=== PATIENT | female | born 1955 | race Caucasian/White ===

== ENCOUNTER 2017-06-11 19:57 | Inpatient (IN) | payer MEDICARE, MEDICAID ==
[2017-06-11 20:32] LABS: % BASOPHILS 1.5 % (0.0-2.0); % EOSINOPHILS 1.5 % (0.0-5.0); % LYMPHOCYTES 35.4 % (20.0-50.0); % NEUTROPHILS 55.6 % (40.0-80.0); BASOPHILE ABSOLUTE 0.1 Th/cumm (0-0.2); EOSINOPHILE ABSOLUTE 0.1 Th/cmm (0.1-0.4); HEMATOCRIT 41.5 % (41.0-60); HEMOGLOBIN 14.1 gm/dL (12-16); LYMPHOCYTE ABSOLUTE 2.9 Th/cmm (1.5-3.0); MEAN CELL VOLUME 93.2 fl (81-100); MEAN CORPUSCULAR HEMOGLOBIN 31.6 pg (27.0-31.0); MEAN CORPUSCULAR HGB CONC 33.9 pg (28.0-36.0); MEAN PLATELET VOLUME 7.6 fl; MONOCYTE ABSOLUTE 0.5 Th/cmm (0.3-1.0); NEUTROPHILE ABSOLUTE 4.5 Th/cmm (1.8-8.0); PLATELET COUNT 264 Th/cmm (150-400); RED BLOOD COUNT 4.46 Mil/cmm (3.80-5.10); RED CELL DISTRIBUTION WIDTH 13.4 % (11.5-20.0); WHITE BLOOD COUNT 8.1 Th/cmm (4.8-10.8)
--- NOTE | 2017-06-11 20:34 | ED Physician Chart ---
ED Chief Complaint/HPI - Patient Information Date Seen:: 06/11/17 Time Seen:: 20:00 Chief Complaint:: hallucinations and uncooperative History of Present Illness:: THIS IS A 61 YO PSYCH PATIENT SENT FROM A [facility] FOR AN EVALUATION AND TREATMENT BECAUSE SHE HAS BEEN EXTREMELY UNCOOPERATIVE. SHE IS HALLUCINATING AND UNCOOPERATIVE. Allergies:: Allergies Allergy/AdvReac Type Severity Reaction Status Date / Time aspirin Allergy Verified 06/11/17 20:18 codeine Allergy Verified 06/11/17 20:18 Vitals:: Vital Signs - 8 hr 06/11/17 20:00 Temp 97.9 F HR 90 RR 18 BP 145/77 O2 Sat % 98 Historian:: EMS, Medical Records Review:: Nurse's Note Reviewed ED Review of Systems - Review of Systems General/Constitutional: No fever, No chills, No weight loss, No weakness, No diaphoresis, No edema, No loss of appetite, Other (THE PATIENT REFUSED TO GIVE A REVIEW OF SYSTEMS.) Skin: No skin lesions, No rash, No bruising Head: No headache, No light-headedness Eyes: No loss of vision, No pain, No diplopia ENT: No earache, No nasal drainage, No sore throat, No tinnitus Neck: No neck pain, No swelling, No thyromegaly, No stiffness, No mass noted Cardio Vascular: No chest pain, No palpitations, No PND, No orthopnea, No edema Pulmonary: No SOB, No cough, No sputum, No wheezing GI: No nausea, No vomiting, No diarrhea, No pain, No melena, No hematochezia, No constipation, No hematemesis G/U: No dysuria, No frequency, No hematuria Musculoskeletal: No bone or joint pain, No back pain, No muscle pain Endocrine: No polyuria, No polydipsia Psychiatric: No prior psych history, No depression, No anxiety, No suicidal ideation Hematopoietic: No bruising, No lymphadenopathy Allergic/Immuno: No urticaria, No angioedema Neurological: No syncope, No focal symptoms, No weakness, No paresthesia, No headache, No seizure, No dizziness, No confusion, No vertigo ED Past Medical History - Past Medical History Obtainable: Yes Past Medical History: Other (ANEMIA) Family History: None Social History: Smoker, No Alcohol, No Drug Use, Care Facility Surgical History: None Psychiatricy History: Schizophrenia Medication: Reviewed Family Medical History - Family Member Mother History Unknown: Yes ED Physical Exam - Physical Examination General/Constitutional: Awake, Well-developed, well-nourished, Alert, No distress, GCS 15, Non-toxic appearing, Ambulatory Other Gen/Cons comments:: UNCOOPERATIVE AND HALLUCINATING Head: Atraumatic Eyes: Lids, conjuctiva normal, PERRL, EOMI Skin: Nl inspection, No rash, No skin lesions, No ecchymosis, Well hydrated, No lymphadenopathy ENMT: External ears, nose nl, Nasal exam nl, Lips, teeth, gums nl Neck: Nontender, Full ROM w/o pain, No JVD, No nuchal rigidity, No bruit, No mass, No stridor Respiratory: Nl effort/Exclusion, Clear to Auscultation, No Wheeze/Rhonchi/Rales Cardio Vascular: RRR, No murmur, gallop, rubs, NL S1 S2 GI: No tenderness/rebounding/guarding, No organomegaly, No hernia, Normal BS's, Nondistended, No mass/bruits, No McBurney tenderness : No CVA tenderness Extremities: No tenderness or effusion, Full ROM, normal strength in all extremities, No edema, Normal digits & nails Neuro/Psych: Alert/oriented, DTR's symmetric, Normal sensory exam, Normal motor strength, Judgement/insight normal, Mood normal, Normal gait, No focal deficits Misc: Normal back, No paraspinal tenderness ED Assessment - Assessment General Assessment: PSYCHOSIS ED Septic Shock - . Is Septic Shock (SBP<90, OR Lactate>4 mmol\L) present?: No - <6hrs of presentation: Vital Signs: Vital Signs - 8 hr 06/11/17 20:00 Temp 97.9 F HR 90 RR 18 BP 145/77 O2 Sat % 98 ED Reassessment (Disposition) - Reassessment Reassessment:: PSYCHOSIS Reassessment Condition:: Unchanged - Diagnosis Diagnosis:: PSYCHOSIS - Patient Disposition Condition at Disposition:: Unchanged ED Discharge Plan - Patient Disposition Admit/Discharge/Transfer: Acute Care w/in this hosp Additional Instructions: THIS PATIENT WILL CARED FOR BY DR. GARCÍA STARTING AT 0700.
[2017-06-11 20:51] LABS: INR 1.11 (0.5-1.4); PROTHROMBIN TIME (TEST) 11.6 SECONDS (9.5-11.5)
[2017-06-11 20:55] LABS: ALB/GLOB RATIO 1.2 (1.0-1.8); ALBUMIN 4.2 gm/dL (3.7-5.3); ALKALINE PHOSPHATASE 86 U/L (34-104); ANION GAP 16.9 (7.0-16.0); BILIRUBIN,TOTAL 0.5 mg/dL (0.3-1.0); BUN - UREA NITROGEN 17 mg/dL (7-25); CALCIUM SERUM 9.9 mg/dL (8.6-10.3); CARBON DIOXIDE 21.9 mEq/L (21.0-31.0); CHLORIDE 98 mEq/L (98-107); CREATININE - SERUM 0.7 mg/dL (0.6-1.2); GFR AFRICAN-AMERICAN > 60.0 ml/min (>90); GFR NON AFRICAN-AMERICAN > 60.0 ml/min; GLUCOSE 69 mg/dL (70-105); POTASSIUM SERUM 3.8 mEq/L (3.5-5.1); SGOT 16 U/L (13-39); SGPT/ALT 11 U/L (7-52); SODIUM SERUM 133 mEq/L (136-145); TOTAL PROTEIN,SERUM 7.8 gm/dL (6.0-8.3)
[2017-06-12 08:08] LABS: IRON LC 84 ug/dL (27-159); TIBC (LC) 276 ug/dL (250-450); UIBC 192 ug/dL (131-425)
--- NOTE | 2017-06-12 09:07 | Diagnostic Imaging Report ---
CHEST X-RAY: AP view INDICATION: pain COMPARISON: None FINDINGS: Mild chronic lung changes are noted. There is no focal consolidation or pleural effusions The heart is normal in size. Degenerative changes of the spine are noted. IMPRESSION: Mild chronic lung changes. No focal consolidation identified.
[2017-06-12 11:10] VITALS: BP 140/79
[2017-06-12] MEDS ORDERED: Maalox 30 mL Cup PO PRN ×2 (11:11→11:26)
[2017-06-12] MEDS ORDERED: Magnesium Hydroxide (MOM) 30 mL UDC PO PRN (11:11)
--- NOTE | 2017-06-12 13:23 | History & Physical ---
ADMIT DATE: 06/12/2017 CHIEF COMPLAINT: Agitated behavior. This is a limited consultation. HISTORY OF PRESENT ILLNESS: This is a 61-year-old female with history of psych disorder, was admitted from nursing facility secondary to above complaints. The patient is a best historian. Denies chest pain, shortness of breath. PAST MEDICAL HISTORY: As mentioned in history of present illness. PAST SURGICAL HISTORY: No previous surgeries in the past. ALLERGIES: ASPIRIN, CODEINE. MEDICATIONS: Cogentin, Ativan, multivitamin, Zyprexa. FAMILY HISTORY: Noncontributory. SOCIAL HISTORY: Smokes and drinks on occasion. No intravenous drug use. 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 REVIEW OF SYSTEMS: GENERAL: Complains of not feeling well. HEENT: No blurred vision or pain. LUNGS: No history of COPD or asthma. The patient is a chronic smoker. HEART: ____. ABDOMEN: No nausea, vomiting or pain. GENITOURINARY: The patient denies increased frequency or dysuria. NEUROLOGIC: No headaches, seizure or syncope. PSYCHIATRIC: Stable. PHYSICAL EXAMINATION: VITAL SIGNS: Blood pressure 140/79, respiration rate 16, pulse 84, temperature is ____. GENERAL: Elderly female, appears stated age. NECK: Supple. No mass. LUNGS: Equal breath sounds, few rhonchi. HEART: Regular rate and rhythm without appreciable murmur. ABDOMEN: Soft, globular. EXTREMITIES: No clubbing, cyanosis or edema. LABORATORY DATA: Sodium 132, potassium 2.8, BUN ____, creatinine 0.7. WBC 8.0, hemoglobin 14. ASSESSMENT AND PLAN: Hyponatremia. ALLERGIC TO ASPIRIN AND CODEINE, schizoaffective disorder, agitation. We will provide the patient with nonsteroidal anti-inflammatories. We will correct electrolyte abnormalities. We will continue to monitor the patient closely. Case was discussed with nursing staff as well as the patient. JOB# [id number]
--- NOTE | 2017-06-12 16:33 | Psychosocial Evaluation ---
DATE OF SERVICE: 06/12/2017 IDENTIFYING DATA: The patient is a 61-year-old woman, resident of a [facility]. Information obtained by directly interviewing the patient as well as reviewing the admission papers. JUSTIFICATION FOR HOSPITALIZATION: The patient is admitted here on a 5150 as being gravely disabled. CHIEF COMPLAINT: "You tell me why I am here. I should not tell anyone." HISTORY OF PRESENT ILLNESS: This is the first psychiatric hospitalization to [facility] for this patient who is reported to have been agitated and has not been following through. The patient has been mentioning that there is no reason for her here and stating that I should tell her why she has been in here. Review of the chart indicated that the patient has been brought from the intermediate for her extremely uncooperative behavior and is hallucinating and is reported to be noncompliant with the medication. The patient has been cleared medically from the Emergency Room and has been transferred over here for stabilization. I tried to get some information from the patient, but patient is not cooperative. PAST PSYCHIATRIC HISTORY: Details are not known. MEDICAL HISTORY: The patient is reported to have been on Zyprexa and Haldol Decanoate, but the patient is reported to be noncompliant with the medications. MEDICAL HISTORY: Physical examination is requested and done by Dr. Clayton. SUBSTANCE ABUSE HISTORY: None. PHYSICAL OR SEXUAL ABUSE HISTORY: None. LEGAL PROBLEMS: None at this time. STRENGTH AND ASSETS: The patient is superficially cooperative and poorly motivated. MENTAL STATUS EXAMINATION: The patient is alert and oriented x 3. Short and long-term memory are noted to be intact, but the patient is noted to be very paranoid. Personal hygiene continues to be poor. DIAGNOSTIC IMPRESSION: AXIS I: Schizophrenia, chronic paranoid type. AXIS II: None. AXIS III: As per Dr. Clayton. IMMEDIATE TREATMENT PLAN: The patient is going to be observed on inpatient unit, provided with supportive psychotherapy. The patient is going to be encouraged to participate in the groups and verbalize the concerns. Once stabilized, the patient is going to be discharged to [facility] to be followed up on an outpatient basis. JOB# [id number]
[2017-06-12] MEDS ORDERED: Benztropine 1 MG TAB PO SCH (17:00)
[2017-06-13] MEDS: Multivitamin Tab PO SCH (09:33)
--- NOTE | 2017-06-13 11:39 | Internal Medicine Prog Note ---
Internal Medicine Subjective - Subjective Patient seen and examined:: with staff, chart reviewed Patient is:: awake, verbal, interactive Patient Complaints of:: congestion Per staff patient has:: no adverse event, no episodes of fall, eating well, agitated, tolerating meds Internal Medicine Objective - Results Result Diagrams: 06/11/17 20:25 06/11/17 20:25 Recent Labs: Laboratory Last Values WBC 8.1 Th/cmm (4.8-10.8) 06/11/17 20: RBC 4.46 Mil/cmm (3.80-5.10) 06/11/17 20: Hgb 14.1 gm/dL (12-16) 06/11/17 20: Hct 41.5 % (41.0-60) 06/11/17: MCV 93.2 fl (81-100) 06/11/17 20: MCH 31.6 pg (27.0-31.0) H 06/11/17 20: MCHC Differential 33.9 pg (28.0-36.0) 06/11/17: RDW 13.4 % (11.5-20.0) 06/11/17 20: Plt Count 264 Th/cmm (150-400) 06/11/17 20: MPV 7.6 fl 06/11/17 20: Neutrophils % 55.6 % (40.0-80.0) 06/11/17 20: Lymphocytes % 35.4 % (20.0-50.0) 06/11/17: Monocytes % 6.0 % (2.0-10.0) 06/11/17: Eosinophils % 1.5 % (0.0-5.0) 06/11/17 20: Basophils % 1.5 % (0.0-2.0) 06/11/17 20: PT 11.6 SECONDS (9.5-11.5) H 06/11/17 20: INR 1.11 (0.5-1.4) 06/11/17 20:25 Sodium 133 mEq/L (136-145) L 06/11/17 20:25 Potassium 3.8 mEq/L (3.5-5.1) 06/11/17 20:25 Chloride 98 mEq/L (98-107) 06/11/17 20:25 Carbon Dioxide 21.9 mEq/L (21.0-31.0) 06/11/17 20:25 Anion Gap 16.9 (7.0-16.0) H 06/11/17 20:25 BUN 17 mg/dL (7-25) 06/11/17 20:25 Creatinine 0.7 mg/dL (0.6-1.2) 06/11/17 20:25 Est GFR ( Amer) > 60.0 ml/min (>90) 06/11/17 20:25 Est GFR (Non-Af Amer) > 60.0 ml/min 06/11/17 20:25 BUN/Creatinine Ratio 24.3 06/11/17 20:25 Glucose 69 mg/dL (70-105) L 06/11/17 20:25 Calcium 9.9 mg/dL (8.6-10.3) 06/11/17 20:25 Iron 84 ug/dL (27-159) 06/11/17 20:25 TIBC 276 ug/dL (250-450) 06/11/17 20:25 Iron Saturation 30 % (15-55) 06/11/17 20:25 Unsaturated IBC 192 ug/dL (131-425) 06/11/17 20:25 Total Bilirubin 0.5 mg/dL (0.3-1.0) 06/11/17 20:25 AST 16 U/L (13-39) 06/11/17 20:25 ALT 11 U/L (7-52) 06/11/17 20:25 Alkaline Phosphatase 86 U/L (34-104) 06/11/17 20:25 Troponin I < 0.01 ng/mL (0.01-0.05) L 06/11/17 20:25 Total Protein 7.8 gm/dL (6.0-8.3) 06/11/17 20:25 Albumin 4.2 gm/dL (3.7-5.3) 06/11/17 20:25 Globulin 3.6 gm/dL 06/11/17 20:25 Albumin/Globulin Ratio 1.2 (1.0-1.8) 06/11/17 20:25 TSH 1.45 uIU/ml (0.34-5.60) 06/11/17 20:25 - Physical Exam Vitals and I&O: Vital Signs Temp 97.6 F 06/13/17 06:46 Pulse 95 06/13/17 06:46 Resp 20 06/13/17 06:46 BP 125/77 06/13/17 06:46 Pulse Ox 98 06/13/17 06:46 Intake & Output 06/12/17 06/13/17 06/13/17 18:59 06:59 18:59 Other: # Voids 1 Active Medications: Current Medications Acetaminophen (Tylenol) 650 mg PO Q4H PRN PRN Reason: Pain Or Fever above 101 Stop: 08/11/17 11:25 Al Hydrox/Mg Hydrox/Simethicone (Maalox) 30 ml PO Q4HR PRN PRN Reason: GI DISTRESS Stop: 08/11/17 11:10 Benztropine Mesylate (Cogentin) 1 mg PO HS CESIA Stop: 08/11/17 20:59 Last Admin: 06/12/17 21:02 Dose: Not Given Lorazepam (Ativan) 0.5 mg PO Q4HR PRN; Protocol PRN Reason: Agitation Stop: 07/12/17 11:10 Magnesium Hydroxide (Milk Of Magnesia) 30 ml PO HS PRN PRN Reason: Constipation Multivitamins/Vitamin C (Theragran) 1 tab PO DAILY CESIA Stop: 08/12/17 08:59 Last Admin: 06/13/17 09:33 Dose: Not Given Olanzapine (Zyprexa) 10 mg PO HS CESIA PRN Reason: Protocol Stop: 08/11/17 20:59 Last Admin: 06/12/17 21:03 Dose: Not Given Zolpidem Tartrate (Ambien) 5 mg PO HSMR1 PRN PRN Reason: Insomnia Stop: 08/11/17 11:10 General: demented HEENT: NC/AT, PERRLA Neck: Supple, No JVD, No LAD, deformity Lungs: CTAB Cardiovascular: RRR, Normal S1, Normal S2, without murmur Abdomen: soft, non-tender, non-distended, positive bowel sound Extremities: excoriation Internal Medicine Assmt/Plan - Assessment Assessment: ASSESSMENT AND PLAN: Hyponatremia. ALLERGIC TO ASPIRIN AND CODEINE, schizoaffective disorder, agitation. - Plan Plan: We will provide the patient with nonsteroidal anti-inflammatories. We will correct electrolyte abnormalities. We will continue to monitor the patient closely. Case was discussed with nursing staff as well as the patient.
--- NOTE | 2017-06-14 01:02 | Progress Notes ---
DATE: 06/13/2017 SUBJECTIVE: Staff was spoken to. The patient is interviewed. Mood is noted to be depressed. Affect is constricted. Insight and judgment at this time are noted to be still impaired. Impulse control seems to be poor. Coping skills are noted to very poor. The patient is refusing to eat. The patient continues to be very paranoid, very irritable and angry. The patient is currently on 10 mg of Zyprexa at bedtime. The patient has been refusing to comply with the treatment plans. No side effects to the medications are noted. ASSESSMENT: The patient is still paranoid. PLAN: To continue the patient with the supportive therapy, encouraged the patient to verbalize the concerns rather than to act out. [facility]# [id number]
[2017-06-14] MEDS: Multivitamin Tab PO SCH (09:15)
--- NOTE | 2017-06-14 12:43 | Internal Medicine Prog Note ---
Internal Medicine Subjective - Subjective Patient seen and examined:: with staff, chart reviewed Patient is:: awake, verbal, interactive Patient Complaints of:: congestion Per staff patient has:: no adverse event, no episodes of fall, eating well, agitated, tolerating meds Internal Medicine Objective - Results Result Diagrams: 06/11/17 20:25 06/11/17 20:25 Recent Labs: Laboratory Last Values WBC 8.1 Th/cmm (4.8-10.8) 06/11/17 20: RBC 4.46 Mil/cmm (3.80-5.10) 06/11/17 20: Hgb 14.1 gm/dL (12-16) 06/11/17 20: Hct 41.5 % (41.0-60) 06/11/17: MCV 93.2 fl (81-100) 06/11/17 20: MCH 31.6 pg (27.0-31.0) H 06/11/17 20: MCHC Differential 33.9 pg (28.0-36.0) 06/11/17: RDW 13.4 % (11.5-20.0) 06/11/17 20: Plt Count 264 Th/cmm (150-400) 06/11/17 20: MPV 7.6 fl 06/11/17 20: Neutrophils % 55.6 % (40.0-80.0) 06/11/17 20: Lymphocytes % 35.4 % (20.0-50.0) 06/11/17: Monocytes % 6.0 % (2.0-10.0) 06/11/17: Eosinophils % 1.5 % (0.0-5.0) 06/11/17 20: Basophils % 1.5 % (0.0-2.0) 06/11/17 20: PT 11.6 SECONDS (9.5-11.5) H 06/11/17 20: INR 1.11 (0.5-1.4) 06/11/17 20:25 Sodium 133 mEq/L (136-145) L 06/11/17 20:25 Potassium 3.8 mEq/L (3.5-5.1) 06/11/17 20:25 Chloride 98 mEq/L (98-107) 06/11/17 20:25 Carbon Dioxide 21.9 mEq/L (21.0-31.0) 06/11/17 20:25 Anion Gap 16.9 (7.0-16.0) H 06/11/17 20:25 BUN 17 mg/dL (7-25) 06/11/17 20:25 Creatinine 0.7 mg/dL (0.6-1.2) 06/11/17 20:25 Est GFR ( Amer) > 60.0 ml/min (>90) 06/11/17 20:25 Est GFR (Non-Af Amer) > 60.0 ml/min 06/11/17 20:25 BUN/Creatinine Ratio 24.3 06/11/17 20:25 Glucose 69 mg/dL (70-105) L 06/11/17 20:25 Calcium 9.9 mg/dL (8.6-10.3) 06/11/17 20:25 Iron 84 ug/dL (27-159) 06/11/17 20:25 TIBC 276 ug/dL (250-450) 06/11/17 20:25 Iron Saturation 30 % (15-55) 06/11/17 20:25 Unsaturated IBC 192 ug/dL (131-425) 06/11/17 20:25 Total Bilirubin 0.5 mg/dL (0.3-1.0) 06/11/17 20:25 AST 16 U/L (13-39) 06/11/17 20:25 ALT 11 U/L (7-52) 06/11/17 20:25 Alkaline Phosphatase 86 U/L (34-104) 06/11/17 20:25 Troponin I < 0.01 ng/mL (0.01-0.05) L 06/11/17 20:25 Total Protein 7.8 gm/dL (6.0-8.3) 06/11/17 20:25 Albumin 4.2 gm/dL (3.7-5.3) 06/11/17 20:25 Globulin 3.6 gm/dL 06/11/17 20:25 Albumin/Globulin Ratio 1.2 (1.0-1.8) 06/11/17 20:25 TSH 1.45 uIU/ml (0.34-5.60) 06/11/17 20:25 - Physical Exam Vitals and I&O: Vital Signs Temp 97.7 F 06/14/17 06:04 Pulse 82 06/14/17 06:04 Resp 20 06/14/17 06:04 BP 105/53 06/14/17 06:04 Pulse Ox 99 06/14/17 06:04 Intake & Output 06/13/17 06/14/17 06/14/17 18:59 06:59 18:59 Intake Total 1200 240 Output Total 3 Balance 1197 240 Intake: Oral 1200 240 Output: Stool 3 Other: # Voids 1 # Bowel Movements 0 Active Medications: Current Medications Acetaminophen (Tylenol) 650 mg PO Q4H PRN PRN Reason: Pain Or Fever above 101 Stop: 08/11/17 11:25 Al Hydrox/Mg Hydrox/Simethicone (Maalox) 30 ml PO Q4HR PRN PRN Reason: GI DISTRESS Stop: 08/11/17 11:10 Benztropine Mesylate (Cogentin) 1 mg PO HS CESIA Stop: 08/11/17 20:59 Last Admin: 06/13/17 21:00 Dose: Not Given Lorazepam (Ativan) 0.5 mg PO Q4HR PRN; Protocol PRN Reason: Agitation Stop: 07/12/17 11:10 Magnesium Hydroxide (Milk Of Magnesia) 30 ml PO HS PRN PRN Reason: Constipation Multivitamins/Vitamin C (Theragran) 1 tab PO DAILY CESIA Stop: 08/12/17 08:59 Last Admin: 06/14/17 09:15 Dose: Not Given Olanzapine (Zyprexa) 10 mg PO HS CESIA PRN Reason: Protocol Stop: 08/11/17 20:59 Last Admin: 06/13/17 21:00 Dose: Not Given Zolpidem Tartrate (Ambien) 5 mg PO HSMR1 PRN PRN Reason: Insomnia Stop: 08/11/17 11:10 General: demented HEENT: NC/AT, PERRLA Neck: Supple, No JVD, No LAD, deformity Lungs: CTAB Cardiovascular: RRR, Normal S1, Normal S2, without murmur Abdomen: soft, non-tender, non-distended, positive bowel sound Extremities: excoriation Internal Medicine Assmt/Plan - Assessment Assessment: ASSESSMENT AND PLAN: Hyponatremia. ALLERGIC TO ASPIRIN AND CODEINE, schizoaffective disorder, agitation. - Plan Plan: We will provide the patient with nonsteroidal anti-inflammatories. We will correct electrolyte abnormalities. We will continue to monitor the patient closely. Case was discussed with nursing staff as well as the patient.
--- NOTE | 2017-06-14 19:45 | Consultation ---
DATE OF CONSULTATION: 06/14/2017 REFERRING PHYSICIAN: Marisa Garza M.D. TYPE OF CONSULTATION: Psychology. HISTORY OF PRESENT ILLNESS: The patient is a 61-year-old female. The patient is a resident of [facility]. The following is by review of the medical record and by patient's self report. The patient is admitted on a 5150 hold as being gravely disabled. The patient is stating that she does not understand why she is in the hospital and that we should not be talking to anybody about her hospitalization. According to record review, the staff at the patient's facility report that she has been agitated lately and behaviorally unredirectable. The patient is noncompliant with medication and has been resisting care. The patient is mostly uncooperative and not providing much information. The patient did not answer the question about suicidal ideation, plan or intention. PAST MEDICAL HISTORY: Please see history and physical by Dr. Clayton. PAST PSYCHIATRIC HISTORY: Details are unavailable at the time of this interview. SUBSTANCE ABUSE HISTORY: None. PSYCHOSOCIAL HISTORY: The patient is a resident of [facility]. The patient did not answer questions about family history or relationships. She did not answer questions about educational history, occupational history or lutheran affiliation. She did not answer questions about physical or sexual abuse or any legal questions or issues she is having at the time of this clinical interview. MENTAL STATUS EXAMINATION: The patient appears to be her stated age. The patient's attitude is guarded and suspicious. Eye contact is poor. Speech is delayed with verbal outbursts at times. Mood is irritable. Affect is constricted. The patient did not answer questions about suicidal or homicidal ideation, plan or intention. The patient is exhibiting paranoid ideation. The patient's behavior has been difficult to redirect. The patient is noncompliant with medication. Personal hygiene is poor. Impulse control is inadequate. Concentration is poor. Sensorium is alert and oriented to place and self only. The patient's memory seems to be impaired for short term dimension, long-term dimension needs further evaluation, but appears to be impaired. The patient did not participate in the interpretation of proverbs or respond to any further clinical interview questions. Insight is impaired. Judgment is impaired. DIAGNOSTIC IMPRESSION: AXIS I: History of schizophrenia, chronic paranoid type. AXIS II: Deferred. AXIS III: Refer to Dr. Clayton. TREATMENT PLAN: The patient has been seen by Dr. Garza for psychiatric evaluation and for the management of the patient's psychotropic medications. We will provide supportive psychotherapy to include de-escalation as well as motivational enhancement for the patient to become compliant with all aspects of her care and treatment plan specifically her medication regimen. We will provide coping strategies for phase of life issues. We will provide reality orientation and differentiation and integration to assist the patient to focus on reality based thought versus paranoid delusional thought. We will provide continued opportunities for the patient to contract for safety and no self harm prior to discharge. Thank you, Dr. Garza for this consult and the opportunity to participate with you in this patient's care. JOB# [id number] MTDD
[2017-06-15] MEDS: Multivitamin Tab PO SCH (08:00)
--- NOTE | 2017-06-15 11:42 | Internal Medicine Prog Note ---
Internal Medicine Subjective - Subjective Service Date: 06/15/17 Patient is:: awake, verbal, interactive Patient Complaints of:: congestion Per staff patient has:: no adverse event, no episodes of fall, eating well, agitated, tolerating meds Internal Medicine Objective - Results Result Diagrams: 06/11/17 20:25 06/11/17 20: Recent Labs: Laboratory Last Values WBC 8.1 Th/cmm (4.8-10.8) 06/11/17 20: RBC 4.46 Mil/cmm (3.80-5.10) 06/11/17 20: Hgb 14.1 gm/dL (12-16) 06/11/17: Hct 41.5 % (41.0-60) 06/11/17: MCV 93.2 fl (81-100) 06/11/17 20: MCH 31.6 pg (27.0-31.0) H 06/11/17: MCHC Differential 33.9 pg (28.0-36.0) 06/11/17: RDW 13.4 % (11.5-20.0) 06/11/17: Plt Count 264 Th/cmm (150-400) 06/11/17: MPV 7.6 fl 06/11/17: Neutrophils % 55.6 % (40.0-80.0) 06/11/17: Lymphocytes % 35.4 % (20.0-50.0) 06/11/17: Monocytes % 6.0 % (2.0-10.0) 06/11/17: Eosinophils % 1.5 % (0.0-5.0) 06/11/17: Basophils % 1.5 % (0.0-2.0) 06/11/17: PT 11.6 SECONDS (9.5-11.5) H 06/11/17 20: INR 1.11 (0.5-1.4) 06/11/17 20:25 Sodium 133 mEq/L (136-145) L 06/11/17 20: Potassium 3.8 mEq/L (3.5-5.1) 06/11/17 20: Chloride 98 mEq/L (98-107) 06/11/17 20:25 Carbon Dioxide 21.9 mEq/L (21.0-31.0) 06/11/17 20:25 Anion Gap 16.9 (7.0-16.0) H 06/11/17 20:25 BUN 17 mg/dL (7-25) 06/11/17 20:25 Creatinine 0.7 mg/dL (0.6-1.2) 06/11/17 20:25 Est GFR ( Amer) > 60.0 ml/min (>90) 06/11/17 20:25 Est GFR (Non-Af Amer) > 60.0 ml/min 06/11/17 20:25 BUN/Creatinine Ratio 24.3 06/11/17 20:25 Glucose 69 mg/dL (70-105) L 06/11/17 20:25 Calcium 9.9 mg/dL (8.6-10.3) 06/11/17 20:25 Iron 84 ug/dL (27-159) 06/11/17 20:25 TIBC 276 ug/dL (250-450) 06/11/17 20:25 Iron Saturation 30 % (15-55) 06/11/17 20:25 Unsaturated IBC 192 ug/dL (131-425) 06/11/17 20:25 Total Bilirubin 0.5 mg/dL (0.3-1.0) 06/11/17 20:25 AST 16 U/L (13-39) 06/11/17 20:25 ALT 11 U/L (7-52) 06/11/17 20:25 Alkaline Phosphatase 86 U/L (34-104) 06/11/17 20:25 Troponin I < 0.01 ng/mL (0.01-0.05) L 06/11/17 20:25 Total Protein 7.8 gm/dL (6.0-8.3) 06/11/17 20:25 Albumin 4.2 gm/dL (3.7-5.3) 06/11/17 20:25 Globulin 3.6 gm/dL 06/11/17 20:25 Albumin/Globulin Ratio 1.2 (1.0-1.8) 06/11/17 20:25 TSH 1.45 uIU/ml (0.34-5.60) 06/11/17 20:25 - Physical Exam Vitals and I&O: Vital Signs Temp 97.1 F 06/15/17 06:24 Pulse 93 06/15/17 06:24 Resp 19 06/15/17 06:24 BP 119/71 06/15/17 06:24 Pulse Ox 98 06/15/17 06:24 Intake & Output 06/14/17 06/15/17 06/15/17 18:59 06:59 18:59 Intake Total 300 Balance 300 Intake: Oral 300 Other: # Voids 2 # Bowel Movements 0 Active Medications: Current Medications Acetaminophen (Tylenol) 650 mg PO Q4H PRN PRN Reason: Pain Or Fever above 101 Stop: 08/11/17 11:25 Al Hydrox/Mg Hydrox/Simethicone (Maalox) 30 ml PO Q4HR PRN PRN Reason: GI DISTRESS Stop: 08/11/17 11:10 Benztropine Mesylate (Cogentin) 1 mg PO HS CESIA Stop: 08/11/17 20:59 Last Admin: 06/14/17 20:59 Dose: Not Given Lorazepam (Ativan) 0.5 mg PO Q4HR PRN; Protocol PRN Reason: Agitation Stop: 07/12/17 11:10 Magnesium Hydroxide (Milk Of Magnesia) 30 ml PO HS PRN PRN Reason: Constipation Multivitamins/Vitamin C (Theragran) 1 tab PO DAILY CESIA Stop: 08/12/17 08:59 Last Admin: 06/15/17 08:00 Dose: Not Given Olanzapine (Zyprexa) 10 mg PO HS CESIA PRN Reason: Protocol Stop: 08/11/17 20:59 Last Admin: 06/14/17 20:58 Dose: Not Given Zolpidem Tartrate (Ambien) 5 mg PO HSMR1 PRN PRN Reason: Insomnia Stop: 08/11/17 11:10 General: demented HEENT: NC/AT, PERRLA Neck: Supple, No JVD, No LAD, deformity Lungs: CTAB Cardiovascular: RRR, Normal S1, Normal S2, without murmur Abdomen: soft, non-tender, non-distended, positive bowel sound Extremities: excoriation Internal Medicine Assmt/Plan - Assessment Assessment: Hyponatremia. schizoaffective disorder agitation. . - Plan Plan: We will correct electrolyte abnormalities. We will continue to monitor the patient closely. continue current plan of care Nutritional Asmnt/Malnutr-PDOC - Dietary Evaluation Malnutrition Findings (Please click <Entered> for more info): Nutritional Asmnt/Malnutrition Start: 06/14/17 17: 15 Text: Status: Complete Freq: Document 06/14/17 17:16 LCHENG (Rec: 06/14/17 17:18 [email or web address] [email or web address]) Nutritional Asmnt/Malnutrition Patient General Information Nutritional Screening Moderate Risk Diagnosis schizophrenia Pertinent Medical Hx/Surgical Hx psycho disorder Subjective Information Consult received on 06/12 3: 08pm for refusal of meal/fluid . Per nurse note, pt c/p of refusal to eat x 3 days and refusing to take medications. Pt seen lying in bed at time of visit, very confused, not able to answer questions. Per EMR, PO intake 100% x 3 meals on 06/13. Current Diet Order/ Nutrition Support regular Pertinent Medications theragran Pertinent Labs 06/11 Na 133, glucose 69 Nutritional Hx/Data Height 5 ft 7 in Height (Calculated Centimeters) 170.2 Current Weight (lbs) 150 lb Weight (Calculated Kilograms) 68.0 Weight (Calculated Grams) 25257.9 Body Mass Index (BMI) 23.5 Weight Status Approriate GI Symptoms GI Symptoms None Last BM 0 Difficult in: None Skin Integrity/Comment: intact Current %PO Good (75-100%) Estimated Nutritional Goals BEE in Kcals: Using Current wt Calories/Kcals/Kg 25-30 Kcals Calculated 8878-6383 Protein: Using Current wt Protein g/k Protein Calculated 69 Fluid: ml 1700-2040ml (1ml/kcal) Nutritional Problem No current Nutrition Prob Problem N/A Malnutrition Alert Protein-Calorie Malnutrition N/A Is there a minimum of two criteria No selected? Query Text:Check all the applicable criteria. A minimum of two criteria are recommended for diagnosis of either severe or non-severe malnutrition. Intervention/Recommendation Comments 1. Continue with regular diet as ordered. 2. Monitor PO intake, wt, labs and skin integrity 3. F/U as low risk in 7 days, 06/21, PO check 06/17 Expected Outcomes/Goals Expected Outcomes/Goals 1. PO intake to meet at least 75% of nutritional needs. 2. Wt stability, skin to remain intact, labs to approach WNL.
--- NOTE | 2017-06-15 18:04 | Progress Notes ---
DATE: 06/14/2017 SUBJECTIVE: Staff was spoken to. The patient is interviewed. Mood is noted to be irritable. Affect is constricted. The patient is refusing to eat and refusing to follow in any of the groups. Insight and judgment at this is noted to be still impaired. Impulse control seems to be limited. The patient continues to be very paranoid. No side effects to the medications are noted. The patient is not answering the questions. She will ask a question to give an answer to whatever am asking. The patient has no insight into her illness. ASSESSMENT: The patient is still psychotic. PLAN: To continue the patient with the supportive therapy, encouraged the patient to comply with the treatment. JOB# [id number]
--- NOTE | 2017-06-16 04:58 | Progress Notes ---
DATE: 06/15/2017 SUBJECTIVE: Staff was spoken to. The patient is interviewed. Mood is noted to be irritable. Affect is constricted. Continues to be very paranoid and is stating that she does not want to be bothered and she is a Dr. Dubois. The patient has paranoid delusions. The patient is refusing to eat and the staff reported to me that the patient is reported to have been drinking from the toilet. The patient's coping skills at this time are noted to be extremely poor. ASSESSMENT: The patient is psychotic and impulsive. PLAN: To continue the patient with the supportive therapy and follow. JOB# [id number]
[2017-06-16] MEDS: Multivitamin Tab PO SCH (09:31)
--- NOTE | 2017-06-16 14:18 | Internal Medicine Prog Note ---
Internal Medicine Subjective - Subjective Service Date: 06/16/17 Patient is:: awake, verbal, interactive Patient Complaints of:: congestion Per staff patient has:: no adverse event, no episodes of fall, eating well, agitated, tolerating meds Internal Medicine Objective - Results Result Diagrams: 06/11/17 20:25 06/11/17 20: Recent Labs: Laboratory Last Values WBC 8.1 Th/cmm (4.8-10.8) 06/11/17: RBC 4.46 Mil/cmm (3.80-5.10) 06/11/17 20: Hgb 14.1 gm/dL (12-16) 06/11/17: Hct 41.5 % (41.0-60) 06/11/17: MCV 93.2 fl (81-100) 06/11/17 20: MCH 31.6 pg (27.0-31.0) H 06/11/17: MCHC Differential 33.9 pg (28.0-36.0) 06/11/17: RDW 13.4 % (11.5-20.0) 06/11/17: Plt Count 264 Th/cmm (150-400) 06/11/17: MPV 7.6 fl 06/11/17: Neutrophils % 55.6 % (40.0-80.0) 06/11/17: Lymphocytes % 35.4 % (20.0-50.0) 06/11/17: Monocytes % 6.0 % (2.0-10.0) 06/11/17: Eosinophils % 1.5 % (0.0-5.0) 06/11/17: Basophils % 1.5 % (0.0-2.0) 06/11/17: PT 11.6 SECONDS (9.5-11.5) H 06/11/17: INR 1.11 (0.5-1.4) 06/11/17 20: Sodium 133 mEq/L (136-145) L 06/11/17 20: Potassium 3.8 mEq/L (3.5-5.1) 06/11/17: Chloride 98 mEq/L (98-107) 06/11/17 20:25 Carbon Dioxide 21.9 mEq/L (21.0-31.0) 06/11/17 20:25 Anion Gap 16.9 (7.0-16.0) H 06/11/17 20:25 BUN 17 mg/dL (7-25) 06/11/17 20:25 Creatinine 0.7 mg/dL (0.6-1.2) 06/11/17 20:25 Est GFR ( Amer) > 60.0 ml/min (>90) 06/11/17 20:25 Est GFR (Non-Af Amer) > 60.0 ml/min 06/11/17 20:25 BUN/Creatinine Ratio 24.3 06/11/17 20:25 Glucose 69 mg/dL (70-105) L 06/11/17 20:25 Calcium 9.9 mg/dL (8.6-10.3) 06/11/17 20:25 Iron 84 ug/dL (27-159) 06/11/17 20:25 TIBC 276 ug/dL (250-450) 06/11/17 20:25 Iron Saturation 30 % (15-55) 06/11/17 20:25 Unsaturated IBC 192 ug/dL (131-425) 06/11/17 20:25 Total Bilirubin 0.5 mg/dL (0.3-1.0) 06/11/17 20:25 AST 16 U/L (13-39) 06/11/17 20:25 ALT 11 U/L (7-52) 06/11/17 20:25 Alkaline Phosphatase 86 U/L (34-104) 06/11/17 20:25 Troponin I < 0.01 ng/mL (0.01-0.05) L 06/11/17 20:25 Total Protein 7.8 gm/dL (6.0-8.3) 06/11/17 20:25 Albumin 4.2 gm/dL (3.7-5.3) 06/11/17 20:25 Globulin 3.6 gm/dL 06/11/17 20:25 Albumin/Globulin Ratio 1.2 (1.0-1.8) 06/11/17 20:25 TSH 1.45 uIU/ml (0.34-5.60) 06/11/17 20:25 - Physical Exam Vitals and I&O: Vital Signs Temp 97.2 F 06/16/17 07:17 Pulse 75 06/16/17 08:00 Resp 18 06/16/17 08:00 BP 121/62 06/16/17 07:17 Pulse Ox 98 06/16/17 07:17 Intake & Output 06/15/17 06/16/17 06/16/17 18:59 06:59 18:59 Intake Total 600 120 Balance 600 120 Intake: Oral 600 120 Other: # Voids 3 1 # Bowel Movements 0 Active Medications: Current Medications Acetaminophen (Tylenol) 650 mg PO Q4H PRN PRN Reason: Pain Or Fever above 101 Stop: 08/11/17 11:25 Al Hydrox/Mg Hydrox/Simethicone (Maalox) 30 ml PO Q4HR PRN PRN Reason: GI DISTRESS Stop: 08/11/17 11:10 Benztropine Mesylate (Cogentin) 1 mg PO HS CESIA Stop: 08/11/17 20:59 Last Admin: 06/15/17 20:51 Dose: Not Given Lorazepam (Ativan) 0.5 mg PO Q4HR PRN; Protocol PRN Reason: Agitation Stop: 07/12/17 11:10 Magnesium Hydroxide (Milk Of Magnesia) 30 ml PO HS PRN PRN Reason: Constipation Multivitamins/Vitamin C (Theragran) 1 tab PO DAILY CESIA Stop: 08/12/17 08:59 Last Admin: 06/16/17 09:31 Dose: 1 tab Olanzapine (Zyprexa) 10 mg PO HS CESIA PRN Reason: Protocol Stop: 08/11/17 20:59 Last Admin: 06/15/17 20:51 Dose: Not Given Zolpidem Tartrate (Ambien) 5 mg PO HSMR1 PRN PRN Reason: Insomnia Stop: 08/11/17 11:10 General: demented HEENT: NC/AT, PERRLA Neck: Supple, No JVD, No LAD, deformity Lungs: CTAB Cardiovascular: RRR, Normal S1, Normal S2, without murmur Abdomen: soft, non-tender, non-distended, positive bowel sound Extremities: excoriation Internal Medicine Assmt/Plan - Assessment Assessment: Hyponatremia. schizoaffective disorder agitation. . - Plan Plan: We will correct electrolyte abnormalities. We will continue to monitor the patient closely. continue current plan of care Nutritional Asmnt/Malnutr-PDOC - Dietary Evaluation Malnutrition Findings (Please click <Entered> for more info): Nutritional Asmnt/Malnutrition Start: 06/14/17 17: 15 Text: Status: Complete Freq: Document 06/14/17 17:16 LCHENG (Rec: 06/14/17 17:18 [email or web address] [email or web address]) Nutritional Asmnt/Malnutrition Patient General Information Nutritional Screening Moderate Risk Diagnosis schizophrenia Pertinent Medical Hx/Surgical Hx psycho disorder Subjective Information Consult received on 06/12 3: 08pm for refusal of meal/fluid . Per nurse note, pt c/p of refusal to eat x 3 days and refusing to take medications. Pt seen lying in bed at time of visit, very confused, not able to answer questions. Per EMR, PO intake 100% x 3 meals on 06/13. Current Diet Order/ Nutrition Support regular Pertinent Medications theragran Pertinent Labs 06/11 Na 133, glucose 69 Nutritional Hx/Data Height 5 ft 7 in Height (Calculated Centimeters) 170.2 Current Weight (lbs) 150 lb Weight (Calculated Kilograms) 68.0 Weight (Calculated Grams) 12455.9 Body Mass Index (BMI) 23.5 Weight Status Approriate GI Symptoms GI Symptoms None Last BM 0 Difficult in: None Skin Integrity/Comment: intact Current %PO Good (75-100%) Estimated Nutritional Goals BEE in Kcals: Using Current wt Calories/Kcals/Kg 25-30 Kcals Calculated 2747-6820 Protein: Using Current wt Protein g/k Protein Calculated 69 Fluid: ml 1700-2040ml (1ml/kcal) Nutritional Problem No current Nutrition Prob Problem N/A Malnutrition Alert Protein-Calorie Malnutrition N/A Is there a minimum of two criteria No selected? Query Text:Check all the applicable criteria. A minimum of two criteria are recommended for diagnosis of either severe or non-severe malnutrition. Intervention/Recommendation Comments 1. Continue with regular diet as ordered. 2. Monitor PO intake, wt, labs and skin integrity 3. F/U as low risk in 7 days, 06/21, PO check 06/17 Expected Outcomes/Goals Expected Outcomes/Goals 1. PO intake to meet at least 75% of nutritional needs. 2. Wt stability, skin to remain intact, labs to approach WNL.
--- NOTE | 2017-06-17 04:38 | Progress Notes ---
DATE: 06/16/2017 SUBJECTIVE: Staff was spoken to. The patient is interviewed. Mood is noted to be irritable. Affect is constricted. The patient is stating that had ____ and patient is stating that her name is Dr. Dubois and coping are noted to be very poor. The patient has been very irritable and angry and is not compliant with the medications. The patient needs to be redirected constantly. ASSESSMENT: The patient is grossly psychotic. PLAN: To continue the patient with supportive therapy, encouraged the patient to verbalize the concerns rather than to act out. The patient is not ready to be discharged to a lower level of care in view of her acute psychosis. JOB# [id number]
[2017-06-17] MEDS: Multivitamin Tab PO SCH (09:30)
--- NOTE | 2017-06-17 11:39 | Internal Medicine Prog Note ---
Internal Medicine Subjective - Subjective Service Date: 06/17/17 Patient is:: awake, verbal, interactive Patient Complaints of:: congestion Per staff patient has:: no adverse event, no episodes of fall, eating well, agitated, tolerating meds Internal Medicine Objective - Results Result Diagrams: 06/11/17 20:25 06/11/17 20: Recent Labs: Laboratory Last Values WBC 8.1 Th/cmm (4.8-10.8) 06/11/17: RBC 4.46 Mil/cmm (3.80-5.10) 06/11/17 20: Hgb 14.1 gm/dL (12-16) 06/11/17: Hct 41.5 % (41.0-60) 06/11/17: MCV 93.2 fl (81-100) 06/11/17 20: MCH 31.6 pg (27.0-31.0) H 06/11/17: MCHC Differential 33.9 pg (28.0-36.0) 06/11/17: RDW 13.4 % (11.5-20.0) 06/11/17: Plt Count 264 Th/cmm (150-400) 06/11/17: MPV 7.6 fl 06/11/17: Neutrophils % 55.6 % (40.0-80.0) 06/11/17: Lymphocytes % 35.4 % (20.0-50.0) 06/11/17: Monocytes % 6.0 % (2.0-10.0) 06/11/17: Eosinophils % 1.5 % (0.0-5.0) 06/11/17: Basophils % 1.5 % (0.0-2.0) 06/11/17: PT 11.6 SECONDS (9.5-11.5) H 06/11/17 20: INR 1.11 (0.5-1.4) 06/11/17 20:25 Sodium 133 mEq/L (136-145) L 06/11/17 20: Potassium 3.8 mEq/L (3.5-5.1) 06/11/17 20: Chloride 98 mEq/L (98-107) 06/11/17 20:25 Carbon Dioxide 21.9 mEq/L (21.0-31.0) 06/11/17 20:25 Anion Gap 16.9 (7.0-16.0) H 06/11/17 20:25 BUN 17 mg/dL (7-25) 06/11/17 20:25 Creatinine 0.7 mg/dL (0.6-1.2) 06/11/17 20:25 Est GFR ( Amer) > 60.0 ml/min (>90) 06/11/17 20:25 Est GFR (Non-Af Amer) > 60.0 ml/min 06/11/17 20:25 BUN/Creatinine Ratio 24.3 06/11/17 20:25 Glucose 69 mg/dL (70-105) L 06/11/17 20:25 Calcium 9.9 mg/dL (8.6-10.3) 06/11/17 20:25 Iron 84 ug/dL (27-159) 06/11/17 20:25 TIBC 276 ug/dL (250-450) 06/11/17 20:25 Iron Saturation 30 % (15-55) 06/11/17 20:25 Unsaturated IBC 192 ug/dL (131-425) 06/11/17 20:25 Total Bilirubin 0.5 mg/dL (0.3-1.0) 06/11/17 20:25 AST 16 U/L (13-39) 06/11/17 20:25 ALT 11 U/L (7-52) 06/11/17 20:25 Alkaline Phosphatase 86 U/L (34-104) 06/11/17 20:25 Troponin I < 0.01 ng/mL (0.01-0.05) L 06/11/17 20:25 Total Protein 7.8 gm/dL (6.0-8.3) 06/11/17 20:25 Albumin 4.2 gm/dL (3.7-5.3) 06/11/17 20:25 Globulin 3.6 gm/dL 06/11/17 20:25 Albumin/Globulin Ratio 1.2 (1.0-1.8) 06/11/17 20:25 TSH 1.45 uIU/ml (0.34-5.60) 06/11/17 20:25 - Physical Exam Vitals and I&O: Vital Signs Temp 96.9 F 06/17/17 06:27 Pulse 62 06/17/17 06:27 Resp 19 06/17/17 06:27 BP 107/57 06/17/17 06:27 Pulse Ox 96 06/17/17 06:27 Intake & Output 06/16/17 06/17/17 06/17/17 18:59 06:59 18:59 Intake Total 1200 120 Balance 1200 120 Intake: Oral 1200 120 Other: # Voids 3 3 Active Medications: Current Medications Acetaminophen (Tylenol) 650 mg PO Q4H PRN PRN Reason: Pain Or Fever above 101 Stop: 08/11/17 11:25 Al Hydrox/Mg Hydrox/Simethicone (Maalox) 30 ml PO Q4HR PRN PRN Reason: GI DISTRESS Stop: 08/11/17 11:10 Benztropine Mesylate (Cogentin) 1 mg PO HS CESIA Stop: 08/11/17 20:59 Last Admin: 06/16/17 20:42 Dose: Not Given Lorazepam (Ativan) 0.5 mg PO Q4HR PRN; Protocol PRN Reason: Agitation Stop: 07/12/17 11:10 Magnesium Hydroxide (Milk Of Magnesia) 30 ml PO HS PRN PRN Reason: Constipation Multivitamins/Vitamin C (Theragran) 1 tab PO DAILY CESIA Stop: 08/12/17 08:59 Last Admin: 06/16/17 09:31 Dose: 1 tab Olanzapine (Zyprexa) 10 mg PO HS CESIA PRN Reason: Protocol Stop: 08/11/17 20:59 Last Admin: 06/16/17 20:42 Dose: Not Given Zolpidem Tartrate (Ambien) 5 mg PO HSMR1 PRN PRN Reason: Insomnia Stop: 08/11/17 11:10 General: demented HEENT: NC/AT, PERRLA Neck: Supple, No JVD, No LAD, deformity Lungs: CTAB Cardiovascular: RRR, Normal S1, Normal S2, without murmur Abdomen: soft, non-tender, non-distended, positive bowel sound Extremities: excoriation Internal Medicine Assmt/Plan - Assessment Assessment: Hyponatremia. schizoaffective disorder agitation. . - Plan Plan: We will correct electrolyte abnormalities. We will continue to monitor the patient closely. continue current plan of care Nutritional Asmnt/Malnutr-PDOC - Dietary Evaluation Malnutrition Findings (Please click <Entered> for more info): Nutritional Asmnt/Malnutrition Start: 06/14/17 17: 15 Text: Status: Complete Freq: Document 06/14/17 17:16 LCHENG (Rec: 06/14/17 17:18 [email or web address] [email or web address]) Nutritional Asmnt/Malnutrition Patient General Information Nutritional Screening Moderate Risk Diagnosis schizophrenia Pertinent Medical Hx/Surgical Hx psycho disorder Subjective Information Consult received on 06/12 3: 08pm for refusal of meal/fluid . Per nurse note, pt c/p of refusal to eat x 3 days and refusing to take medications. Pt seen lying in bed at time of visit, very confused, not able to answer questions. Per EMR, PO intake 100% x 3 meals on 06/13. Current Diet Order/ Nutrition Support regular Pertinent Medications theragran Pertinent Labs 06/11 Na 133, glucose 69 Nutritional Hx/Data Height 5 ft 7 in Height (Calculated Centimeters) 170.2 Current Weight (lbs) 150 lb Weight (Calculated Kilograms) 68.0 Weight (Calculated Grams) 76696.9 Body Mass Index (BMI) 23.5 Weight Status Approriate GI Symptoms GI Symptoms None Last BM 0 Difficult in: None Skin Integrity/Comment: intact Current %PO Good (75-100%) Estimated Nutritional Goals BEE in Kcals: Using Current wt Calories/Kcals/Kg 25-30 Kcals Calculated 7534-4434 Protein: Using Current wt Protein g/k Protein Calculated 69 Fluid: ml 1700-2040ml (1ml/kcal) Nutritional Problem No current Nutrition Prob Problem N/A Malnutrition Alert Protein-Calorie Malnutrition N/A Is there a minimum of two criteria No selected? Query Text:Check all the applicable criteria. A minimum of two criteria are recommended for diagnosis of either severe or non-severe malnutrition. Intervention/Recommendation Comments 1. Continue with regular diet as ordered. 2. Monitor PO intake, wt, labs and skin integrity 3. F/U as low risk in 7 days, 06/21, PO check 06/17 Expected Outcomes/Goals Expected Outcomes/Goals 1. PO intake to meet at least 75% of nutritional needs. 2. Wt stability, skin to remain intact, labs to approach WNL.
--- NOTE | 2017-06-18 02:47 | Progress Notes ---
DATE: 06/17/2017 SUBJECTIVE: Staff was spoken to. The patient is interviewed. Mood is noted to be irritable. Affect is constricted. The patient's coping skills are noted to be very poor. The patient is stating her name is Silvino and the patient is stating that she should not be in here, she should not be on any medications. Insight and judgment at this time are noted to be still impaired. Impulse control is noted to be poor. The patient is reluctant to comply with the treatment. The patient has been on Zyprexa and benztropine and no side effects to the medications are noted. The patient's compliance is noted to be sketchy and erratic. PLAN: To continue the patient with supportive therapy and follow up. The patient is not ready to be discharged to a lower level of care yet. JOB# [id number]
[2017-06-18] MEDS: Multivitamin Tab PO SCH (08:54)
--- NOTE | 2017-06-18 12:40 | Internal Medicine Prog Note ---
Internal Medicine Subjective - Subjective Patient seen and examined:: with staff, chart reviewed Patient is:: awake, verbal, interactive Patient Complaints of:: congestion Per staff patient has:: no adverse event, no episodes of fall, eating well, agitated, tolerating meds Internal Medicine Objective - Results Result Diagrams: 06/11/17 20:25 06/11/17 20:25 Recent Labs: Laboratory Last Values WBC 8.1 Th/cmm (4.8-10.8) 06/11/17 20: RBC 4.46 Mil/cmm (3.80-5.10) 06/11/17 20: Hgb 14.1 gm/dL (12-16) 06/11/17 20: Hct 41.5 % (41.0-60) 06/11/17: MCV 93.2 fl (81-100) 06/11/17 20: MCH 31.6 pg (27.0-31.0) H 06/11/17 20: MCHC Differential 33.9 pg (28.0-36.0) 06/11/17: RDW 13.4 % (11.5-20.0) 06/11/17 20: Plt Count 264 Th/cmm (150-400) 06/11/17 20: MPV 7.6 fl 06/11/17 20: Neutrophils % 55.6 % (40.0-80.0) 06/11/17 20: Lymphocytes % 35.4 % (20.0-50.0) 06/11/17: Monocytes % 6.0 % (2.0-10.0) 06/11/17: Eosinophils % 1.5 % (0.0-5.0) 06/11/17 20: Basophils % 1.5 % (0.0-2.0) 06/11/17 20: PT 11.6 SECONDS (9.5-11.5) H 06/11/17 20: INR 1.11 (0.5-1.4) 06/11/17 20:25 Sodium 133 mEq/L (136-145) L 06/11/17 20:25 Potassium 3.8 mEq/L (3.5-5.1) 06/11/17 20:25 Chloride 98 mEq/L (98-107) 06/11/17 20:25 Carbon Dioxide 21.9 mEq/L (21.0-31.0) 06/11/17 20:25 Anion Gap 16.9 (7.0-16.0) H 06/11/17 20:25 BUN 17 mg/dL (7-25) 06/11/17 20:25 Creatinine 0.7 mg/dL (0.6-1.2) 06/11/17 20:25 Est GFR ( Amer) > 60.0 ml/min (>90) 06/11/17 20:25 Est GFR (Non-Af Amer) > 60.0 ml/min 06/11/17 20:25 BUN/Creatinine Ratio 24.3 06/11/17 20:25 Glucose 69 mg/dL (70-105) L 06/11/17 20:25 Calcium 9.9 mg/dL (8.6-10.3) 06/11/17 20:25 Iron 84 ug/dL (27-159) 06/11/17 20:25 TIBC 276 ug/dL (250-450) 06/11/17 20:25 Iron Saturation 30 % (15-55) 06/11/17 20:25 Unsaturated IBC 192 ug/dL (131-425) 06/11/17 20:25 Total Bilirubin 0.5 mg/dL (0.3-1.0) 06/11/17 20:25 AST 16 U/L (13-39) 06/11/17 20:25 ALT 11 U/L (7-52) 06/11/17 20:25 Alkaline Phosphatase 86 U/L (34-104) 06/11/17 20:25 Troponin I < 0.01 ng/mL (0.01-0.05) L 06/11/17 20:25 Total Protein 7.8 gm/dL (6.0-8.3) 06/11/17 20:25 Albumin 4.2 gm/dL (3.7-5.3) 06/11/17 20:25 Globulin 3.6 gm/dL 06/11/17 20:25 Albumin/Globulin Ratio 1.2 (1.0-1.8) 06/11/17 20:25 TSH 1.45 uIU/ml (0.34-5.60) 06/11/17 20:25 - Physical Exam Vitals and I&O: Vital Signs Temp 96.9 F 06/18/17 06:24 Pulse 69 06/18/17 06:24 Resp 16 06/18/17 08:00 BP 110/60 06/18/17 06:24 Pulse Ox 97 06/18/17 06:24 Intake & Output 06/17/17 06/18/17 06/18/17 18:59 06:59 18:59 Intake Total 1200 920 Balance 1200 920 Intake: Oral 1200 920 Other: # Voids 4 2 # Bowel Movements 1 Active Medications: Current Medications Acetaminophen (Tylenol) 650 mg PO Q4H PRN PRN Reason: Pain Or Fever above 101 Stop: 08/11/17 11:25 Al Hydrox/Mg Hydrox/Simethicone (Maalox) 30 ml PO Q4HR PRN PRN Reason: GI DISTRESS Stop: 08/11/17 11:10 Benztropine Mesylate (Cogentin) 1 mg PO HS CESIA Stop: 08/17/17 20:59 Lorazepam (Ativan) 0.5 mg PO Q4HR PRN; Protocol PRN Reason: Agitation Stop: 07/12/17 11:10 Magnesium Hydroxide (Milk Of Magnesia) 30 ml PO HS PRN PRN Reason: Constipation Multivitamins/Vitamin C (Theragran) 1 tab PO DAILY CESIA Stop: 08/12/17 08:59 Last Admin: 06/18/17 08:54 Dose: Not Given Olanzapine (Zyprexa) 10 mg PO HS CESIA PRN Reason: Protocol Stop: 08/11/17 20:59 Last Admin: 06/17/17 22:08 Dose: 10 mg Zolpidem Tartrate (Ambien) 5 mg PO HSMR1 PRN PRN Reason: Insomnia Stop: 08/11/17 11:10 General: demented HEENT: NC/AT, PERRLA Neck: Supple, No JVD, No LAD, deformity Lungs: CTAB Cardiovascular: RRR, Normal S1, Normal S2, without murmur Abdomen: soft, non-tender, non-distended, positive bowel sound Extremities: excoriation Internal Medicine Assmt/Plan - Assessment Assessment: ASSESSMENT AND PLAN: Hyponatremia. ALLERGIC TO ASPIRIN AND CODEINE, schizoaffective disorder, agitation. - Plan Plan: We will provide the patient with nonsteroidal anti-inflammatories. We will correct electrolyte abnormalities. We will continue to monitor the patient closely. Case was discussed with nursing staff as well as the patient. Nutritional Asmnt/Malnutr-PDOC - Dietary Evaluation Malnutrition Findings (Please click <Entered> for more info): Nutritional Asmnt/Malnutrition Start: 06/14/17 17: 15 Text: Status: Complete Freq: Document 06/14/17 17:16 LCHENG (Rec: 06/14/17 17:18 LCHEN [email or web address]) Nutritional Asmnt/Malnutrition Patient General Information Nutritional Screening Moderate Risk Diagnosis schizophrenia Pertinent Medical Hx/Surgical Hx psycho disorder Subjective Information Consult received on 06/12 3: 08pm for refusal of meal/fluid . Per nurse note, pt c/p of refusal to eat x 3 days and refusing to take medications. Pt seen lying in bed at time of visit, very confused, not able to answer questions. Per EMR, PO intake 100% x 3 meals on 06/13. Current Diet Order/ Nutrition Support regular Pertinent Medications theragran Pertinent Labs 06/11 Na 133, glucose 69 Nutritional Hx/Data Height 1.7 m Height (Calculated Centimeters) 170.2 Current Weight (lbs) 68.039 kg Weight (Calculated Kilograms) 68.0 Weight (Calculated Grams) 12181.9 Body Mass Index (BMI) 23.5 Weight Status Approriate GI Symptoms GI Symptoms None Last BM 0 Difficult in: None Skin Integrity/Comment: intact Current %PO Good (75-100%) Estimated Nutritional Goals BEE in Kcals: Using Current wt Calories/Kcals/Kg 25-30 Kcals Calculated 2020-3689 Protein: Using Current wt Protein g/k Protein Calculated 69 Fluid: ml 1700-2040ml (1ml/kcal) Nutritional Problem No current Nutrition Prob Problem N/A Malnutrition Alert Protein-Calorie Malnutrition N/A Is there a minimum of two criteria No selected? Query Text:Check all the applicable criteria. A minimum of two criteria are recommended for diagnosis of either severe or non-severe malnutrition. Intervention/Recommendation Comments 1. Continue with regular diet as ordered. 2. Monitor PO intake, wt, labs and skin integrity 3. F/U as low risk in 7 days, 06/21, PO check 06/17 Expected Outcomes/Goals Expected Outcomes/Goals 1. PO intake to meet at least 75% of nutritional needs. 2. Wt stability, skin to remain intact, labs to approach WNL.
[2017-06-18] MEDS: Benztropine 1 MG TAB PO SCH ×2 (21:02→23:22)
--- NOTE | 2017-06-19 00:50 | Progress Notes ---
DATE: 06/18/2017 SUBJECTIVE: Staff was spoken to. The patient is interviewed. Mood is noted to be irritable. Affect is constricted. Insight and judgment are noted to be impaired. Impulse control noted to be irritable. Continues to be very paranoid and dizziness, insisting that she is Dr. Dubois and does not need to be on any medications. Coping skills are noted to be very poor. ASSESSMENT: The patient is still grossly psychotic. PLAN: To continue the patient with the current medications. I encouraged the patient to verbalize the concerns rather than to act out. JOB# [id number]
[2017-06-19] MEDS: Multivitamin Tab PO SCH (08:01)
--- NOTE | 2017-06-19 13:59 | Internal Medicine Prog Note ---
Internal Medicine Subjective - Subjective Service Date: 06/19/17 Patient is:: awake, verbal, interactive Patient Complaints of:: congestion Per staff patient has:: no adverse event, no episodes of fall, eating well, agitated, tolerating meds Internal Medicine Objective - Results Result Diagrams: 06/11/17 20:25 06/11/17 20: Recent Labs: Laboratory Last Values WBC 8.1 Th/cmm (4.8-10.8) 06/11/17: RBC 4.46 Mil/cmm (3.80-5.10) 06/11/17 20: Hgb 14.1 gm/dL (12-16) 06/11/17: Hct 41.5 % (41.0-60) 06/11/17: MCV 93.2 fl (81-100) 06/11/17 20: MCH 31.6 pg (27.0-31.0) H 06/11/17: MCHC Differential 33.9 pg (28.0-36.0) 06/11/17: RDW 13.4 % (11.5-20.0) 06/11/17: Plt Count 264 Th/cmm (150-400) 06/11/17: MPV 7.6 fl 06/11/17: Neutrophils % 55.6 % (40.0-80.0) 06/11/17: Lymphocytes % 35.4 % (20.0-50.0) 06/11/17: Monocytes % 6.0 % (2.0-10.0) 06/11/17: Eosinophils % 1.5 % (0.0-5.0) 06/11/17: Basophils % 1.5 % (0.0-2.0) 06/11/17: PT 11.6 SECONDS (9.5-11.5) H 06/11/17 20: INR 1.11 (0.5-1.4) 06/11/17 20:25 Sodium 133 mEq/L (136-145) L 06/11/17 20: Potassium 3.8 mEq/L (3.5-5.1) 06/11/17 20: Chloride 98 mEq/L (98-107) 06/11/17 20:25 Carbon Dioxide 21.9 mEq/L (21.0-31.0) 06/11/17 20:25 Anion Gap 16.9 (7.0-16.0) H 06/11/17 20:25 BUN 17 mg/dL (7-25) 06/11/17 20:25 Creatinine 0.7 mg/dL (0.6-1.2) 06/11/17 20:25 Est GFR ( Amer) > 60.0 ml/min (>90) 06/11/17 20:25 Est GFR (Non-Af Amer) > 60.0 ml/min 06/11/17 20:25 BUN/Creatinine Ratio 24.3 06/11/17 20:25 Glucose 69 mg/dL (70-105) L 06/11/17 20:25 Calcium 9.9 mg/dL (8.6-10.3) 06/11/17 20:25 Iron 84 ug/dL (27-159) 06/11/17 20:25 TIBC 276 ug/dL (250-450) 06/11/17 20:25 Iron Saturation 30 % (15-55) 06/11/17 20:25 Unsaturated IBC 192 ug/dL (131-425) 06/11/17 20:25 Total Bilirubin 0.5 mg/dL (0.3-1.0) 06/11/17 20:25 AST 16 U/L (13-39) 06/11/17 20:25 ALT 11 U/L (7-52) 06/11/17 20:25 Alkaline Phosphatase 86 U/L (34-104) 06/11/17 20:25 Troponin I < 0.01 ng/mL (0.01-0.05) L 06/11/17 20:25 Total Protein 7.8 gm/dL (6.0-8.3) 06/11/17 20:25 Albumin 4.2 gm/dL (3.7-5.3) 06/11/17 20:25 Globulin 3.6 gm/dL 06/11/17 20:25 Albumin/Globulin Ratio 1.2 (1.0-1.8) 06/11/17 20:25 TSH 1.45 uIU/ml (0.34-5.60) 06/11/17 20:25 - Physical Exam Vitals and I&O: Vital Signs Temp 97.9 F 06/19/17 06:34 Pulse 75 06/19/17 06:34 Resp 20 06/19/17 06:34 BP 109/69 06/19/17 06:34 Pulse Ox 98 06/19/17 06:34 Intake & Output 06/18/17 06/19/17 06/19/17 18:59 06:59 18:59 Intake Total 1500 660 Balance 1500 660 Intake: Oral 1500 660 Other: # Voids 3 1 # Bowel Movements 1 Active Medications: Current Medications Acetaminophen (Tylenol) 650 mg PO Q4H PRN PRN Reason: Pain Or Fever above 101 Stop: 08/11/17 11:25 Al Hydrox/Mg Hydrox/Simethicone (Maalox) 30 ml PO Q4HR PRN PRN Reason: GI DISTRESS Stop: 08/11/17 11:10 Benztropine Mesylate (Cogentin) 1 mg PO HS CESIA Stop: 08/17/17 20:59 Last Admin: 06/18/17 23:22 Dose: Not Given Haloperidol (Haldol) 5 mg PO BID CESIA PRN Reason: Protocol Stop: 08/18/17 16:59 Lorazepam (Ativan) 0.5 mg PO Q4HR PRN; Protocol PRN Reason: Agitation Stop: 07/12/17 11:10 Magnesium Hydroxide (Milk Of Magnesia) 30 ml PO HS PRN PRN Reason: Constipation Multivitamins/Vitamin C (Theragran) 1 tab PO DAILY CESIA Stop: 08/12/17 08:59 Last Admin: 06/19/17 08:01 Dose: Not Given Olanzapine (Zyprexa) 10 mg PO HS CESIA PRN Reason: Protocol Stop: 08/11/17 20:59 Last Admin: 06/18/17 23:24 Dose: Not Given Zolpidem Tartrate (Ambien) 5 mg PO HSMR1 PRN PRN Reason: Insomnia Stop: 08/11/17 11:10 General: demented HEENT: NC/AT, PERRLA Neck: Supple, No JVD, No LAD, deformity Lungs: CTAB Cardiovascular: RRR, Normal S1, Normal S2, without murmur Abdomen: soft, non-tender, non-distended, positive bowel sound Extremities: excoriation Internal Medicine Assmt/Plan - Assessment Assessment: Hyponatremia. schizoaffective disorder agitation. . - Plan Plan: We will correct electrolyte abnormalities. We will continue to monitor the patient closely. continue current plan of care Nutritional Asmnt/Malnutr-PDOC - Dietary Evaluation Malnutrition Findings (Please click <Entered> for more info): Nutritional Asmnt/Malnutrition Start: 06/14/17 17: 15 Text: Status: Complete Freq: Document 06/14/17 17:16 LCTIFFANIE (Rec: 06/14/17 17:18 LCHEN [email or web address]) Nutritional Asmnt/Malnutrition Patient General Information Nutritional Screening Moderate Risk Diagnosis schizophrenia Pertinent Medical Hx/Surgical Hx psycho disorder Subjective Information Consult received on 06/12 3: 08pm for refusal of meal/fluid . Per nurse note, pt c/p of refusal to eat x 3 days and refusing to take medications. Pt seen lying in bed at time of visit, very confused, not able to answer questions. Per EMR, PO intake 100% x 3 meals on 06/13. Current Diet Order/ Nutrition Support regular Pertinent Medications theragran Pertinent Labs 06/11 Na 133, glucose 69 Nutritional Hx/Data Height 5 ft 7 in Height (Calculated Centimeters) 170.2 Current Weight (lbs) 150 lb Weight (Calculated Kilograms) 68.0 Weight (Calculated Grams) 25707.9 Body Mass Index (BMI) 23.5 Weight Status Approriate GI Symptoms GI Symptoms None Last BM 0 Difficult in: None Skin Integrity/Comment: intact Current %PO Good (75-100%) Estimated Nutritional Goals BEE in Kcals: Using Current wt Calories/Kcals/Kg 25-30 Kcals Calculated 8229-0392 Protein: Using Current wt Protein g/k Protein Calculated 69 Fluid: ml 1700-2040ml (1ml/kcal) Nutritional Problem No current Nutrition Prob Problem N/A Malnutrition Alert Protein-Calorie Malnutrition N/A Is there a minimum of two criteria No selected? Query Text:Check all the applicable criteria. A minimum of two criteria are recommended for diagnosis of either severe or non-severe malnutrition. Intervention/Recommendation Comments 1. Continue with regular diet as ordered. 2. Monitor PO intake, wt, labs and skin integrity 3. F/U as low risk in 7 days, 06/21, PO check 06/17 Expected Outcomes/Goals Expected Outcomes/Goals 1. PO intake to meet at least 75% of nutritional needs. 2. Wt stability, skin to remain intact, labs to approach WNL.
[2017-06-19] MEDS: Benztropine 1 MG TAB PO SCH (20:47)
--- NOTE | 2017-06-20 00:10 | Progress Notes ---
DATE: 06/19/2017 SUBJECTIVE: Staff was spoken to. The patient is interviewed. Mood is noted to be irritable. Affect is constricted. Coping skills are noted to be still poor. Insight and judgment are poor. The patient continues to be paranoid. The patient is stating that she is Dr. Dubois and she should not be ____ her name. The patient's insight and judgment at this time are noted to be still impaired. Impulse control seems to be poor. Coping skills are noted to be very poor. The patient is grossly psychotic and hence I have decided to increase the dose on the haloperidol to 5 mg twice a day and possibly give the Haldol Decanoate to the patient when she is able to tolerate the Haldol. [facility]# [id number]
[2017-06-20] MEDS: Multivitamin Tab PO SCH (09:04)
--- NOTE | 2017-06-20 15:58 | Internal Medicine Prog Note ---
Internal Medicine Subjective - Subjective Service Date: 06/20/17 Patient is:: awake, verbal, interactive Patient Complaints of:: congestion Per staff patient has:: no adverse event, no episodes of fall, eating well, agitated, tolerating meds Internal Medicine Objective - Results Result Diagrams: 06/11/17 20:25 06/11/17 20: Recent Labs: Laboratory Last Values WBC 8.1 Th/cmm (4.8-10.8) 06/11/17 20: RBC 4.46 Mil/cmm (3.80-5.10) 06/11/17 20: Hgb 14.1 gm/dL (12-16) 06/11/17: Hct 41.5 % (41.0-60) 06/11/17: MCV 93.2 fl (81-100) 06/11/17 20: MCH 31.6 pg (27.0-31.0) H 06/11/17: MCHC Differential 33.9 pg (28.0-36.0) 06/11/17: RDW 13.4 % (11.5-20.0) 06/11/17: Plt Count 264 Th/cmm (150-400) 06/11/17: MPV 7.6 fl 06/11/17: Neutrophils % 55.6 % (40.0-80.0) 06/11/17: Lymphocytes % 35.4 % (20.0-50.0) 06/11/17: Monocytes % 6.0 % (2.0-10.0) 06/11/17: Eosinophils % 1.5 % (0.0-5.0) 06/11/17: Basophils % 1.5 % (0.0-2.0) 06/11/17: PT 11.6 SECONDS (9.5-11.5) H 06/11/17 20: INR 1.11 (0.5-1.4) 06/11/17 20:25 Sodium 133 mEq/L (136-145) L 06/11/17 20: Potassium 3.8 mEq/L (3.5-5.1) 06/11/17 20: Chloride 98 mEq/L (98-107) 06/11/17 20:25 Carbon Dioxide 21.9 mEq/L (21.0-31.0) 06/11/17 20:25 Anion Gap 16.9 (7.0-16.0) H 06/11/17 20:25 BUN 17 mg/dL (7-25) 06/11/17 20:25 Creatinine 0.7 mg/dL (0.6-1.2) 06/11/17 20:25 Est GFR ( Amer) > 60.0 ml/min (>90) 06/11/17 20:25 Est GFR (Non-Af Amer) > 60.0 ml/min 06/11/17 20:25 BUN/Creatinine Ratio 24.3 06/11/17 20:25 Glucose 69 mg/dL (70-105) L 06/11/17 20:25 Calcium 9.9 mg/dL (8.6-10.3) 06/11/17 20:25 Iron 84 ug/dL (27-159) 06/11/17 20:25 TIBC 276 ug/dL (250-450) 06/11/17 20:25 Iron Saturation 30 % (15-55) 06/11/17 20:25 Unsaturated IBC 192 ug/dL (131-425) 06/11/17 20:25 Total Bilirubin 0.5 mg/dL (0.3-1.0) 06/11/17 20:25 AST 16 U/L (13-39) 06/11/17 20:25 ALT 11 U/L (7-52) 06/11/17 20:25 Alkaline Phosphatase 86 U/L (34-104) 06/11/17 20:25 Troponin I < 0.01 ng/mL (0.01-0.05) L 06/11/17 20:25 Total Protein 7.8 gm/dL (6.0-8.3) 06/11/17 20:25 Albumin 4.2 gm/dL (3.7-5.3) 06/11/17 20:25 Globulin 3.6 gm/dL 06/11/17 20:25 Albumin/Globulin Ratio 1.2 (1.0-1.8) 06/11/17 20:25 TSH 1.45 uIU/ml (0.34-5.60) 06/11/17 20:25 - Physical Exam Vitals and I&O: Vital Signs Temp 96.8 F 06/19/17 20:27 Pulse 78 06/19/17 20:27 Resp 19 06/19/17 20:27 BP 102/55 06/19/17 20:27 Pulse Ox 95 06/19/17 20:27 Intake & Output 06/19/17 06/20/17 06/20/17 18:59 06:59 18:59 Intake Total 1200 480 Balance 1200 480 Intake: Oral 1200 480 Other: # Voids 3 1 # Bowel Movements 1 Active Medications: Current Medications Acetaminophen (Tylenol) 650 mg PO Q4H PRN PRN Reason: Pain Or Fever above 101 Stop: 08/11/17 11:25 Al Hydrox/Mg Hydrox/Simethicone (Maalox) 30 ml PO Q4HR PRN PRN Reason: GI DISTRESS Stop: 08/11/17 11:10 Benztropine Mesylate (Cogentin) 1 mg PO HS CESIA Stop: 08/17/17 20:59 Last Admin: 06/19/17 20:47 Dose: Not Given Haloperidol (Haldol) 5 mg PO BID CESIA PRN Reason: Protocol Stop: 08/18/17 16:59 Last Admin: 06/20/17 09:04 Dose: Not Given Lorazepam (Ativan) 0.5 mg PO Q4HR PRN; Protocol PRN Reason: Agitation Stop: 07/12/17 11:10 Magnesium Hydroxide (Milk Of Magnesia) 30 ml PO HS PRN PRN Reason: Constipation Multivitamins/Vitamin C (Theragran) 1 tab PO DAILY CESIA Stop: 08/12/17 08:59 Last Admin: 06/20/17 09:04 Dose: Not Given Olanzapine (Zyprexa) 10 mg PO HS CESIA PRN Reason: Protocol Stop: 08/11/17 20:59 Last Admin: 06/19/17 20:47 Dose: Not Given Zolpidem Tartrate (Ambien) 5 mg PO HSMR1 PRN PRN Reason: Insomnia Stop: 08/11/17 11:10 General: demented HEENT: NC/AT, PERRLA Neck: Supple, No JVD, No LAD, deformity Lungs: CTAB Cardiovascular: RRR, Normal S1, Normal S2, without murmur Abdomen: soft, non-tender, non-distended, positive bowel sound Extremities: excoriation Internal Medicine Assmt/Plan - Assessment Assessment: Hyponatremia. schizoaffective disorder agitation. . - Plan Plan: We will correct electrolyte abnormalities. We will continue to monitor the patient closely. continue current plan of care Nutritional Asmnt/Malnutr-PDOC - Dietary Evaluation Malnutrition Findings (Please click <Entered> for more info): Nutritional Asmnt/Malnutrition Start: 06/14/17 17: 15 Text: Status: Complete Freq: Document 06/14/17 17:16 HENG (Rec: 06/14/17 17:18 HEN [email or web address]) Nutritional Asmnt/Malnutrition Patient General Information Nutritional Screening Moderate Risk Diagnosis schizophrenia Pertinent Medical Hx/Surgical Hx psycho disorder Subjective Information Consult received on 06/12 3: 08pm for refusal of meal/fluid . Per nurse note, pt c/p of refusal to eat x 3 days and refusing to take medications. Pt seen lying in bed at time of visit, very confused, not able to answer questions. Per EMR, PO intake 100% x 3 meals on 06/13. Current Diet Order/ Nutrition Support regular Pertinent Medications theragran Pertinent Labs 06/11 Na 133, glucose 69 Nutritional Hx/Data Height 5 ft 7 in Height (Calculated Centimeters) 170.2 Current Weight (lbs) 150 lb Weight (Calculated Kilograms) 68.0 Weight (Calculated Grams) 74701.9 Body Mass Index (BMI) 23.5 Weight Status Approriate GI Symptoms GI Symptoms None Last BM 0 Difficult in: None Skin Integrity/Comment: intact Current %PO Good (75-100%) Estimated Nutritional Goals BEE in Kcals: Using Current wt Calories/Kcals/Kg 25-30 Kcals Calculated 0235-7909 Protein: Using Current wt Protein g/k Protein Calculated 69 Fluid: ml 1700-2040ml (1ml/kcal) Nutritional Problem No current Nutrition Prob Problem N/A Malnutrition Alert Protein-Calorie Malnutrition N/A Is there a minimum of two criteria No selected? Query Text:Check all the applicable criteria. A minimum of two criteria are recommended for diagnosis of either severe or non-severe malnutrition. Intervention/Recommendation Comments 1. Continue with regular diet as ordered. 2. Monitor PO intake, wt, labs and skin integrity 3. F/U as low risk in 7 days, 4/30, PO check 06/17 Expected Outcomes/Goals Expected Outcomes/Goals 1. PO intake to meet at least 75% of nutritional needs. 2. Wt stability, skin to remain intact, labs to approach WNL.
[2017-06-20] MEDS: Benztropine 1 MG TAB PO SCH (20:18)
--- NOTE | 2017-06-20 22:18 | Progress Notes ---
DATE: 06/20/2017 SUBJECTIVE: Staff was spoken to. The patient is interviewed. Mood is noted to be irritable. Affect is constricted. The patient is stating that her name is Silvino and patient is stating that she should not ____. The patient's coping skills are noted to be very poor. The patient is very paranoid. No side effects to the medications are noted. Insight and judgment also noted to be very much impaired. ASSESSMENT: The patient is still grossly psychotic. PLAN: To continue the patient with the current medications and follow up with the supportive therapy. JOB# [id number]
[2017-06-21] MEDS: Multivitamin Tab PO SCH (09:03)
--- NOTE | 2017-06-21 14:16 | Internal Medicine Prog Note ---
Internal Medicine Subjective - Subjective Service Date: 06/21/17 Patient is:: awake, verbal, interactive Patient Complaints of:: congestion Per staff patient has:: no adverse event, no episodes of fall, eating well, agitated, tolerating meds Internal Medicine Objective - Results Result Diagrams: 06/11/17 20:25 06/11/17 20: Recent Labs: Laboratory Last Values WBC 8.1 Th/cmm (4.8-10.8) 06/11/17 20: RBC 4.46 Mil/cmm (3.80-5.10) 06/11/17 20: Hgb 14.1 gm/dL (12-16) 06/11/17: Hct 41.5 % (41.0-60) 06/11/17: MCV 93.2 fl (81-100) 06/11/17 20: MCH 31.6 pg (27.0-31.0) H 06/11/17: MCHC Differential 33.9 pg (28.0-36.0) 06/11/17: RDW 13.4 % (11.5-20.0) 06/11/17: Plt Count 264 Th/cmm (150-400) 06/11/17: MPV 7.6 fl 06/11/17: Neutrophils % 55.6 % (40.0-80.0) 06/11/17: Lymphocytes % 35.4 % (20.0-50.0) 06/11/17: Monocytes % 6.0 % (2.0-10.0) 06/11/17: Eosinophils % 1.5 % (0.0-5.0) 06/11/17: Basophils % 1.5 % (0.0-2.0) 06/11/17: PT 11.6 SECONDS (9.5-11.5) H 06/11/17 20: INR 1.11 (0.5-1.4) 06/11/17 20:25 Sodium 133 mEq/L (136-145) L 06/11/17 20: Potassium 3.8 mEq/L (3.5-5.1) 06/11/17 20: Chloride 98 mEq/L (98-107) 06/11/17 20:25 Carbon Dioxide 21.9 mEq/L (21.0-31.0) 06/11/17 20:25 Anion Gap 16.9 (7.0-16.0) H 06/11/17 20:25 BUN 17 mg/dL (7-25) 06/11/17 20:25 Creatinine 0.7 mg/dL (0.6-1.2) 06/11/17 20:25 Est GFR ( Amer) > 60.0 ml/min (>90) 06/11/17 20:25 Est GFR (Non-Af Amer) > 60.0 ml/min 06/11/17 20:25 BUN/Creatinine Ratio 24.3 06/11/17 20:25 Glucose 69 mg/dL (70-105) L 06/11/17 20:25 Calcium 9.9 mg/dL (8.6-10.3) 06/11/17 20:25 Iron 84 ug/dL (27-159) 06/11/17 20:25 TIBC 276 ug/dL (250-450) 06/11/17 20:25 Iron Saturation 30 % (15-55) 06/11/17 20:25 Unsaturated IBC 192 ug/dL (131-425) 06/11/17 20:25 Total Bilirubin 0.5 mg/dL (0.3-1.0) 06/11/17 20:25 AST 16 U/L (13-39) 06/11/17 20:25 ALT 11 U/L (7-52) 06/11/17 20:25 Alkaline Phosphatase 86 U/L (34-104) 06/11/17 20:25 Troponin I < 0.01 ng/mL (0.01-0.05) L 06/11/17 20:25 Total Protein 7.8 gm/dL (6.0-8.3) 06/11/17 20:25 Albumin 4.2 gm/dL (3.7-5.3) 06/11/17 20:25 Globulin 3.6 gm/dL 06/11/17 20:25 Albumin/Globulin Ratio 1.2 (1.0-1.8) 06/11/17 20:25 TSH 1.45 uIU/ml (0.34-5.60) 06/11/17 20:25 - Physical Exam Vitals and I&O: Vital Signs Temp 97.7 F 06/20/17 20:30 Pulse 88 06/20/17 20:30 Resp 20 06/20/17 20:30 BP 128/77 06/20/17 20:30 Pulse Ox 97 06/20/17 20:30 Intake & Output 06/20/17 06/21/17 06/21/17 18:59 06:59 18:59 Intake Total 950 480 Balance 950 480 Intake: Oral 950 480 Other: # Voids 4 1 # Bowel Movements 1 Active Medications: Current Medications Acetaminophen (Tylenol) 650 mg PO Q4H PRN PRN Reason: Pain Or Fever above 101 Stop: 08/11/17 11:25 Al Hydrox/Mg Hydrox/Simethicone (Maalox) 30 ml PO Q4HR PRN PRN Reason: GI DISTRESS Stop: 08/11/17 11:10 Benztropine Mesylate (Cogentin) 1 mg PO HS CESIA Stop: 08/17/17 20:59 Last Admin: 06/20/17 20:18 Dose: Not Given Haloperidol (Haldol) 5 mg PO BID CESIA PRN Reason: Protocol Stop: 08/18/17 16:59 Last Admin: 06/21/17 09:03 Dose: Not Given Lorazepam (Ativan) 0.5 mg PO Q4HR PRN; Protocol PRN Reason: Agitation Stop: 07/12/17 11:10 Magnesium Hydroxide (Milk Of Magnesia) 30 ml PO HS PRN PRN Reason: Constipation Multivitamins/Vitamin C (Theragran) 1 tab PO DAILY CESIA Stop: 08/12/17 08:59 Last Admin: 06/21/17 09:03 Dose: Not Given Olanzapine (Zyprexa) 10 mg PO HS CESIA PRN Reason: Protocol Stop: 08/11/17 20:59 Last Admin: 06/20/17 20:18 Dose: Not Given Zolpidem Tartrate (Ambien) 5 mg PO HSMR1 PRN PRN Reason: Insomnia Stop: 08/11/17 11:10 General: demented HEENT: NC/AT, PERRLA Neck: Supple, No JVD, No LAD, deformity Lungs: CTAB Cardiovascular: RRR, Normal S1, Normal S2, without murmur Abdomen: soft, non-tender, non-distended, positive bowel sound Extremities: excoriation Internal Medicine Assmt/Plan - Assessment Assessment: Hyponatremia. schizoaffective disorder agitation. . - Plan Plan: We will correct electrolyte abnormalities. We will continue to monitor the patient closely. continue current plan of care Nutritional Asmnt/Malnutr-PDOC - Dietary Evaluation Malnutrition Findings (Please click <Entered> for more info): Nutritional Asmnt/Malnutrition Start: 06/14/17 17: 15 Text: Status: Complete Freq: Document 06/14/17 17:16 HENG (Rec: 06/14/17 17:18 HEN [email or web address]) Nutritional Asmnt/Malnutrition Patient General Information Nutritional Screening Moderate Risk Diagnosis schizophrenia Pertinent Medical Hx/Surgical Hx psycho disorder Subjective Information Consult received on 06/12 3: 08pm for refusal of meal/fluid . Per nurse note, pt c/p of refusal to eat x 3 days and refusing to take medications. Pt seen lying in bed at time of visit, very confused, not able to answer questions. Per EMR, PO intake 100% x 3 meals on 06/13. Current Diet Order/ Nutrition Support regular Pertinent Medications theragran Pertinent Labs 06/11 Na 133, glucose 69 Nutritional Hx/Data Height 5 ft 7 in Height (Calculated Centimeters) 170.2 Current Weight (lbs) 150 lb Weight (Calculated Kilograms) 68.0 Weight (Calculated Grams) 66627.9 Body Mass Index (BMI) 23.5 Weight Status Approriate GI Symptoms GI Symptoms None Last BM 0 Difficult in: None Skin Integrity/Comment: intact Current %PO Good (75-100%) Estimated Nutritional Goals BEE in Kcals: Using Current wt Calories/Kcals/Kg 25-30 Kcals Calculated 9520-0959 Protein: Using Current wt Protein g/k Protein Calculated 69 Fluid: ml 1700-2040ml (1ml/kcal) Nutritional Problem No current Nutrition Prob Problem N/A Malnutrition Alert Protein-Calorie Malnutrition N/A Is there a minimum of two criteria No selected? Query Text:Check all the applicable criteria. A minimum of two criteria are recommended for diagnosis of either severe or non-severe malnutrition. Intervention/Recommendation Comments 1. Continue with regular diet as ordered. 2. Monitor PO intake, wt, labs and skin integrity 3. F/U as low risk in 7 days, 4/30, PO check 06/17 Expected Outcomes/Goals Expected Outcomes/Goals 1. PO intake to meet at least 75% of nutritional needs. 2. Wt stability, skin to remain intact, labs to approach WNL.
[2017-06-21] MEDS ORDERED: Haloperidol Lactate 5 mg/mL 1mL Vial IM ONE (18:35)
[2017-06-21] MEDS ORDERED: Haloperidol Lactate 5 mg/mL 1mL Vial ONE (18:40)
[2017-06-21] MEDS: Benztropine 1 MG TAB PO SCH (20:31)
--- NOTE | 2017-06-22 06:01 | Progress Notes ---
DATE: 06/21/2017 SUBJECTIVE: Staff was spoken to. The patient is interviewed. Mood is noted to be irritable. Affect is constricted. The patient is screaming and yelling and using profanities and has been throwing the forks at the staff members and stating that she is Dr. Dubois. The patient could not be contained at a lower level of care. Verbal intervention failed. The patient has to be given a dose of Haldol, Benadryl and Ativan to calm her down. The patient at this time is grossly psychotic. The patient is not ready to be discharged to a lower level of care. JOB# [id number]
[2017-06-22] MEDS: Multivitamin Tab PO SCH (09:51)
--- NOTE | 2017-06-22 14:06 | Internal Medicine Prog Note ---
Internal Medicine Subjective - Subjective Service Date: 06/22/17 Patient is:: awake, verbal, interactive Patient Complaints of:: congestion Per staff patient has:: no adverse event, no episodes of fall, eating well, agitated, tolerating meds Internal Medicine Objective - Results Result Diagrams: 06/11/17 20:25 06/11/17 20: Recent Labs: Laboratory Last Values WBC 8.1 Th/cmm (4.8-10.8) 06/11/17 20: RBC 4.46 Mil/cmm (3.80-5.10) 06/11/17 20: Hgb 14.1 gm/dL (12-16) 06/11/17: Hct 41.5 % (41.0-60) 06/11/17: MCV 93.2 fl (81-100) 06/11/17 20: MCH 31.6 pg (27.0-31.0) H 06/11/17: MCHC Differential 33.9 pg (28.0-36.0) 06/11/17: RDW 13.4 % (11.5-20.0) 06/11/17: Plt Count 264 Th/cmm (150-400) 06/11/17: MPV 7.6 fl 06/11/17: Neutrophils % 55.6 % (40.0-80.0) 06/11/17: Lymphocytes % 35.4 % (20.0-50.0) 06/11/17: Monocytes % 6.0 % (2.0-10.0) 06/11/17: Eosinophils % 1.5 % (0.0-5.0) 06/11/17: Basophils % 1.5 % (0.0-2.0) 06/11/17: PT 11.6 SECONDS (9.5-11.5) H 06/11/17 20: INR 1.11 (0.5-1.4) 06/11/17 20:25 Sodium 133 mEq/L (136-145) L 06/11/17 20: Potassium 3.8 mEq/L (3.5-5.1) 06/11/17 20: Chloride 98 mEq/L (98-107) 06/11/17 20:25 Carbon Dioxide 21.9 mEq/L (21.0-31.0) 06/11/17 20:25 Anion Gap 16.9 (7.0-16.0) H 06/11/17 20:25 BUN 17 mg/dL (7-25) 06/11/17 20:25 Creatinine 0.7 mg/dL (0.6-1.2) 06/11/17 20:25 Est GFR ( Amer) > 60.0 ml/min (>90) 06/11/17 20:25 Est GFR (Non-Af Amer) > 60.0 ml/min 06/11/17 20:25 BUN/Creatinine Ratio 24.3 06/11/17 20:25 Glucose 69 mg/dL (70-105) L 06/11/17 20:25 Calcium 9.9 mg/dL (8.6-10.3) 06/11/17 20:25 Iron 84 ug/dL (27-159) 06/11/17 20:25 TIBC 276 ug/dL (250-450) 06/11/17 20:25 Iron Saturation 30 % (15-55) 06/11/17 20:25 Unsaturated IBC 192 ug/dL (131-425) 06/11/17 20:25 Total Bilirubin 0.5 mg/dL (0.3-1.0) 06/11/17 20:25 AST 16 U/L (13-39) 06/11/17 20:25 ALT 11 U/L (7-52) 06/11/17 20:25 Alkaline Phosphatase 86 U/L (34-104) 06/11/17 20:25 Troponin I < 0.01 ng/mL (0.01-0.05) L 06/11/17 20:25 Total Protein 7.8 gm/dL (6.0-8.3) 06/11/17 20:25 Albumin 4.2 gm/dL (3.7-5.3) 06/11/17 20:25 Globulin 3.6 gm/dL 06/11/17 20:25 Albumin/Globulin Ratio 1.2 (1.0-1.8) 06/11/17 20:25 TSH 1.45 uIU/ml (0.34-5.60) 06/11/17 20:25 - Physical Exam Vitals and I&O: Vital Signs Temp 97.0 F 06/22/17 07:00 Pulse 88 06/22/17 07:00 Resp 20 06/22/17 07:00 BP 114/75 06/22/17 07:00 Pulse Ox 97 06/21/17 20:42 Intake & Output 06/21/17 06/22/17 06/22/17 18:59 06:59 18:59 Intake Total 1600 240 Balance 1600 240 Intake: Oral 1600 240 Other: # Voids 4 1 # Bowel Movements 0 Active Medications: Current Medications Acetaminophen (Tylenol) 650 mg PO Q4H PRN PRN Reason: Pain Or Fever above 101 Stop: 08/11/17 11:25 Al Hydrox/Mg Hydrox/Simethicone (Maalox) 30 ml PO Q4HR PRN PRN Reason: GI DISTRESS Stop: 08/11/17 11:10 Benztropine Mesylate (Cogentin) 1 mg PO HS CESIA Stop: 08/17/17 20:59 Last Admin: 06/21/17 20:31 Dose: Not Given Haloperidol (Haldol) 5 mg PO BID CESIA PRN Reason: Protocol Stop: 08/18/17 16:59 Last Admin: 06/22/17 09:51 Dose: Not Given Lorazepam (Ativan) 0.5 mg PO Q4HR PRN; Protocol PRN Reason: Agitation Stop: 07/12/17 11:10 Magnesium Hydroxide (Milk Of Magnesia) 30 ml PO HS PRN PRN Reason: Constipation Multivitamins/Vitamin C (Theragran) 1 tab PO DAILY CESIA Stop: 08/12/17 08:59 Last Admin: 06/22/17 09:51 Dose: 1 tab Olanzapine (Zyprexa) 10 mg PO HS CESIA PRN Reason: Protocol Stop: 08/11/17 20:59 Last Admin: 06/21/17 20:31 Dose: Not Given Zolpidem Tartrate (Ambien) 5 mg PO HSMR1 PRN PRN Reason: Insomnia Stop: 08/11/17 11:10 General: demented HEENT: NC/AT, PERRLA Neck: Supple, No JVD, No LAD, deformity Lungs: CTAB Cardiovascular: RRR, Normal S1, Normal S2, without murmur Abdomen: soft, non-tender, non-distended, positive bowel sound Extremities: excoriation Internal Medicine Assmt/Plan - Assessment Assessment: Hyponatremia. schizoaffective disorder agitation. . - Plan Plan: We will correct electrolyte abnormalities. We will continue to monitor the patient closely. continue current plan of care Nutritional Asmnt/Malnutr-PDOC - Dietary Evaluation Malnutrition Findings (Please click <Entered> for more info): Nutritional Asmnt/Malnutrition Start: 06/14/17 17: 15 Text: Status: Complete Freq: Document 06/14/17 17:16 HENG (Rec: 06/14/17 17:18 HEN [email or web address]) Nutritional Asmnt/Malnutrition Patient General Information Nutritional Screening Moderate Risk Diagnosis schizophrenia Pertinent Medical Hx/Surgical Hx psycho disorder Subjective Information Consult received on 06/12 3: 08pm for refusal of meal/fluid . Per nurse note, pt c/p of refusal to eat x 3 days and refusing to take medications. Pt seen lying in bed at time of visit, very confused, not able to answer questions. Per EMR, PO intake 100% x 3 meals on 06/13. Current Diet Order/ Nutrition Support regular Pertinent Medications theragran Pertinent Labs 06/11 Na 133, glucose 69 Nutritional Hx/Data Height 5 ft 7 in Height (Calculated Centimeters) 170.2 Current Weight (lbs) 150 lb Weight (Calculated Kilograms) 68.0 Weight (Calculated Grams) 37111.9 Body Mass Index (BMI) 23.5 Weight Status Approriate GI Symptoms GI Symptoms None Last BM 0 Difficult in: None Skin Integrity/Comment: intact Current %PO Good (75-100%) Estimated Nutritional Goals BEE in Kcals: Using Current wt Calories/Kcals/Kg 25-30 Kcals Calculated 4719-3414 Protein: Using Current wt Protein g/k Protein Calculated 69 Fluid: ml 1700-2040ml (1ml/kcal) Nutritional Problem No current Nutrition Prob Problem N/A Malnutrition Alert Protein-Calorie Malnutrition N/A Is there a minimum of two criteria No selected? Query Text:Check all the applicable criteria. A minimum of two criteria are recommended for diagnosis of either severe or non-severe malnutrition. Intervention/Recommendation Comments 1. Continue with regular diet as ordered. 2. Monitor PO intake, wt, labs and skin integrity 3. F/U as low risk in 7 days, 4/30, PO check 06/17 Expected Outcomes/Goals Expected Outcomes/Goals 1. PO intake to meet at least 75% of nutritional needs. 2. Wt stability, skin to remain intact, labs to approach WNL.
[2017-06-22] MEDS ORDERED: Haloperidol Lactate 5 mg/mL 1mL Vial IM ONE (16:27)
[2017-06-22] MEDS: Benztropine 1 MG TAB PO SCH (21:15)
--- NOTE | 2017-06-23 03:49 | Progress Notes ---
DATE: 06/22/2017 SUBJECTIVE: Staff was spoken to. The patient is interviewed. Mood is noted to be irritable. Affect is constricted. The patient is stating that she is not going to be willing to take any medication. The patient has been very irritable, angry and has been testing the limits. No side effects to the medications are noted. The patient has been out of control and has been throwing the folks at the staff members and has to be given a dose of the Haldol yesterday, possibly patient is going to be convinced to take the medication and if she is not possibly be going to be giving the medication by injection. The patient is becoming out of control. JOB# [id number]
[2017-06-23] MEDS: Multivitamin Tab PO SCH (08:27)
--- NOTE | 2017-06-23 16:21 | Internal Medicine Prog Note ---
Internal Medicine Subjective - Subjective Service Date: 06/23/17 Patient is:: awake, verbal, interactive Patient Complaints of:: congestion Per staff patient has:: no adverse event, no episodes of fall, eating well, agitated, tolerating meds Internal Medicine Objective - Results Result Diagrams: 06/11/17 20:25 06/11/17 20: Recent Labs: Laboratory Last Values WBC 8.1 Th/cmm (4.8-10.8) 06/11/17 20: RBC 4.46 Mil/cmm (3.80-5.10) 06/11/17 20: Hgb 14.1 gm/dL (12-16) 06/11/17: Hct 41.5 % (41.0-60) 06/11/17: MCV 93.2 fl (81-100) 06/11/17 20: MCH 31.6 pg (27.0-31.0) H 06/11/17: MCHC Differential 33.9 pg (28.0-36.0) 06/11/17: RDW 13.4 % (11.5-20.0) 06/11/17: Plt Count 264 Th/cmm (150-400) 06/11/17: MPV 7.6 fl 06/11/17: Neutrophils % 55.6 % (40.0-80.0) 06/11/17: Lymphocytes % 35.4 % (20.0-50.0) 06/11/17: Monocytes % 6.0 % (2.0-10.0) 06/11/17: Eosinophils % 1.5 % (0.0-5.0) 06/11/17: Basophils % 1.5 % (0.0-2.0) 06/11/17: PT 11.6 SECONDS (9.5-11.5) H 06/11/17 20: INR 1.11 (0.5-1.4) 06/11/17 20:25 Sodium 133 mEq/L (136-145) L 06/11/17 20: Potassium 3.8 mEq/L (3.5-5.1) 06/11/17 20: Chloride 98 mEq/L (98-107) 06/11/17 20:25 Carbon Dioxide 21.9 mEq/L (21.0-31.0) 06/11/17 20:25 Anion Gap 16.9 (7.0-16.0) H 06/11/17 20:25 BUN 17 mg/dL (7-25) 06/11/17 20:25 Creatinine 0.7 mg/dL (0.6-1.2) 06/11/17 20:25 Est GFR ( Amer) > 60.0 ml/min (>90) 06/11/17 20:25 Est GFR (Non-Af Amer) > 60.0 ml/min 06/11/17 20:25 BUN/Creatinine Ratio 24.3 06/11/17 20:25 Glucose 69 mg/dL (70-105) L 06/11/17 20:25 Calcium 9.9 mg/dL (8.6-10.3) 06/11/17 20:25 Iron 84 ug/dL (27-159) 06/11/17 20:25 TIBC 276 ug/dL (250-450) 06/11/17 20:25 Iron Saturation 30 % (15-55) 06/11/17 20:25 Unsaturated IBC 192 ug/dL (131-425) 06/11/17 20:25 Total Bilirubin 0.5 mg/dL (0.3-1.0) 06/11/17 20:25 AST 16 U/L (13-39) 06/11/17 20:25 ALT 11 U/L (7-52) 06/11/17 20:25 Alkaline Phosphatase 86 U/L (34-104) 06/11/17 20:25 Troponin I < 0.01 ng/mL (0.01-0.05) L 06/11/17 20:25 Total Protein 7.8 gm/dL (6.0-8.3) 06/11/17 20:25 Albumin 4.2 gm/dL (3.7-5.3) 06/11/17 20:25 Globulin 3.6 gm/dL 06/11/17 20:25 Albumin/Globulin Ratio 1.2 (1.0-1.8) 06/11/17 20:25 TSH 1.45 uIU/ml (0.34-5.60) 06/11/17 20:25 - Physical Exam Vitals and I&O: Vital Signs Temp 97.7 F 06/23/17 15:27 Pulse 87 06/23/17 15:27 Resp 18 06/23/17 15:27 BP 127/70 06/23/17 15:27 Pulse Ox 96 06/23/17 15:27 Intake & Output 06/22/17 06/23/17 06/23/17 18:59 06:59 18:59 Intake Total 120 Balance 120 Intake: Oral 120 Other: # Voids 2 Active Medications: Current Medications Acetaminophen (Tylenol) 650 mg PO Q4H PRN PRN Reason: Pain Or Fever above 101 Stop: 08/11/17 11:25 Al Hydrox/Mg Hydrox/Simethicone (Maalox) 30 ml PO Q4HR PRN PRN Reason: GI DISTRESS Stop: 08/11/17 11:10 Benztropine Mesylate (Cogentin) 1 mg PO HS CESIA Stop: 08/17/17 20:59 Last Admin: 06/22/17 21:15 Dose: Not Given Haloperidol (Haldol) 5 mg PO BID CESIA PRN Reason: Protocol Stop: 08/18/17 16:59 Last Admin: 06/23/17 08:26 Dose: 5 mg Lorazepam (Ativan) 0.5 mg PO Q4HR PRN; Protocol PRN Reason: Agitation Stop: 07/12/17 11:10 Magnesium Hydroxide (Milk Of Magnesia) 30 ml PO HS PRN PRN Reason: Constipation Multivitamins/Vitamin C (Theragran) 1 tab PO DAILY CESIA Stop: 08/12/17 08:59 Last Admin: 06/23/17 08:27 Dose: 1 tab Olanzapine (Zyprexa) 10 mg PO HS CESIA PRN Reason: Protocol Stop: 08/11/17 20:59 Last Admin: 06/22/17 21:16 Dose: Not Given Zolpidem Tartrate (Ambien) 5 mg PO HSMR1 PRN PRN Reason: Insomnia Stop: 08/11/17 11:10 General: demented HEENT: NC/AT, PERRLA Neck: Supple, No JVD, No LAD, deformity Lungs: CTAB Cardiovascular: RRR, Normal S1, Normal S2, without murmur Abdomen: soft, non-tender, non-distended, positive bowel sound Extremities: excoriation Internal Medicine Assmt/Plan - Assessment Assessment: Hyponatremia. schizoaffective disorder agitation. . - Plan Plan: We will correct electrolyte abnormalities. We will continue to monitor the patient closely. continue current plan of care Nutritional Asmnt/Malnutr-PDOC - Dietary Evaluation Malnutrition Findings (Please click <Entered> for more info): Nutritional Asmnt/Malnutrition Start: 06/14/17 17: 15 Text: Status: Complete Freq: Document 06/14/17 17:16 HEN (Rec: 06/14/17 17:18 HEN [email or web address]) Nutritional Asmnt/Malnutrition Patient General Information Nutritional Screening Moderate Risk Diagnosis schizophrenia Pertinent Medical Hx/Surgical Hx psycho disorder Subjective Information Consult received on 06/12 3: 08pm for refusal of meal/fluid . Per nurse note, pt c/p of refusal to eat x 3 days and refusing to take medications. Pt seen lying in bed at time of visit, very confused, not able to answer questions. Per EMR, PO intake 100% x 3 meals on 06/13. Current Diet Order/ Nutrition Support regular Pertinent Medications theragran Pertinent Labs 06/11 Na 133, glucose 69 Nutritional Hx/Data Height 5 ft 7 in Height (Calculated Centimeters) 170.2 Current Weight (lbs) 150 lb Weight (Calculated Kilograms) 68.0 Weight (Calculated Grams) 88228.9 Body Mass Index (BMI) 23.5 Weight Status Approriate GI Symptoms GI Symptoms None Last BM 0 Difficult in: None Skin Integrity/Comment: intact Current %PO Good (75-100%) Estimated Nutritional Goals BEE in Kcals: Using Current wt Calories/Kcals/Kg 25-30 Kcals Calculated 1792-4309 Protein: Using Current wt Protein g/k Protein Calculated 69 Fluid: ml 1700-2040ml (1ml/kcal) Nutritional Problem No current Nutrition Prob Problem N/A Malnutrition Alert Protein-Calorie Malnutrition N/A Is there a minimum of two criteria No selected? Query Text:Check all the applicable criteria. A minimum of two criteria are recommended for diagnosis of either severe or non-severe malnutrition. Intervention/Recommendation Comments 1. Continue with regular diet as ordered. 2. Monitor PO intake, wt, labs and skin integrity 3. F/U as low risk in 7 days, 06/21, PO check 06/17 Expected Outcomes/Goals Expected Outcomes/Goals 1. PO intake to meet at least 75% of nutritional needs. 2. Wt stability, skin to remain intact, labs to approach WNL.
[2017-06-23] MEDS: Benztropine 1 MG TAB PO SCH ×2 (20:32→20:44)
--- NOTE | 2017-06-24 01:16 | Progress Notes ---
DATE: 06/23/2017 SUBJECTIVE: Staff was spoken to. The patient is interviewed. Mood is noted to be irritable. Affect is constricted. The patient is stating that she does not like the Zyprexa. She wants only the Seroquel and hence the Zyprexa has been discontinued and the patient is placed on the Seroquel 150 mg at bedtime. The patient is going to be closely monitored. I encouraged to verbalize the concerns rather than to act out. The patient has been still testing the limits at this time. ASSESSMENT: The patient is still psychotic. PLAN: To continue the patient with the supportive therapy. The patient is explaining that she is Dr. Dubois, I should not call her Dr. Dubois rather than [place]. JOB# [id number]
[2017-06-24] MEDS: Multivitamin Tab PO SCH (09:10)
--- NOTE | 2017-06-24 15:39 | Internal Medicine Prog Note ---
Internal Medicine Subjective - Subjective Service Date: 06/24/17 Patient is:: awake, verbal, interactive Patient Complaints of:: congestion Per staff patient has:: no adverse event, no episodes of fall, eating well, agitated, tolerating meds Internal Medicine Objective - Results Result Diagrams: 06/11/17 20:25 06/11/17 20: Recent Labs: Laboratory Last Values WBC 8.1 Th/cmm (4.8-10.8) 06/11/17 20: RBC 4.46 Mil/cmm (3.80-5.10) 06/11/17 20: Hgb 14.1 gm/dL (12-16) 06/11/17: Hct 41.5 % (41.0-60) 06/11/17: MCV 93.2 fl (81-100) 06/11/17 20: MCH 31.6 pg (27.0-31.0) H 06/11/17: MCHC Differential 33.9 pg (28.0-36.0) 06/11/17: RDW 13.4 % (11.5-20.0) 06/11/17: Plt Count 264 Th/cmm (150-400) 06/11/17: MPV 7.6 fl 06/11/17: Neutrophils % 55.6 % (40.0-80.0) 06/11/17: Lymphocytes % 35.4 % (20.0-50.0) 06/11/17: Monocytes % 6.0 % (2.0-10.0) 06/11/17: Eosinophils % 1.5 % (0.0-5.0) 06/11/17: Basophils % 1.5 % (0.0-2.0) 06/11/17: PT 11.6 SECONDS (9.5-11.5) H 06/11/17 20: INR 1.11 (0.5-1.4) 06/11/17 20:25 Sodium 133 mEq/L (136-145) L 06/11/17 20: Potassium 3.8 mEq/L (3.5-5.1) 06/11/17 20: Chloride 98 mEq/L (98-107) 06/11/17 20:25 Carbon Dioxide 21.9 mEq/L (21.0-31.0) 06/11/17 20:25 Anion Gap 16.9 (7.0-16.0) H 06/11/17 20:25 BUN 17 mg/dL (7-25) 06/11/17 20:25 Creatinine 0.7 mg/dL (0.6-1.2) 06/11/17 20:25 Est GFR ( Amer) > 60.0 ml/min (>90) 06/11/17 20:25 Est GFR (Non-Af Amer) > 60.0 ml/min 06/11/17 20:25 BUN/Creatinine Ratio 24.3 06/11/17 20:25 Glucose 69 mg/dL (70-105) L 06/11/17 20:25 Calcium 9.9 mg/dL (8.6-10.3) 06/11/17 20:25 Iron 84 ug/dL (27-159) 06/11/17 20:25 TIBC 276 ug/dL (250-450) 06/11/17 20:25 Iron Saturation 30 % (15-55) 06/11/17 20:25 Unsaturated IBC 192 ug/dL (131-425) 06/11/17 20:25 Total Bilirubin 0.5 mg/dL (0.3-1.0) 06/11/17 20:25 AST 16 U/L (13-39) 06/11/17 20:25 ALT 11 U/L (7-52) 06/11/17 20:25 Alkaline Phosphatase 86 U/L (34-104) 06/11/17 20:25 Troponin I < 0.01 ng/mL (0.01-0.05) L 06/11/17 20:25 Total Protein 7.8 gm/dL (6.0-8.3) 06/11/17 20:25 Albumin 4.2 gm/dL (3.7-5.3) 06/11/17 20:25 Globulin 3.6 gm/dL 06/11/17 20:25 Albumin/Globulin Ratio 1.2 (1.0-1.8) 06/11/17 20:25 TSH 1.45 uIU/ml (0.34-5.60) 06/11/17 20:25 - Physical Exam Vitals and I&O: Vital Signs Temp 98.4 F 06/24/17 15:29 Pulse 95 06/24/17 15:29 Resp 20 06/24/17 15:29 BP 131/70 06/24/17 15:29 Pulse Ox 96 06/24/17 15:29 Intake & Output 06/23/17 06/24/17 06/24/17 18:59 06:59 18:59 Intake Total 1500 120 Balance 1500 120 Intake: Oral 1500 120 Other: # Voids 3 3 # Bowel Movements 1 Active Medications: Current Medications Acetaminophen (Tylenol) 650 mg PO Q4H PRN PRN Reason: Pain Or Fever above 101 Stop: 08/11/17 11:25 Al Hydrox/Mg Hydrox/Simethicone (Maalox) 30 ml PO Q4HR PRN PRN Reason: GI DISTRESS Stop: 08/11/17 11:10 Benztropine Mesylate (Cogentin) 1 mg PO HS CESIA Stop: 08/17/17 20:59 Last Admin: 06/23/17 20:44 Dose: 1 mg Haloperidol (Haldol) 5 mg PO BID CESIA PRN Reason: Protocol Stop: 08/18/17 16:59 Last Admin: 06/24/17 09:10 Dose: 5 mg Lorazepam (Ativan) 0.5 mg PO Q4HR PRN; Protocol PRN Reason: Agitation Stop: 07/12/17 11:10 Magnesium Hydroxide (Milk Of Magnesia) 30 ml PO HS PRN PRN Reason: Constipation Multivitamins/Vitamin C (Theragran) 1 tab PO DAILY CESIA Stop: 08/12/17 08:59 Last Admin: 06/24/17 09:10 Dose: 1 tab Quetiapine Fumarate (Seroquel) 50 mg PO HS CESIA PRN Reason: Protocol Stop: 08/22/17 22:59 Zolpidem Tartrate (Ambien) 5 mg PO HSMR1 PRN PRN Reason: Insomnia Stop: 08/11/17 11:10 General: demented HEENT: NC/AT, PERRLA Neck: Supple, No JVD, No LAD, deformity Lungs: CTAB Cardiovascular: RRR, Normal S1, Normal S2, without murmur Abdomen: soft, non-tender, non-distended, positive bowel sound Extremities: excoriation Internal Medicine Assmt/Plan - Assessment Assessment: Hyponatremia. schizoaffective disorder agitation. . - Plan Plan: We will correct electrolyte abnormalities. We will continue to monitor the patient closely. continue current plan of care Nutritional Asmnt/Malnutr-PDOC - Dietary Evaluation Malnutrition Findings (Please click <Entered> for more info): Nutritional Asmnt/Malnutrition Start: 06/14/17 17: 15 Text: Status: Complete Freq: Document 06/14/17 17:16 LCTIFFANIE (Rec: 06/14/17 17:18 LCHEN [email or web address]) Nutritional Asmnt/Malnutrition Patient General Information Nutritional Screening Moderate Risk Diagnosis schizophrenia Pertinent Medical Hx/Surgical Hx psycho disorder Subjective Information Consult received on 06/12 3: 08pm for refusal of meal/fluid . Per nurse note, pt c/p of refusal to eat x 3 days and refusing to take medications. Pt seen lying in bed at time of visit, very confused, not able to answer questions. Per EMR, PO intake 100% x 3 meals on 06/13. Current Diet Order/ Nutrition Support regular Pertinent Medications theragran Pertinent Labs 06/11 Na 133, glucose 69 Nutritional Hx/Data Height 5 ft 7 in Height (Calculated Centimeters) 170.2 Current Weight (lbs) 150 lb Weight (Calculated Kilograms) 68.0 Weight (Calculated Grams) 95971.9 Body Mass Index (BMI) 23.5 Weight Status Approriate GI Symptoms GI Symptoms None Last BM 0 Difficult in: None Skin Integrity/Comment: intact Current %PO Good (75-100%) Estimated Nutritional Goals BEE in Kcals: Using Current wt Calories/Kcals/Kg 25-30 Kcals Calculated 1348-7322 Protein: Using Current wt Protein g/k Protein Calculated 69 Fluid: ml 1700-2040ml (1ml/kcal) Nutritional Problem No current Nutrition Prob Problem N/A Malnutrition Alert Protein-Calorie Malnutrition N/A Is there a minimum of two criteria No selected? Query Text:Check all the applicable criteria. A minimum of two criteria are recommended for diagnosis of either severe or non-severe malnutrition. Intervention/Recommendation Comments 1. Continue with regular diet as ordered. 2. Monitor PO intake, wt, labs and skin integrity 3. F/U as low risk in 7 days, 06/21, PO check 06/17 Expected Outcomes/Goals Expected Outcomes/Goals 1. PO intake to meet at least 75% of nutritional needs. 2. Wt stability, skin to remain intact, labs to approach WNL.
[2017-06-24] MEDS: Benztropine 1 MG TAB PO SCH (21:46)
--- NOTE | 2017-06-25 03:07 | Progress Notes ---
DATE: 06/24/2017 SUBJECTIVE: Staff was spoken to. The patient is interviewed. Mood is noted to be less irritable. Affect is appropriate. The patient's insight and judgment at this time are noted to be improving. The patient has been complaining with the Seroquel. No side effects to the medications are noted. ASSESSMENT: The patient's psychosis is resolving. PLAN: To continue the patient with the supportive therapy and followup. JOB# [id number]
[2017-06-25] MEDS: Multivitamin Tab PO SCH (10:33)
--- NOTE | 2017-06-25 15:00 | Internal Medicine Prog Note ---
Internal Medicine Subjective - Subjective Service Date: 06/25/17 Patient is:: awake, verbal, interactive Patient Complaints of:: congestion Per staff patient has:: no adverse event, no episodes of fall, eating well, agitated, tolerating meds Internal Medicine Objective - Results Result Diagrams: 06/11/17 20:25 06/11/17 20: Recent Labs: Laboratory Last Values WBC 8.1 Th/cmm (4.8-10.8) 06/11/17 20: RBC 4.46 Mil/cmm (3.80-5.10) 06/11/17 20: Hgb 14.1 gm/dL (12-16) 06/11/17: Hct 41.5 % (41.0-60) 06/11/17: MCV 93.2 fl (81-100) 06/11/17 20: MCH 31.6 pg (27.0-31.0) H 06/11/17: MCHC Differential 33.9 pg (28.0-36.0) 06/11/17: RDW 13.4 % (11.5-20.0) 06/11/17: Plt Count 264 Th/cmm (150-400) 06/11/17: MPV 7.6 fl 06/11/17: Neutrophils % 55.6 % (40.0-80.0) 06/11/17: Lymphocytes % 35.4 % (20.0-50.0) 06/11/17: Monocytes % 6.0 % (2.0-10.0) 06/11/17: Eosinophils % 1.5 % (0.0-5.0) 06/11/17: Basophils % 1.5 % (0.0-2.0) 06/11/17: PT 11.6 SECONDS (9.5-11.5) H 06/11/17 20: INR 1.11 (0.5-1.4) 06/11/17 20:25 Sodium 133 mEq/L (136-145) L 06/11/17 20: Potassium 3.8 mEq/L (3.5-5.1) 06/11/17 20: Chloride 98 mEq/L (98-107) 06/11/17 20:25 Carbon Dioxide 21.9 mEq/L (21.0-31.0) 06/11/17 20:25 Anion Gap 16.9 (7.0-16.0) H 06/11/17 20:25 BUN 17 mg/dL (7-25) 06/11/17 20:25 Creatinine 0.7 mg/dL (0.6-1.2) 06/11/17 20:25 Est GFR ( Amer) > 60.0 ml/min (>90) 06/11/17 20:25 Est GFR (Non-Af Amer) > 60.0 ml/min 06/11/17 20:25 BUN/Creatinine Ratio 24.3 06/11/17 20:25 Glucose 69 mg/dL (70-105) L 06/11/17 20:25 Calcium 9.9 mg/dL (8.6-10.3) 06/11/17 20:25 Iron 84 ug/dL (27-159) 06/11/17 20:25 TIBC 276 ug/dL (250-450) 06/11/17 20:25 Iron Saturation 30 % (15-55) 06/11/17 20:25 Unsaturated IBC 192 ug/dL (131-425) 06/11/17 20:25 Total Bilirubin 0.5 mg/dL (0.3-1.0) 06/11/17 20:25 AST 16 U/L (13-39) 06/11/17 20:25 ALT 11 U/L (7-52) 06/11/17 20:25 Alkaline Phosphatase 86 U/L (34-104) 06/11/17 20:25 Troponin I < 0.01 ng/mL (0.01-0.05) L 06/11/17 20:25 Total Protein 7.8 gm/dL (6.0-8.3) 06/11/17 20:25 Albumin 4.2 gm/dL (3.7-5.3) 06/11/17 20:25 Globulin 3.6 gm/dL 06/11/17 20:25 Albumin/Globulin Ratio 1.2 (1.0-1.8) 06/11/17 20:25 TSH 1.45 uIU/ml (0.34-5.60) 06/11/17 20:25 - Physical Exam Vitals and I&O: Vital Signs Temp 97.3 F 06/25/17 07:44 Pulse 76 06/25/17 07:44 Resp 20 06/25/17 07:44 BP 107/65 06/25/17 07:44 Pulse Ox 98 06/25/17 07:44 Intake & Output 06/24/17 06/25/17 06/25/17 18:59 06:59 18:59 Intake Total 1500 Balance 1500 Intake: Oral 1500 Other: # Voids 3 # Bowel Movements 1 Active Medications: Current Medications Acetaminophen (Tylenol) 650 mg PO Q4H PRN PRN Reason: Pain Or Fever above 101 Stop: 08/11/17 11:25 Al Hydrox/Mg Hydrox/Simethicone (Maalox) 30 ml PO Q4HR PRN PRN Reason: GI DISTRESS Stop: 08/11/17 11:10 Benztropine Mesylate (Cogentin) 1 mg PO HS CESIA Stop: 08/17/17 20:59 Last Admin: 06/24/17 21:46 Dose: 1 mg Haloperidol (Haldol) 5 mg PO BID CESIA PRN Reason: Protocol Stop: 08/18/17 16:59 Last Admin: 06/25/17 10:33 Dose: 5 mg Lorazepam (Ativan) 0.5 mg PO Q4HR PRN; Protocol PRN Reason: Agitation Stop: 07/12/17 11:10 Magnesium Hydroxide (Milk Of Magnesia) 30 ml PO HS PRN PRN Reason: Constipation Multivitamins/Vitamin C (Theragran) 1 tab PO DAILY CESIA Stop: 08/12/17 08:59 Last Admin: 06/25/17 10:33 Dose: 1 tab Quetiapine Fumarate (Seroquel) 50 mg PO HS CESIA PRN Reason: Protocol Stop: 08/22/17 22:59 Last Admin: 06/24/17 21:46 Dose: 50 mg Temazepam (Restoril) 15 mg PO HS PRN; Protocol PRN Reason: Insomnia Stop: 08/23/17 20:53 Last Admin: 06/24/17 21:46 Dose: 15 mg General: demented HEENT: NC/AT, PERRLA Neck: Supple, No JVD, No LAD, deformity Lungs: CTAB Cardiovascular: RRR, Normal S1, Normal S2, without murmur Abdomen: soft, non-tender, non-distended, positive bowel sound Extremities: excoriation Internal Medicine Assmt/Plan - Assessment Assessment: Hyponatremia. schizoaffective disorder agitation. . - Plan Plan: We will correct electrolyte abnormalities. We will continue to monitor the patient closely. continue current plan of care Nutritional Asmnt/Malnutr-PDOC - Dietary Evaluation Malnutrition Findings (Please click <Entered> for more info): Nutritional Asmnt/Malnutrition Start: 06/14/17 17: 15 Text: Status: Complete Freq: Document 06/14/17 17:16 LCHENG (Rec: 06/14/17 17:18 LCHENG [email or web address]) Nutritional Asmnt/Malnutrition Patient General Information Nutritional Screening Moderate Risk Diagnosis schizophrenia Pertinent Medical Hx/Surgical Hx psycho disorder Subjective Information Consult received on 06/12 3: 08pm for refusal of meal/fluid . Per nurse note, pt c/p of refusal to eat x 3 days and refusing to take medications. Pt seen lying in bed at time of visit, very confused, not able to answer questions. Per EMR, PO intake 100% x 3 meals on 06/13. Current Diet Order/ Nutrition Support regular Pertinent Medications theragran Pertinent Labs 06/11 Na 133, glucose 69 Nutritional Hx/Data Height 5 ft 7 in Height (Calculated Centimeters) 170.2 Current Weight (lbs) 150 lb Weight (Calculated Kilograms) 68.0 Weight (Calculated Grams) 22805.9 Body Mass Index (BMI) 23.5 Weight Status Approriate GI Symptoms GI Symptoms None Last BM 0 Difficult in: None Skin Integrity/Comment: intact Current %PO Good (75-100%) Estimated Nutritional Goals BEE in Kcals: Using Current wt Calories/Kcals/Kg 25-30 Kcals Calculated 8428-8828 Protein: Using Current wt Protein g/k Protein Calculated 69 Fluid: ml 1700-2040ml (1ml/kcal) Nutritional Problem No current Nutrition Prob Problem N/A Malnutrition Alert Protein-Calorie Malnutrition N/A Is there a minimum of two criteria No selected? Query Text:Check all the applicable criteria. A minimum of two criteria are recommended for diagnosis of either severe or non-severe malnutrition. Intervention/Recommendation Comments 1. Continue with regular diet as ordered. 2. Monitor PO intake, wt, labs and skin integrity 3. F/U as low risk in 7 days, 06/21, PO check 06/17 Expected Outcomes/Goals Expected Outcomes/Goals 1. PO intake to meet at least 75% of nutritional needs. 2. Wt stability, skin to remain intact, labs to approach WNL.
[2017-06-25] MEDS: Benztropine 1 MG TAB PO SCH (21:04)
--- NOTE | 2017-06-26 06:10 | Progress Notes ---
DATE: 06/25/2017 SUBJECTIVE: Staff was spoken to. The patient is interviewed. Mood is noted to be irritable. Affect is constricted. She continues to be very paranoid. The patient has been stating the medication is making her to be too sleepy. No side effects to the medications are noted at this time. PLAN: The patient has been placed on haloperidol 5 mg b.i.d. and Seroquel 50 mg at bedtime. Since the patient has been willing to comply with the medication, it is decided to give haloperidol. I encouraged the patient to comply with the treatment. Follow the patient with supportive therapy. JOB# [id number]
[2017-06-26] MEDS: Multivitamin Tab PO SCH (09:03)
--- NOTE | 2017-06-26 13:57 | Internal Medicine Prog Note ---
Internal Medicine Subjective - Subjective Service Date: 06/26/17 Patient is:: awake, verbal, interactive Patient Complaints of:: congestion Per staff patient has:: no adverse event, no episodes of fall, eating well, agitated, tolerating meds Internal Medicine Objective - Results Result Diagrams: 06/11/17 20:25 06/11/17 20: Recent Labs: Laboratory Last Values WBC 8.1 Th/cmm (4.8-10.8) 06/11/17 20: RBC 4.46 Mil/cmm (3.80-5.10) 06/11/17 20: Hgb 14.1 gm/dL (12-16) 06/11/17: Hct 41.5 % (41.0-60) 06/11/17: MCV 93.2 fl (81-100) 06/11/17 20: MCH 31.6 pg (27.0-31.0) H 06/11/17: MCHC Differential 33.9 pg (28.0-36.0) 06/11/17: RDW 13.4 % (11.5-20.0) 06/11/17: Plt Count 264 Th/cmm (150-400) 06/11/17: MPV 7.6 fl 06/11/17: Neutrophils % 55.6 % (40.0-80.0) 06/11/17: Lymphocytes % 35.4 % (20.0-50.0) 06/11/17: Monocytes % 6.0 % (2.0-10.0) 06/11/17: Eosinophils % 1.5 % (0.0-5.0) 06/11/17: Basophils % 1.5 % (0.0-2.0) 06/11/17: PT 11.6 SECONDS (9.5-11.5) H 06/11/17 20: INR 1.11 (0.5-1.4) 06/11/17 20:25 Sodium 133 mEq/L (136-145) L 06/11/17 20: Potassium 3.8 mEq/L (3.5-5.1) 06/11/17 20: Chloride 98 mEq/L (98-107) 06/11/17 20:25 Carbon Dioxide 21.9 mEq/L (21.0-31.0) 06/11/17 20:25 Anion Gap 16.9 (7.0-16.0) H 06/11/17 20:25 BUN 17 mg/dL (7-25) 06/11/17 20:25 Creatinine 0.7 mg/dL (0.6-1.2) 06/11/17 20:25 Est GFR ( Amer) > 60.0 ml/min (>90) 06/11/17 20:25 Est GFR (Non-Af Amer) > 60.0 ml/min 06/11/17 20:25 BUN/Creatinine Ratio 24.3 06/11/17 20:25 Glucose 69 mg/dL (70-105) L 06/11/17 20:25 Calcium 9.9 mg/dL (8.6-10.3) 06/11/17 20:25 Iron 84 ug/dL (27-159) 06/11/17 20:25 TIBC 276 ug/dL (250-450) 06/11/17 20:25 Iron Saturation 30 % (15-55) 06/11/17 20:25 Unsaturated IBC 192 ug/dL (131-425) 06/11/17 20:25 Total Bilirubin 0.5 mg/dL (0.3-1.0) 06/11/17 20:25 AST 16 U/L (13-39) 06/11/17 20:25 ALT 11 U/L (7-52) 06/11/17 20:25 Alkaline Phosphatase 86 U/L (34-104) 06/11/17 20:25 Troponin I < 0.01 ng/mL (0.01-0.05) L 06/11/17 20:25 Total Protein 7.8 gm/dL (6.0-8.3) 06/11/17 20:25 Albumin 4.2 gm/dL (3.7-5.3) 06/11/17 20:25 Globulin 3.6 gm/dL 06/11/17 20:25 Albumin/Globulin Ratio 1.2 (1.0-1.8) 06/11/17 20:25 TSH 1.45 uIU/ml (0.34-5.60) 06/11/17 20:25 - Physical Exam Vitals and I&O: Vital Signs Temp 98.1 F 06/26/17 06:33 Pulse 85 06/26/17 10:00 Resp 19 06/26/17 10:00 BP 145/85 06/26/17 06:33 Pulse Ox 97 06/26/17 06:33 Intake & Output 06/25/17 06/26/17 06/26/17 18:59 06:59 18:59 Intake Total 1200 240 Balance 1200 240 Intake: Oral 1200 240 Other: # Voids 3 1 # Bowel Movements 1 Stool Characteristics Formed Brown Active Medications: Current Medications Acetaminophen (Tylenol) 650 mg PO Q4H PRN PRN Reason: Pain Or Fever above 101 Stop: 08/11/17 11:25 Al Hydrox/Mg Hydrox/Simethicone (Maalox) 30 ml PO Q4HR PRN PRN Reason: GI DISTRESS Stop: 08/11/17 11:10 Benztropine Mesylate (Cogentin) 1 mg PO HS CESIA Stop: 08/17/17 20:59 Last Admin: 06/25/17 21:04 Dose: 1 mg Lorazepam (Ativan) 0.5 mg PO Q4HR PRN; Protocol PRN Reason: Agitation Stop: 07/12/17 11:10 Last Admin: 06/26/17 00:58 Dose: 0.5 mg Magnesium Hydroxide (Milk Of Magnesia) 30 ml PO HS PRN PRN Reason: Constipation Multivitamins/Vitamin C (Theragran) 1 tab PO DAILY CESIA Stop: 08/12/17 08:59 Last Admin: 06/26/17 09:03 Dose: 1 tab Quetiapine Fumarate (Seroquel) 50 mg PO HS CESIA PRN Reason: Protocol Stop: 08/22/17 22:59 Last Admin: 06/25/17 21:15 Dose: 50 mg Temazepam (Restoril) 15 mg PO HS PRN; Protocol PRN Reason: Insomnia Stop: 08/23/17 20:53 Last Admin: 06/25/17 21:04 Dose: 15 mg General: demented HEENT: NC/AT, PERRLA Neck: Supple, No JVD, No LAD, deformity Lungs: CTAB Cardiovascular: RRR, Normal S1, Normal S2, without murmur Abdomen: soft, non-tender, non-distended, positive bowel sound Extremities: excoriation Internal Medicine Assmt/Plan - Assessment Assessment: Hyponatremia. schizoaffective disorder agitation. . - Plan Plan: We will correct electrolyte abnormalities. We will continue to monitor the patient closely. continue current plan of care Nutritional Asmnt/Malnutr-PDOC - Dietary Evaluation Malnutrition Findings (Please click <Entered> for more info): Nutritional Asmnt/Malnutrition Start: 06/14/17 17: 15 Text: Status: Complete Freq: Document 06/14/17 17:16 HEN (Rec: 06/14/17 17:18 HEN [email or web address]) Nutritional Asmnt/Malnutrition Patient General Information Nutritional Screening Moderate Risk Diagnosis schizophrenia Pertinent Medical Hx/Surgical Hx psycho disorder Subjective Information Consult received on 06/12 3: 08pm for refusal of meal/fluid . Per nurse note, pt c/p of refusal to eat x 3 days and refusing to take medications. Pt seen lying in bed at time of visit, very confused, not able to answer questions. Per EMR, PO intake 100% x 3 meals on 06/13. Current Diet Order/ Nutrition Support regular Pertinent Medications theragran Pertinent Labs 06/11 Na 133, glucose 69 Nutritional Hx/Data Height 5 ft 7 in Height (Calculated Centimeters) 170.2 Current Weight (lbs) 150 lb Weight (Calculated Kilograms) 68.0 Weight (Calculated Grams) 01859.9 Body Mass Index (BMI) 23.5 Weight Status Approriate GI Symptoms GI Symptoms None Last BM 0 Difficult in: None Skin Integrity/Comment: intact Current %PO Good (75-100%) Estimated Nutritional Goals BEE in Kcals: Using Current wt Calories/Kcals/Kg 25-30 Kcals Calculated 3388-3237 Protein: Using Current wt Protein g/k Protein Calculated 69 Fluid: ml 1700-2040ml (1ml/kcal) Nutritional Problem No current Nutrition Prob Problem N/A Malnutrition Alert Protein-Calorie Malnutrition N/A Is there a minimum of two criteria No selected? Query Text:Check all the applicable criteria. A minimum of two criteria are recommended for diagnosis of either severe or non-severe malnutrition. Intervention/Recommendation Comments 1. Continue with regular diet as ordered. 2. Monitor PO intake, wt, labs and skin integrity 3. F/U as low risk in 7 days, 06/21, PO check 4/26 Expected Outcomes/Goals Expected Outcomes/Goals 1. PO intake to meet at least 75% of nutritional needs. 2. Wt stability, skin to remain intact, labs to approach WNL.
[2017-06-26] MEDS: Benztropine 1 MG TAB PO SCH (20:43)
--- NOTE | 2017-06-26 22:23 | Progress Notes ---
DATE: 06/25/2017 SUBJECTIVE: Staff was spoken to. The patient is interviewed. Mood is noted to be irritable. Affect is constricted. Continues to be paranoid, but denies any command hallucinations. Insight and judgment are noted to be still impaired. The patient does not want to be called as Chica and wants to be called as Dr. Dubois. ASSESSMENT: The patient is still delusional. PLAN: To continue the patient with the current medications and follow. JOB# [id number]
[2017-06-27] MEDS: Multivitamin Tab PO SCH (09:27)
--- NOTE | 2017-06-27 15:39 | Internal Medicine Prog Note ---
Internal Medicine Subjective - Subjective Service Date: 06/27/17 Patient is:: awake, verbal, interactive Patient Complaints of:: congestion Per staff patient has:: no adverse event, no episodes of fall, eating well, agitated, tolerating meds Internal Medicine Objective - Results Result Diagrams: 06/11/17 20:25 06/11/17 20: Recent Labs: Laboratory Last Values WBC 8.1 Th/cmm (4.8-10.8) 06/11/17 20: RBC 4.46 Mil/cmm (3.80-5.10) 06/11/17 20: Hgb 14.1 gm/dL (12-16) 06/11/17: Hct 41.5 % (41.0-60) 06/11/17: MCV 93.2 fl (81-100) 06/11/17 20: MCH 31.6 pg (27.0-31.0) H 06/11/17: MCHC Differential 33.9 pg (28.0-36.0) 06/11/17: RDW 13.4 % (11.5-20.0) 06/11/17: Plt Count 264 Th/cmm (150-400) 06/11/17: MPV 7.6 fl 06/11/17: Neutrophils % 55.6 % (40.0-80.0) 06/11/17: Lymphocytes % 35.4 % (20.0-50.0) 06/11/17: Monocytes % 6.0 % (2.0-10.0) 06/11/17: Eosinophils % 1.5 % (0.0-5.0) 06/11/17: Basophils % 1.5 % (0.0-2.0) 06/11/17: PT 11.6 SECONDS (9.5-11.5) H 06/11/17 20: INR 1.11 (0.5-1.4) 06/11/17 20:25 Sodium 133 mEq/L (136-145) L 06/11/17 20: Potassium 3.8 mEq/L (3.5-5.1) 06/11/17 20: Chloride 98 mEq/L (98-107) 06/11/17 20:25 Carbon Dioxide 21.9 mEq/L (21.0-31.0) 06/11/17 20:25 Anion Gap 16.9 (7.0-16.0) H 06/11/17 20:25 BUN 17 mg/dL (7-25) 06/11/17 20:25 Creatinine 0.7 mg/dL (0.6-1.2) 06/11/17 20:25 Est GFR ( Amer) > 60.0 ml/min (>90) 06/11/17 20:25 Est GFR (Non-Af Amer) > 60.0 ml/min 06/11/17 20:25 BUN/Creatinine Ratio 24.3 06/11/17 20:25 Glucose 69 mg/dL (70-105) L 06/11/17 20:25 Calcium 9.9 mg/dL (8.6-10.3) 06/11/17 20:25 Iron 84 ug/dL (27-159) 06/11/17 20:25 TIBC 276 ug/dL (250-450) 06/11/17 20:25 Iron Saturation 30 % (15-55) 06/11/17 20:25 Unsaturated IBC 192 ug/dL (131-425) 06/11/17 20:25 Total Bilirubin 0.5 mg/dL (0.3-1.0) 06/11/17 20:25 AST 16 U/L (13-39) 06/11/17 20:25 ALT 11 U/L (7-52) 06/11/17 20:25 Alkaline Phosphatase 86 U/L (34-104) 06/11/17 20:25 Troponin I < 0.01 ng/mL (0.01-0.05) L 06/11/17 20:25 Total Protein 7.8 gm/dL (6.0-8.3) 06/11/17 20:25 Albumin 4.2 gm/dL (3.7-5.3) 06/11/17 20:25 Globulin 3.6 gm/dL 06/11/17 20:25 Albumin/Globulin Ratio 1.2 (1.0-1.8) 06/11/17 20:25 TSH 1.45 uIU/ml (0.34-5.60) 06/11/17 20:25 - Physical Exam Vitals and I&O: Vital Signs Temp 97 F 06/27/17 14:59 Pulse 110 06/27/17 14:59 Resp 18 06/27/17 14:59 BP 132/66 06/27/17 14:59 Pulse Ox 96 06/27/17 14:59 Intake & Output 06/26/17 06/27/17 06/27/17 18:59 06:59 18:59 Intake Total 1600 120 Balance 1600 120 Intake: Oral 1600 120 Other: # Voids 4 3 # Bowel Movements 0 Stool Characteristics Formed Formed Formed Brown Brown Brown Active Medications: Current Medications Acetaminophen (Tylenol) 650 mg PO Q4H PRN PRN Reason: Pain Or Fever above 101 Stop: 08/11/17 11:25 Al Hydrox/Mg Hydrox/Simethicone (Maalox) 30 ml PO Q4HR PRN PRN Reason: GI DISTRESS Stop: 08/11/17 11:10 Benztropine Mesylate (Cogentin) 1 mg PO HS CESIA Stop: 08/17/17 20:59 Last Admin: 06/26/17 20:43 Dose: 1 mg Lorazepam (Ativan) 0.5 mg PO Q4HR PRN; Protocol PRN Reason: Agitation Stop: 07/12/17 11:10 Last Admin: 06/26/17 00:58 Dose: 0.5 mg Magnesium Hydroxide (Milk Of Magnesia) 30 ml PO HS PRN PRN Reason: Constipation Multivitamins/Vitamin C (Theragran) 1 tab PO DAILY CESIA Stop: 08/12/17 08:59 Last Admin: 06/27/17 09:27 Dose: 1 tab Quetiapine Fumarate (Seroquel) 50 mg PO HS CESIA PRN Reason: Protocol Stop: 08/22/17 22:59 Last Admin: 06/26/17 20:43 Dose: 50 mg Temazepam (Restoril) 15 mg PO HS PRN; Protocol PRN Reason: Insomnia Stop: 08/23/17 20:53 Last Admin: 06/25/17 21:04 Dose: 15 mg General: demented HEENT: NC/AT, PERRLA Neck: Supple, No JVD, No LAD, deformity Lungs: CTAB Cardiovascular: RRR, Normal S1, Normal S2, without murmur Abdomen: soft, non-tender, non-distended, positive bowel sound Extremities: excoriation Internal Medicine Assmt/Plan - Assessment Assessment: Hyponatremia. schizoaffective disorder agitation. . - Plan Plan: We will correct electrolyte abnormalities. We will continue to monitor the patient closely. continue current plan of care Nutritional Asmnt/Malnutr-PDOC - Dietary Evaluation Malnutrition Findings (Please click <Entered> for more info): Nutritional Asmnt/Malnutrition Start: 06/14/17 17: 15 Text: Status: Complete Freq: Document 06/14/17 17:16 HEN (Rec: 06/14/17 17:18 HEN [email or web address]) Nutritional Asmnt/Malnutrition Patient General Information Nutritional Screening Moderate Risk Diagnosis schizophrenia Pertinent Medical Hx/Surgical Hx psycho disorder Subjective Information Consult received on 06/12 3: 08pm for refusal of meal/fluid . Per nurse note, pt c/p of refusal to eat x 3 days and refusing to take medications. Pt seen lying in bed at time of visit, very confused, not able to answer questions. Per EMR, PO intake 100% x 3 meals on 06/13. Current Diet Order/ Nutrition Support regular Pertinent Medications theragran Pertinent Labs 06/11 Na 133, glucose 69 Nutritional Hx/Data Height 5 ft 7 in Height (Calculated Centimeters) 170.2 Current Weight (lbs) 150 lb Weight (Calculated Kilograms) 68.0 Weight (Calculated Grams) 60641.9 Body Mass Index (BMI) 23.5 Weight Status Approriate GI Symptoms GI Symptoms None Last BM 0 Difficult in: None Skin Integrity/Comment: intact Current %PO Good (75-100%) Estimated Nutritional Goals BEE in Kcals: Using Current wt Calories/Kcals/Kg 25-30 Kcals Calculated 8885-9584 Protein: Using Current wt Protein g/k Protein Calculated 69 Fluid: ml 1700-2040ml (1ml/kcal) Nutritional Problem No current Nutrition Prob Problem N/A Malnutrition Alert Protein-Calorie Malnutrition N/A Is there a minimum of two criteria No selected? Query Text:Check all the applicable criteria. A minimum of two criteria are recommended for diagnosis of either severe or non-severe malnutrition. Intervention/Recommendation Comments 1. Continue with regular diet as ordered. 2. Monitor PO intake, wt, labs and skin integrity 3. F/U as low risk in 7 days, 06/21, PO check 06/17 Expected Outcomes/Goals Expected Outcomes/Goals 1. PO intake to meet at least 75% of nutritional needs. 2. Wt stability, skin to remain intact, labs to approach WNL.
--- NOTE | 2017-06-27 17:06 | Progress Notes ---
DATE: 06/27/2017 SUBJECTIVE: Staff was spoken to. The patient is interviewed. Mood is noted to be irritable. Affect is constricted. Coping skills are noted to be very poor. The patient is isolative and withdrawn. No side effects to the medications are noted. The patient so far has been compliant with the medication. ASSESSMENT: The patient's psychosis is resolving, possibly the patient is going to be discharged tomorrow. [facility]# [id number]
[2017-06-27] MEDS: Benztropine 1 MG TAB PO SCH ×2 (21:21→22:00)
--- NOTE | 2017-06-28 15:30 | Internal Medicine Prog Note ---
Internal Medicine Subjective - Subjective Patient seen and examined:: with staff, chart reviewed Patient is:: awake, verbal, interactive Patient Complaints of:: congestion Per staff patient has:: no adverse event, no episodes of fall, eating well, agitated, tolerating meds Internal Medicine Objective - Results Result Diagrams: 06/11/17 20:25 06/11/17 20:25 Recent Labs: Laboratory Last Values WBC 8.1 Th/cmm (4.8-10.8) 06/11/17 20: RBC 4.46 Mil/cmm (3.80-5.10) 06/11/17 20: Hgb 14.1 gm/dL (12-16) 06/11/17 20: Hct 41.5 % (41.0-60) 06/11/17: MCV 93.2 fl (81-100) 06/11/17 20: MCH 31.6 pg (27.0-31.0) H 06/11/17 20: MCHC Differential 33.9 pg (28.0-36.0) 06/11/17: RDW 13.4 % (11.5-20.0) 06/11/17 20: Plt Count 264 Th/cmm (150-400) 06/11/17 20: MPV 7.6 fl 06/11/17 20: Neutrophils % 55.6 % (40.0-80.0) 06/11/17 20: Lymphocytes % 35.4 % (20.0-50.0) 06/11/17: Monocytes % 6.0 % (2.0-10.0) 06/11/17: Eosinophils % 1.5 % (0.0-5.0) 06/11/17 20: Basophils % 1.5 % (0.0-2.0) 06/11/17 20: PT 11.6 SECONDS (9.5-11.5) H 06/11/17 20: INR 1.11 (0.5-1.4) 06/11/17 20:25 Sodium 133 mEq/L (136-145) L 06/11/17 20:25 Potassium 3.8 mEq/L (3.5-5.1) 06/11/17 20:25 Chloride 98 mEq/L (98-107) 06/11/17 20:25 Carbon Dioxide 21.9 mEq/L (21.0-31.0) 06/11/17 20:25 Anion Gap 16.9 (7.0-16.0) H 06/11/17 20:25 BUN 17 mg/dL (7-25) 06/11/17 20:25 Creatinine 0.7 mg/dL (0.6-1.2) 06/11/17 20:25 Est GFR ( Amer) > 60.0 ml/min (>90) 06/11/17 20:25 Est GFR (Non-Af Amer) > 60.0 ml/min 06/11/17 20:25 BUN/Creatinine Ratio 24.3 06/11/17 20:25 Glucose 69 mg/dL (70-105) L 06/11/17 20:25 Calcium 9.9 mg/dL (8.6-10.3) 06/11/17 20:25 Iron 84 ug/dL (27-159) 06/11/17 20:25 TIBC 276 ug/dL (250-450) 06/11/17 20:25 Iron Saturation 30 % (15-55) 06/11/17 20:25 Unsaturated IBC 192 ug/dL (131-425) 06/11/17 20:25 Total Bilirubin 0.5 mg/dL (0.3-1.0) 06/11/17 20:25 AST 16 U/L (13-39) 06/11/17 20:25 ALT 11 U/L (7-52) 06/11/17 20:25 Alkaline Phosphatase 86 U/L (34-104) 06/11/17 20:25 Troponin I < 0.01 ng/mL (0.01-0.05) L 06/11/17 20:25 Total Protein 7.8 gm/dL (6.0-8.3) 06/11/17 20:25 Albumin 4.2 gm/dL (3.7-5.3) 06/11/17 20:25 Globulin 3.6 gm/dL 06/11/17 20:25 Albumin/Globulin Ratio 1.2 (1.0-1.8) 06/11/17 20:25 TSH 1.45 uIU/ml (0.34-5.60) 06/11/17 20:25 - Physical Exam Vitals and I&O: Vital Signs Temp 97 F 06/27/17 14:59 Pulse 110 06/27/17 14:59 Resp 18 06/27/17 14:59 BP 132/66 06/27/17 14:59 Pulse Ox 96 06/27/17 14:59 Intake & Output 06/27/17 06/28/17 06/28/17 18:59 06:59 18:59 Intake Total 1200 180 Balance 1200 180 Intake: Oral 1200 180 Other: # Voids 4 2 # Bowel Movements 1 0 Stool Characteristics Formed Brown Brown Brown Active Medications: Current Medications Acetaminophen (Tylenol) 650 mg PO Q4H PRN PRN Reason: Pain Or Fever above 101 Stop: 08/11/17 11:25 Al Hydrox/Mg Hydrox/Simethicone (Maalox) 30 ml PO Q4HR PRN PRN Reason: GI DISTRESS Stop: 08/11/17 11:10 Benztropine Mesylate (Cogentin) 1 mg PO HS CESIA Stop: 08/17/17 20:59 Last Admin: 06/27/17 22:00 Dose: 1 mg Lorazepam (Ativan) 0.5 mg PO Q4HR PRN; Protocol PRN Reason: Agitation Stop: 07/12/17 11:10 Last Admin: 06/26/17 00:58 Dose: 0.5 mg Magnesium Hydroxide (Milk Of Magnesia) 30 ml PO HS PRN PRN Reason: Constipation Multivitamins/Vitamin C (Theragran) 1 tab PO DAILY CESIA Stop: 08/12/17 08:59 Last Admin: 06/27/17 09:27 Dose: 1 tab Quetiapine Fumarate (Seroquel) 50 mg PO HS CESIA PRN Reason: Protocol Stop: 08/22/17 22:59 Last Admin: 06/27/17 22:00 Dose: 50 mg Temazepam (Restoril) 15 mg PO HS PRN; Protocol PRN Reason: Insomnia Stop: 08/23/17 20:53 Last Admin: 06/25/17 21:04 Dose: 15 mg General: demented HEENT: NC/AT, PERRLA Neck: Supple, No JVD, No LAD, deformity Lungs: CTAB Cardiovascular: RRR, Normal S1, Normal S2, without murmur Abdomen: soft, non-tender, non-distended, positive bowel sound Extremities: excoriation Internal Medicine Assmt/Plan - Assessment Assessment: ASSESSMENT AND PLAN: Hyponatremia. ALLERGIC TO ASPIRIN AND CODEINE, schizoaffective disorder, agitation. - Plan Plan: We will provide the patient with nonsteroidal anti-inflammatories. We will correct electrolyte abnormalities. We will continue to monitor the patient closely. Case was discussed with nursing staff as well as the patient. Nutritional Asmnt/Malnutr-PDOC - Dietary Evaluation Malnutrition Findings (Please click <Entered> for more info): Nutritional Asmnt/Malnutrition Start: 06/14/17 17: 15 Text: Status: Complete Freq: Document 06/14/17 17:16 LCHENG (Rec: 06/14/17 17:18 LCHENG [email or web address]) Nutritional Asmnt/Malnutrition Patient General Information Nutritional Screening Moderate Risk Diagnosis schizophrenia Pertinent Medical Hx/Surgical Hx psycho disorder Subjective Information Consult received on 06/12 3: 08pm for refusal of meal/fluid . Per nurse note, pt c/p of refusal to eat x 3 days and refusing to take medications. Pt seen lying in bed at time of visit, very confused, not able to answer questions. Per EMR, PO intake 100% x 3 meals on 06/13. Current Diet Order/ Nutrition Support regular Pertinent Medications theragran Pertinent Labs 06/11 Na 133, glucose 69 Nutritional Hx/Data Height 1.7 m Height (Calculated Centimeters) 170.2 Current Weight (lbs) 68.039 kg Weight (Calculated Kilograms) 68.0 Weight (Calculated Grams) 17669.9 Body Mass Index (BMI) 23.5 Weight Status Approriate GI Symptoms GI Symptoms None Last BM 0 Difficult in: None Skin Integrity/Comment: intact Current %PO Good (75-100%) Estimated Nutritional Goals BEE in Kcals: Using Current wt Calories/Kcals/Kg 25-30 Kcals Calculated 3960-4194 Protein: Using Current wt Protein g/k Protein Calculated 69 Fluid: ml 1700-2040ml (1ml/kcal) Nutritional Problem No current Nutrition Prob Problem N/A Malnutrition Alert Protein-Calorie Malnutrition N/A Is there a minimum of two criteria No selected? Query Text:Check all the applicable criteria. A minimum of two criteria are recommended for diagnosis of either severe or non-severe malnutrition. Intervention/Recommendation Comments 1. Continue with regular diet as ordered. 2. Monitor PO intake, wt, labs and skin integrity 3. F/U as low risk in 7 days, 06/21, PO check 06/17 Expected Outcomes/Goals Expected Outcomes/Goals 1. PO intake to meet at least 75% of nutritional needs. 2. Wt stability, skin to remain intact, labs to approach WNL.
== END 2017-06-28 16:30 | DRG 885 ==
LOC: ER 19:57 → GERO 06-12 09:16
DX: F20.0 Paranoid schizophrenia (principal); E87.1 Hypo-osmolality and hyponatremia; F17.210 Nicotine dependence, cigarettes, uncomplicated; F29 Unspecified psychosis not due to a substance or known physiological condition; Z88.5 Allergy status to narcotic agent
CPT/HCPCS: 36415-UA; 71045-TC; 80053-TC; 83540-90; 83550-90; 84443-TC; 84484-TC; 85025-TC; 85610-TC; J1200; J1630; J2060; Z7610

== ENCOUNTER 2017-10-05 14:18 | Inpatient (IN) | payer MEDICARE, MEDICAID ==
--- NOTE | 2017-10-05 14:59 | ED Physician Chart ---
ED Chief Complaint/HPI - Patient Information Date Seen:: 10/05/17 Time Seen:: 14:40 Chief Complaint:: Agitation History of Present Illness:: onset x 2 days of agitation and hostile behavior with pt striking out at others ; no report of trauma, SIs, H/As, neck pain, C/P, SOB, Abd. Pain, A/N/V/D/C, fever, chills, or urinary s/s Allergies:: Allergies Allergy/AdvReac Type Severity Reaction Status Date / Time aspirin Allergy Verified 10/05/17 14:39 codeine Allergy Verified 06/11/17 20:18 Vitals:: Vital Signs - 8 hr 10/05/17 14:39 Temp 99 F HR 98 RR 16 BP 131/74 O2 Sat % 97 Historian:: Patient, EMS Review:: Nurse's Note Reviewed, Old Chart Reviewed, EMS run form Reviewed ED Review of Systems - Review of Systems General/Constitutional: No fever, No chills, No weight loss, No weakness, No diaphoresis, No edema, No loss of appetite Skin: No skin lesions, No rash, No bruising Head: No headache, No light-headedness Eyes: No loss of vision, No pain, No diplopia ENT: No earache, No nasal drainage, No sore throat, No tinnitus Neck: No neck pain, No swelling, No thyromegaly, No stiffness, No mass noted Cardio Vascular: No chest pain, No palpitations, No PND, No orthopnea, No edema Pulmonary: No SOB, No cough, No sputum, No wheezing GI: No nausea, No vomiting, No diarrhea, No pain, No melena, No hematochezia, No constipation, No hematemesis G/U: No dysuria, No frequency, No hematuria, No nacturia Visual Effects Editor: No vaginal discharge, No abnormal vaginal bleed, No contraction Musculoskeletal: No bone or joint pain, No back pain, No muscle pain Endocrine: No polyuria, No polydipsia Psychiatric: Prior psych history, No depression, Anxiety, No suicidal ideation, No homicidal ideation, No auditory hallucination, No visual hallucination Hematopoietic: No bruising, No lymphadenopathy Allergic/Immuno: No urticaria, No angioedema Neurological: No syncope, No focal symptoms, No weakness, No paresthesia, No headache, No seizure, No dizziness, No confusion, No vertigo ED Past Medical History - Past Medical History Obtainable: Yes Past Medical History: HTN, Other (Anemia) Family History: HTN Social History: Non Smoker, No Alcohol, No Drug Use, Single, Care Facility Surgical History: None Psychiatricy History: Schizophrenia Medication: Reviewed Family Medical History - Family Member Mother History Unknown: Yes ED Physical Exam - Physical Examination General/Constitutional: Awake, Well-developed, well-nourished, Alert, No distress, GCS 15, Non-toxic appearing, Ambulatory Head: Atraumatic Eyes: Lids, conjuctiva normal, PERRL, EOMI Skin: Nl inspection, No rash, No skin lesions, No ecchymosis, Well hydrated, No lymphadenopathy ENMT: External ears, nose nl, TM canals nl, Nasal exam nl, Lips, teeth, gums nl , Oropharynx nl, Tonsils nl Neck: Nontender, Full ROM w/o pain, No JVD, No nuchal rigidity, No bruit, No mass, No stridor Respiratory: Nl effort/Exclusion, Clear to Auscultation, No Wheeze/Rhonchi/Rales Cardio Vascular: RRR, No murmur, gallop, rubs, NL S1 S2, Carotid/Femoral/Distal pulses equal bilaterally GI: No tenderness/rebounding/guarding, No organomegaly, No hernia, Normal BS's, Nondistended, No mass/bruits, No McBurney tenderness : No CVA tenderness Extremities: No tenderness or effusion, Full ROM, normal strength in all extremities, No edema, Normal digits & nails Neuro/Psych: Alert/oriented, DTR's symmetric, Normal sensory exam, Normal motor strength, Judgement/insight normal, Mood normal, Normal gait, No focal deficits Other Neuro/Psych comments:: + Psychomotor Agitation; no SIs; Mood/Affect: Labile Misc: Normal back, No paraspinal tenderness ED Labs/Radiology/EKG Results - Lab Results Comments:: Reviewed - EKG Interpretations EKG Time:: 15:21 Rate & Rhythm: 77; NSR Comments:: non-specific st-t changes ED Septic Shock - . Is Septic Shock (SBP<90, OR Lactate>4 mmol\L) present?: No - <6hrs of presentation: Vital Signs: Vital Signs - 8 hr 10/05/17 14:39 Temp 99 F HR 98 RR 16 BP 131/74 O2 Sat % 97 ED Reassessment (Disposition) - Reassessment Reassessment Condition:: Improved - Diagnosis Diagnosis:: Agitation; Schizophrenia; Medical Clearance; Psychosis; Bipolar Disorder - Aftercare/Follow up Instructions Aftercare/Follow-Up Instructions:: Counseled pt regarding lab results/diagnosis & need follow up, Counseled pt & family regarding lab results/diagnosis & need follow up - Patient Disposition Discharge/Transfer:: Acute Care w/in this hosp Admitted to:: [facility] Condition at Disposition:: Stable, Improved
[2017-10-05 15:28] LABS: % BASOPHILS 0.5 % (0.0-2.0); % MONOCYTES 8.1 % (2.0-10.0); % NEUTROPHILS 52.4 % (40.0-80.0); EOSINOPHILE ABSOLUTE 0.2 Th/cmm (0.1-0.4); HEMATOCRIT 37.5 % (41.0-60); LYMPHOCYTE ABSOLUTE 2.7 Th/cmm (1.5-3.0); MEAN CELL VOLUME 95.4 fl (81-100); MEAN CORPUSCULAR HEMOGLOBIN 33.1 pg (27.0-31.0); MEAN CORPUSCULAR HGB CONC 34.7 pg (28.0-36.0); MEAN PLATELET VOLUME 7.7 fl; MONOCYTE ABSOLUTE 0.6 Th/cmm (0.3-1.0); NEUTROPHILE ABSOLUTE 4.1 Th/cmm (1.8-8.0); PLATELET COUNT 222 Th/cmm (150-400); RED BLOOD COUNT 3.93 Mil/cmm (3.80-5.10); RED CELL DISTRIBUTION WIDTH 13.2 % (11.5-20.0); WHITE BLOOD COUNT 7.6 Th/cmm (4.8-10.8)
[2017-10-05 15:54] LABS: ACETAMINOPHEN < 10.0 ug/mL (10.0-30.0); ALB/GLOB RATIO 1.5 (1.0-1.8); ALBUMIN 4.3 gm/dL (3.7-5.3); ALKALINE PHOSPHATASE 78 U/L (34-104); ANION GAP 7.8 (7.0-16.0); BILIRUBIN,TOTAL 0.3 mg/dL (0.3-1.0); BUN - UREA NITROGEN 10 mg/dL (7-25); CALCIUM SERUM 9.7 mg/dL (8.6-10.3); CHLORIDE 104 mEq/L (98-107); CHOLESTEROL 168 mg/dL (<200); CREATININE - SERUM 0.6 mg/dL (0.6-1.2); GFR AFRICAN-AMERICAN > 60.0 ml/min (>90); GFR NON AFRICAN-AMERICAN > 60.0 ml/min; GLUCOSE 107 mg/dL (70-105); HDL -HIGH DENSITY LIPOPROTEIN 44 mg/dL (23-92); POTASSIUM SERUM 3.8 mEq/L (3.5-5.1); SALICYLATES (ASPIRIN) < 25.0 mg/L (30.0-100.0); SGOT 19 U/L (13-39); SGPT/ALT 13 U/L (7-52); SODIUM SERUM 135 mEq/L (136-145); TOTAL PROTEIN,SERUM 7.1 gm/dL (6.0-8.3); TRIGLYCERIDES 219 mg/dL (<150)
[2017-10-05 16:32] LABS: URINE SOURCE CLEAN C
[2017-10-05 16:41] LABS: URINE BILIRUBIN NEGATIVE (NEGATIVE); URINE BLOOD NEGATIVE (NEGATIVE); URINE GLUCOSE (UA) NEGATIVE (NEGATIVE); URINE KETONE NEGATIVE (NEGATIVE); URINE LEUKOCYTE ESTERASE SMALL (NEGATIVE); URINE MICROSCOPIC INDICATED? YES; URINE NITRATE POSITIVE (NEGATIVE); URINE PH 6.5 (4.6 - 8.0); URINE PROTEIN NEGATIVE (NEGATIVE); URINE UROBILINOGEN 0.2 E.U./dL (0.2 - 1.0)
[2017-10-05 16:47] LABS: URINE COLOR YELLOW
[2017-10-05 16:49] LABS: URINE CLARITY HAZY (CLEAR)
[2017-10-05 16:50] VITALS: BP 139/78
[2017-10-05 16:50] LABS: URINE BACTERIA 4+ /hpf (NONE SEEN); URINE EPITHELIAL CELLS FEW /lpf (FEW); URINE RBC 0-2 /hpf (0-5)
[2017-10-05] MEDS ORDERED: Magnesium Hydroxide (MOM) 30 mL UDC PO PRN (16:55)
[2017-10-05] MEDS ORDERED: Maalox 30 mL Cup PO PRN (16:55)
[2017-10-05 17:04] LABS: AMPHETAMINE URINE NEGATIVE (NEGATIVE); BARBITURATES URINE NEGATIVE (NEGATIVE); BENZODIAZEPINES QUAL URINE NEGATIVE (NEGATIVE); CANNABINOID THC NEGATIVE (NEGATIVE); COCAINE METABOLITE QUAL URINE NEGATIVE (NEGATIVE); METHADONE URINE NEGATIVE (NEGATIVE); METHAMPHETAMINES QUAL URINE NEGATIVE (NEGATIVE); OPIATES (MORPHINE) QUAL. URINE NEGATIVE (NEGATIVE); PHENCYCLIDINE (PCP) URINE NEGATIVE (NEGATIVE); TRICYCLICS (TCA) QUAL. URINE NEGATIVE (NEGATIVE)
[2017-10-05 20:11] LABS: A1C % 5.1 % (4.0-6.0)
[2017-10-06] MEDS ORDERED: VIT C PO SCH (09:00)
[2017-10-06] MEDS ORDERED: OMEGA PO SCH (09:00)
[2017-10-06] MEDS ORDERED: Multivitamin Tab PO SCH ×2 (09:00)
[2017-10-06] MEDS ORDERED: LUTEIN PO SCH (09:00)
[2017-10-06] MEDS ORDERED: VIT E PO SCH (09:00)
[2017-10-06] MEDS: Benztropine 1 MG TAB PO SCH ×2 (09:11→17:10)
--- NOTE | 2017-10-06 13:40 | Diagnostic Imaging Report ---
CHEST X-RAY: AP view INDICATION: Pneumonia COMPARISON: 06/11/2017 FINDINGS: Mild increased initial lung markings are noted. There is no focal consolidation or pleural effusions The heart is normal in size. The osseous structures demonstrate no acute abnormalities. IMPRESSION: Mild increased interstitial lung markings which may be due to mild chronic changes. No focal consolidation identified.
--- NOTE | 2017-10-06 14:33 | Internal Medicine Prog Note ---
Internal Medicine Subjective - Subjective Service Date: 10/06/17 ([id number]) Internal Medicine Objective - Results Result Diagrams: 10/05/17 15:20 10/05/17 15:20 Recent Labs: Laboratory Last Values WBC 7.6 Th/cmm (4.8-10.8) 10/05/17 15:20 RBC 3.93 Mil/cmm (3.80-5.10) 10/05/17 15:20 Hgb 13.0 gm/dL (12-16) 10/05/17 15:20 Hct 37.5 % (41.0-60) L 10/05/17 15:20 MCV 95.4 fl (81-100) 10/05/17 15:20 MCH 33.1 pg (27.0-31.0) H 10/05/17 15:20 MCHC Differential 34.7 pg (28.0-36.0) 10/05/17 15:20 RDW 13.2 % (11.5-20.0) 10/05/17 15:20 Plt Count 222 Th/cmm (150-400) 10/05/17 15:20 MPV 7.7 fl 10/05/17 15:20 Neutrophils % 52.4 % (40.0-80.0) 10/05/17 15:20 Lymphocytes % 36.0 % (20.0-50.0) 10/05/17 15:20 Monocytes % 8.1 % (2.0-10.0) 10/05/17 15:20 Eosinophils % 3.0 % (0.0-5.0) 10/05/17 15:20 Basophils % 0.5 % (0.0-2.0) 10/05/17 15:20 Sodium 135 mEq/L (136-145) L 10/05/17 15:20 Potassium 3.8 mEq/L (3.5-5.1) 10/05/17 15:20 Chloride 104 mEq/L (98-107) 10/05/17 15:20 Carbon Dioxide 27.0 mEq/L (21.0-31.0) 10/05/17 15:20 Anion Gap 7.8 (7.0-16.0) 10/05/17 15:20 BUN 10 mg/dL (7-25) 10/05/17 15:20 Creatinine 0.6 mg/dL (0.6-1.2) 10/05/17 15:20 Est GFR ( Amer) > 60.0 ml/min (>90) 10/05/17 15:20 Est GFR (Non-Af Amer) > 60.0 ml/min 10/05/17 15:20 BUN/Creatinine Ratio 16.7 10/05/17 15:20 Glucose 107 mg/dL (70-105) H 10/05/17 15:20 Hemoglobin A1c % 5.1 % (4.0-6.0) 10/05/17 15:20 Calcium 9.7 mg/dL (8.6-10.3) 10/05/17 15:20 Total Bilirubin 0.3 mg/dL (0.3-1.0) 10/05/17 15:20 AST 19 U/L (13-39) 10/05/17 15:20 ALT 13 U/L (7-52) 10/05/17 15:20 Alkaline Phosphatase 78 U/L (34-104) 10/05/17 15:20 Troponin I 0.04 ng/mL (0.01-0.05) 10/05/17 15:20 Total Protein 7.1 gm/dL (6.0-8.3) 10/05/17 15:20 Albumin 4.3 gm/dL (3.7-5.3) 10/05/17 15:20 Globulin 2.8 gm/dL 10/05/17 15:20 Albumin/Globulin Ratio 1.5 (1.0-1.8) 10/05/17 15:20 Triglycerides 219 mg/dL (<150) H 10/05/17 15:20 Cholesterol 168 mg/dL (<200) 10/05/17 15:20 LDL Cholesterol Direct 97 mg/dL (75-193) 10/05/17 15:20 HDL Cholesterol 44 mg/dL (23-92) 10/05/17 15:20 TSH 2.13 uIU/ml (0.34-5.60) 10/05/17 15:20 Urine Source CLEAN C 10/05/17 16:21 Urine Color YELLOW 10/05/17 16:21 Urine Clarity HAZY (CLEAR) 10/05/17 16:21 Urine pH 6.5 (4.6 - 8.0) 10/05/17 16:21 Ur Specific [place] <= 1.005 (1.005-1.030) 10/05/17 16:21 Urine Protein NEGATIVE mg/dL (NEGATIVE) 10/05/17 16:21 Urine Glucose (UA) NEGATIVE mg/dL (NEGATIVE) 10/05/17 16:21 Urine Ketones NEGATIVE mg/dL (NEGATIVE) 10/05/17 16:21 Urine Blood NEGATIVE (NEGATIVE) 10/05/17 16:21 Urine Nitrate POSITIVE (NEGATIVE) H 10/05/17 16:21 Urine Bilirubin NEGATIVE (NEGATIVE) 10/05/17 16:21 Urine Urobilinogen 0.2 E.U./dL (0.2 - 1.0) 10/05/17 16:21 Ur Leukocyte Esterase SMALL (NEGATIVE) H 10/05/17 16:21 Urine RBC 0-2 /hpf (0-5) 10/05/17 16:21 Urine WBC 2-5 /hpf (0-5) 10/05/17 16:21 Ur Epithelial Cells FEW /lpf (FEW) 10/05/17 16:21 Urine Bacteria 4+ /hpf (NONE SEEN) H 10/05/17 16:21 Salicylates < 25.0 mg/L (30.0-100.0) L 10/05/17 15:20 Urine Opiates Screen NEGATIVE (NEGATIVE) 10/05/17 16:21 Urine Methadone Screen NEGATIVE (NEGATIVE) 10/05/17 16:21 Acetaminophen < 10.0 ug/mL (10.0-30.0) L 10/05/17 15:20 Ur Barbiturates Screen NEGATIVE (NEGATIVE) 10/05/17 16:21 Ur Tricyclics Screen NEGATIVE (NEGATIVE) 10/05/17 16:21 Ur Phencyclidine Scrn NEGATIVE (NEGATIVE) 10/05/17 16:21 Amphetamines Screen NEGATIVE (NEGATIVE) 10/05/17 16:21 U Methamphetamines Scrn NEGATIVE (NEGATIVE) 10/05/17 16:21 U Benzodiazepines Scrn NEGATIVE (NEGATIVE) 10/05/17 16:21 U Cocaine Metab Screen NEGATIVE (NEGATIVE) 10/05/17 16:21 U Cannabinoids Screen NEGATIVE (NEGATIVE) 10/05/17 16:21 Ethyl Alcohol < 10 mg/dL (0-10) 10/05/17 15:20 - Physical Exam Vitals and I&O: Vital Signs Temp 97.2 F 10/06/17 14:07 Pulse 70 10/06/17 14:07 Resp 20 10/06/17 14:07 BP 130/64 10/06/17 14:07 Pulse Ox 98 10/06/17 14:07 Intake & Output 10/05/17 10/06/17 10/06/17 18:59 06:59 18:59 Intake Total 500 Balance 500 Weight (lbs) 101 lb Intake: Oral 500 Other: # Voids 4 # Bowel Movements 0 Weight Source Estimated Active Medications: Current Medications Acetaminophen (Tylenol) 650 mg PO Q4HR PRN PRN Reason: Mild Pain / Temp above 100 Stop: 12/04/17 16:54 Al Hydrox/Mg Hydrox/Simethicone (Maalox) 30 ml PO Q4HR PRN PRN Reason: GI DISTRESS Stop: 12/04/17 16:54 Benztropine Mesylate (Cogentin) 1 mg PO BID CESIA Stop: 12/05/17 08:59 Last Admin: 10/06/17 09:11 Dose: 1 mg Lorazepam (Ativan) 0.5 mg PO Q4HR PRN; Protocol PRN Reason: Anxiety Stop: 11/04/17 16:54 Magnesium Hydroxide (Milk Of Magnesia) 30 ml PO HS PRN PRN Reason: Constipation Miscellaneous (Vit C/Vit E/Lutein/Min/[place]-3 [Ocuvite Softgel]) 1 tab PO BID CESIA Stop: 12/05/17 08:59 Multivitamins/Vitamin C (Theragran) 1 tab PO DAILY CESIA Stop: 12/05/17 08:59 Last Admin: 10/06/17 09:11 Dose: 1 tab Quetiapine Fumarate (Seroquel) 100 mg PO HS CESIA; Protocol Stop: 12/04/17 20:59
--- NOTE | 2017-10-06 15:06 | Psychiatric Evaluation ---
DATE OF SERVICE: 10/06/2017 IDENTIFYING DATA: The patient is a 62-year-old woman, resident of [facility]. Information obtained by directly interviewing the patient as well as reviewing the admission papers. JUSTIFICATION FOR HOSPITALIZATION: The patient is admitted for acute agitation and psychosis. CHIEF COMPLAINT: "Leave me alone. 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 The patient was stabilized and was discharged back to the facility for followup. However, the patient is reported to have been getting easily agitated, not willing to comply with the treatment. Screaming and yelling and has been striking out at the staff members and the patient has to be brought back in here for stabilization, tried to interview the patient and the patient is getting very resistive and has been getting easily irritable. PAST PSYCHIATRIC HISTORY: Please refer to the above. MEDICAL HISTORY: Physical examination was done by Dr. Clayton. SUBSTANCE ABUSE HISTORY: None. PHYSICAL OR SEXUAL ABUSE HISTORY: None. SOCIAL HISTORY: The patient is a resident of the [facility]. LEGAL PROBLEMS: None at this time. STRENGTH AND ASSETS: The patient is motivated. MENTAL STATUS EXAMINATION: The patient is a 62-year-old, looking her stated age, superficially cooperative. Eye contact is poor. Mood is noted to be irritable. Affect is constricted. Insight and judgment at this time are noted to be impaired. Impulse control is noted to be poor. Coping skills are noted to be poor. The patient has been having difficult time to cope with the stress. The patient is very paranoid and at times displaying grandiose delusions. The patient has no insight. The patient is alert and aware that she is in the hospital. Short and long-term are noted to be intact. DIAGNOSTIC IMPRESSION: AXIS I: Schizoaffective disorder. AXIS II: None. AXIS III: As per Dr. Clayton. IMMEDIATE TREATMENT PLAN: The patient is going to be continued on her Seroquel as she has been getting and patient is going to be considered for Depakote. Estimated length of stay 5-7 days. DISCHARGE CRITERIA: When she no longer a threat to self or others and be able to cope up with the stress. [facility]# [id number]
--- NOTE | 2017-10-06 15:46 | History & Physical ---
ADMIT DATE: 10/06/2017 CHIEF COMPLAINT: Agitation. HISTORY OF PRESENT ILLNESS: This is a 62-year-old female who is a [facility] resident, admitted to the Geropsych Unit due to a 2-day history of agitation and aggressive behavior towards the nursing staff. PAST MEDICAL HISTORY: Hypertension and anemia. PAST SURGICAL HISTORY: None. ALLERGIES: ASPIRIN and CODEINE. SOCIAL HISTORY: The patient is a [facility] resident, requiring 24-hour nursing care. REVIEW OF SYSTEMS: GENERAL: Denies any fevers or chills. CARDIOVASCULAR: Denies chest pain. RESPIRATORY: Denies shortness of breath. GASTROINTESTINAL: Denies nausea, vomiting, abdominal pain. GENITOURINARY: Denied increased frequency or dysuria. NEUROLOGIC: No headache, seizure or syncope. All systems reviewed are negative. PHYSICAL EXAMINATION: GENERAL: Elderly female, awake, alert with some confusion. No apparent distress. VITAL SIGNS: Temperature 97.2, heart rate 70, blood pressure 130/64, respirations 20 and O2 98%. HEENT: Head; normocephalic and atraumatic. NECK: Supple, bowel sounds present. LUNGS: Clear bilaterally. HEART: Regular rate and rhythm. ABDOMEN: Soft and nontender. LABORATORY DATA: WBC 7.6, H and H 13.0 and 37.5 and platelet of 222. Sodium 135, potassium 2.8, chloride 104, BUN 10 and creatinine 0.6. ASSESSMENT: Agitation, hypertension, anemia and schizophrenia. PLAN: The patient to continue psychiatry medications and also [facility] medications. Fall precautions will be reinitiated. We will continue to follow this patient. [facility]# [id number]
[2017-10-07] MEDS: Benztropine 1 MG TAB PO SCH ×2 (08:21→16:21)
[2017-10-07] MEDS: Multivitamin w/ Minerals Tab PO SCH (08:21)
--- NOTE | 2017-10-07 14:20 | Internal Medicine Prog Note ---
Internal Medicine Subjective - Subjective Service Date: 10/07/17 Patient seen and examined:: with staff Patient is:: awake, verbal Per staff patient has:: tolerating meds Internal Medicine Objective - Results Result Diagrams: 10/05/17 15:20 10/05/17 15:20 Recent Labs: Laboratory Last Values WBC 7.6 Th/cmm (4.8-10.8) 10/05/17 15:20 RBC 3.93 Mil/cmm (3.80-5.10) 10/05/17 15:20 Hgb 13.0 gm/dL (12-16) 10/05/17 15:20 Hct 37.5 % (41.0-60) L 10/05/17 15:20 MCV 95.4 fl (81-100) 10/05/17 15:20 MCH 33.1 pg (27.0-31.0) H 10/05/17 15:20 MCHC Differential 34.7 pg (28.0-36.0) 10/05/17 15:20 RDW 13.2 % (11.5-20.0) 10/05/17 15:20 Plt Count 222 Th/cmm (150-400) 10/05/17 15:20 MPV 7.7 fl 10/05/17 15:20 Neutrophils % 52.4 % (40.0-80.0) 10/05/17 15:20 Lymphocytes % 36.0 % (20.0-50.0) 10/05/17 15:20 Monocytes % 8.1 % (2.0-10.0) 10/05/17 15:20 Eosinophils % 3.0 % (0.0-5.0) 10/05/17 15:20 Basophils % 0.5 % (0.0-2.0) 10/05/17 15:20 Sodium 135 mEq/L (136-145) L 10/05/17 15:20 Potassium 3.8 mEq/L (3.5-5.1) 10/05/17 15:20 Chloride 104 mEq/L (98-107) 10/05/17 15:20 Carbon Dioxide 27.0 mEq/L (21.0-31.0) 10/05/17 15:20 Anion Gap 7.8 (7.0-16.0) 10/05/17 15:20 BUN 10 mg/dL (7-25) 10/05/17 15:20 Creatinine 0.6 mg/dL (0.6-1.2) 10/05/17 15:20 Est GFR ( Amer) > 60.0 ml/min (>90) 10/05/17 15:20 Est GFR (Non-Af Amer) > 60.0 ml/min 10/05/17 15:20 BUN/Creatinine Ratio 16.7 10/05/17 15:20 Glucose 107 mg/dL (70-105) H 10/05/17 15:20 Hemoglobin A1c % 5.1 % (4.0-6.0) 10/05/17 15:20 Calcium 9.7 mg/dL (8.6-10.3) 10/05/17 15:20 Total Bilirubin 0.3 mg/dL (0.3-1.0) 10/05/17 15:20 AST 19 U/L (13-39) 10/05/17 15:20 ALT 13 U/L (7-52) 10/05/17 15:20 Alkaline Phosphatase 78 U/L (34-104) 10/05/17 15:20 Troponin I 0.04 ng/mL (0.01-0.05) 10/05/17 15:20 Total Protein 7.1 gm/dL (6.0-8.3) 10/05/17 15:20 Albumin 4.3 gm/dL (3.7-5.3) 10/05/17 15:20 Globulin 2.8 gm/dL 10/05/17 15:20 Albumin/Globulin Ratio 1.5 (1.0-1.8) 10/05/17 15:20 Triglycerides 219 mg/dL (<150) H 10/05/17 15:20 Cholesterol 168 mg/dL (<200) 10/05/17 15:20 LDL Cholesterol Direct 97 mg/dL (75-193) 10/05/17 15:20 HDL Cholesterol 44 mg/dL (23-92) 10/05/17 15:20 TSH 2.13 uIU/ml (0.34-5.60) 10/05/17 15:20 Urine Source CLEAN C 10/05/17 16:21 Urine Color YELLOW 10/05/17 16:21 Urine Clarity HAZY (CLEAR) 10/05/17 16:21 Urine pH 6.5 (4.6 - 8.0) 10/05/17 16:21 Ur Specific [place] <= 1.005 (1.005-1.030) 10/05/17 16:21 Urine Protein NEGATIVE mg/dL (NEGATIVE) 10/05/17 16:21 Urine Glucose (UA) NEGATIVE mg/dL (NEGATIVE) 10/05/17 16:21 Urine Ketones NEGATIVE mg/dL (NEGATIVE) 10/05/17 16:21 Urine Blood NEGATIVE (NEGATIVE) 10/05/17 16:21 Urine Nitrate POSITIVE (NEGATIVE) H 10/05/17 16:21 Urine Bilirubin NEGATIVE (NEGATIVE) 10/05/17 16:21 Urine Urobilinogen 0.2 E.U./dL (0.2 - 1.0) 10/05/17 16:21 Ur Leukocyte Esterase SMALL (NEGATIVE) H 10/05/17 16:21 Urine RBC 0-2 /hpf (0-5) 10/05/17 16:21 Urine WBC 2-5 /hpf (0-5) 10/05/17 16:21 Ur Epithelial Cells FEW /lpf (FEW) 10/05/17 16:21 Urine Bacteria 4+ /hpf (NONE SEEN) H 10/05/17 16:21 Salicylates < 25.0 mg/L (30.0-100.0) L 10/05/17 15:20 Urine Opiates Screen NEGATIVE (NEGATIVE) 10/05/17 16:21 Urine Methadone Screen NEGATIVE (NEGATIVE) 10/05/17 16:21 Acetaminophen < 10.0 ug/mL (10.0-30.0) L 10/05/17 15:20 Ur Barbiturates Screen NEGATIVE (NEGATIVE) 10/05/17 16:21 Ur Tricyclics Screen NEGATIVE (NEGATIVE) 10/05/17 16:21 Ur Phencyclidine Scrn NEGATIVE (NEGATIVE) 10/05/17 16:21 Amphetamines Screen NEGATIVE (NEGATIVE) 10/05/17 16:21 U Methamphetamines Scrn NEGATIVE (NEGATIVE) 10/05/17 16:21 U Benzodiazepines Scrn NEGATIVE (NEGATIVE) 10/05/17 16:21 U Cocaine Metab Screen NEGATIVE (NEGATIVE) 10/05/17 16:21 U Cannabinoids Screen NEGATIVE (NEGATIVE) 10/05/17 16:21 Ethyl Alcohol < 10 mg/dL (0-10) 10/05/17 15:20 - Physical Exam Vitals and I&O: Vital Signs Temp 97.9 F 10/07/17 14:00 Pulse 99 10/07/17 14:00 Resp 18 10/07/17 14:00 BP 105/77 10/07/17 14:00 Pulse Ox 100 10/07/17 14:00 Intake & Output 10/06/17 10/07/17 10/07/17 18:59 06:59 18:59 Intake Total 180 Balance 180 Intake: Oral 180 Other: # Voids 2 2 # Bowel Movements 0 0 Active Medications: Current Medications Acetaminophen (Tylenol) 650 mg PO Q4HR PRN PRN Reason: Mild Pain / Temp above 100 Stop: 12/04/17 16:54 Al Hydrox/Mg Hydrox/Simethicone (Maalox) 30 ml PO Q4HR PRN PRN Reason: GI DISTRESS Stop: 12/04/17 16:54 Benztropine Mesylate (Cogentin) 1 mg PO BID CESIA Stop: 12/05/17 08:59 Last Admin: 10/07/17 08:21 Dose: Not Given Lorazepam (Ativan) 0.5 mg PO Q4HR PRN; Protocol PRN Reason: Anxiety Stop: 11/04/17 16:54 Magnesium Hydroxide (Milk Of Magnesia) 30 ml PO HS PRN PRN Reason: Constipation Quetiapine Fumarate (Seroquel) 100 mg PO HS CESIA; Protocol Stop: 12/04/17 20:59 Last Admin: 10/06/17 20:49 Dose: Not Given General: alert HEENT: NC/AT, PERRLA Neck: Supple Lungs: CTAB Cardiovascular: RRR, Normal S1, Normal S2, without murmur Abdomen: soft, non-tender, non-distended, positive bowel sound Internal Medicine Assmt/Plan - Assessment Assessment: agitation htn anemia schizophrenia - Plan Plan: fall precautions continue current plan of care
--- NOTE | 2017-10-07 15:25 | Progress Notes ---
DATE: 10/07/2017 SUBJECTIVE: Staff was spoken to. The patient is interviewed. Mood is noted to be irritable. Affect is constricted. Insight and judgment at this time are noted to be still impaired. Impulse control seems to be limited. Coping skills are noted to be limited. The patient is still having paranoia. No side effects to the medications are noted. ASSESSMENT: The patient is still grossly psychotic and impulsive. PLAN: To continue the patient with the supportive therapy and follow the patient. JOB# [id number]
[2017-10-08] MEDS: Benztropine 1 MG TAB PO SCH ×2 (09:04→16:48)
[2017-10-08] MEDS: Multivitamin w/ Minerals Tab PO SCH (09:05)
--- NOTE | 2017-10-08 13:03 | Internal Medicine Prog Note ---
Internal Medicine Subjective - Subjective Patient seen and examined:: with staff, chart reviewed Patient is:: awake, verbal, agitated, confused Per staff patient has:: no adverse event, no episodes of fall, poor appetite, noncompliant, tolerating meds Internal Medicine Objective - Results Result Diagrams: 10/05/17 15:20 10/05/17 15:20 Recent Labs: Laboratory Last Values WBC 7.6 Th/cmm (4.8-10.8) 10/05/17 15:20 RBC 3.93 Mil/cmm (3.80-5.10) 10/05/17 15:20 Hgb 13.0 gm/dL (12-16) 10/05/17 15:20 Hct 37.5 % (41.0-60) L 10/05/17 15:20 MCV 95.4 fl (81-100) 10/05/17 15:20 MCH 33.1 pg (27.0-31.0) H 10/05/17 15:20 MCHC Differential 34.7 pg (28.0-36.0) 10/05/17 15:20 RDW 13.2 % (11.5-20.0) 10/05/17 15:20 Plt Count 222 Th/cmm (150-400) 10/05/17 15:20 MPV 7.7 fl 10/05/17 15:20 Neutrophils % 52.4 % (40.0-80.0) 10/05/17 15:20 Lymphocytes % 36.0 % (20.0-50.0) 10/05/17 15:20 Monocytes % 8.1 % (2.0-10.0) 10/05/17 15:20 Eosinophils % 3.0 % (0.0-5.0) 10/05/17 15:20 Basophils % 0.5 % (0.0-2.0) 10/05/17 15:20 Sodium 135 mEq/L (136-145) L 10/05/17 15:20 Potassium 3.8 mEq/L (3.5-5.1) 10/05/17 15:20 Chloride 104 mEq/L (98-107) 10/05/17 15:20 Carbon Dioxide 27.0 mEq/L (21.0-31.0) 10/05/17 15:20 Anion Gap 7.8 (7.0-16.0) 10/05/17 15:20 BUN 10 mg/dL (7-25) 10/05/17 15:20 Creatinine 0.6 mg/dL (0.6-1.2) 10/05/17 15:20 Est GFR ( Amer) > 60.0 ml/min (>90) 10/05/17 15:20 Est GFR (Non-Af Amer) > 60.0 ml/min 10/05/17 15:20 BUN/Creatinine Ratio 16.7 10/05/17 15:20 Glucose 107 mg/dL (70-105) H 10/05/17 15:20 Hemoglobin A1c % 5.1 % (4.0-6.0) 10/05/17 15:20 Calcium 9.7 mg/dL (8.6-10.3) 10/05/17 15:20 Total Bilirubin 0.3 mg/dL (0.3-1.0) 10/05/17 15:20 AST 19 U/L (13-39) 10/05/17 15:20 ALT 13 U/L (7-52) 10/05/17 15:20 Alkaline Phosphatase 78 U/L (34-104) 10/05/17 15:20 Troponin I 0.04 ng/mL (0.01-0.05) 10/05/17 15:20 Total Protein 7.1 gm/dL (6.0-8.3) 10/05/17 15:20 Albumin 4.3 gm/dL (3.7-5.3) 10/05/17 15:20 Globulin 2.8 gm/dL 10/05/17 15:20 Albumin/Globulin Ratio 1.5 (1.0-1.8) 10/05/17 15:20 Triglycerides 219 mg/dL (<150) H 10/05/17 15:20 Cholesterol 168 mg/dL (<200) 10/05/17 15:20 LDL Cholesterol Direct 97 mg/dL (75-193) 10/05/17 15:20 HDL Cholesterol 44 mg/dL (23-92) 10/05/17 15:20 TSH 2.13 uIU/ml (0.34-5.60) 10/05/17 15:20 Urine Source CLEAN C 10/05/17 16:21 Urine Color YELLOW 10/05/17 16:21 Urine Clarity HAZY (CLEAR) 10/05/17 16:21 Urine pH 6.5 (4.6 - 8.0) 10/05/17 16:21 Ur Specific [place] <= 1.005 (1.005-1.030) 10/05/17 16:21 Urine Protein NEGATIVE mg/dL (NEGATIVE) 10/05/17 16:21 Urine Glucose (UA) NEGATIVE mg/dL (NEGATIVE) 10/05/17 16:21 Urine Ketones NEGATIVE mg/dL (NEGATIVE) 10/05/17 16:21 Urine Blood NEGATIVE (NEGATIVE) 10/05/17 16:21 Urine Nitrate POSITIVE (NEGATIVE) H 10/05/17 16:21 Urine Bilirubin NEGATIVE (NEGATIVE) 10/05/17 16:21 Urine Urobilinogen 0.2 E.U./dL (0.2 - 1.0) 10/05/17 16:21 Ur Leukocyte Esterase SMALL (NEGATIVE) H 10/05/17 16:21 Urine RBC 0-2 /hpf (0-5) 10/05/17 16:21 Urine WBC 2-5 /hpf (0-5) 10/05/17 16:21 Ur Epithelial Cells FEW /lpf (FEW) 10/05/17 16:21 Urine Bacteria 4+ /hpf (NONE SEEN) H 10/05/17 16:21 Salicylates < 25.0 mg/L (30.0-100.0) L 10/05/17 15:20 Urine Opiates Screen NEGATIVE (NEGATIVE) 10/05/17 16:21 Urine Methadone Screen NEGATIVE (NEGATIVE) 10/05/17 16:21 Acetaminophen < 10.0 ug/mL (10.0-30.0) L 10/05/17 15:20 Ur Barbiturates Screen NEGATIVE (NEGATIVE) 10/05/17 16:21 Ur Tricyclics Screen NEGATIVE (NEGATIVE) 10/05/17 16:21 Ur Phencyclidine Scrn NEGATIVE (NEGATIVE) 10/05/17 16:21 Amphetamines Screen NEGATIVE (NEGATIVE) 10/05/17 16:21 U Methamphetamines Scrn NEGATIVE (NEGATIVE) 10/05/17 16:21 U Benzodiazepines Scrn NEGATIVE (NEGATIVE) 10/05/17 16:21 U Cocaine Metab Screen NEGATIVE (NEGATIVE) 10/05/17 16:21 U Cannabinoids Screen NEGATIVE (NEGATIVE) 10/05/17 16:21 Ethyl Alcohol < 10 mg/dL (0-10) 10/05/17 15:20 RPR NONREACTIVE (NONREACTIVE) 10/05/17 15:20 - Physical Exam Vitals and I&O: Vital Signs Temp 97.9 F 10/08/17 06:06 Pulse 63 10/08/17 06:06 Resp 19 10/08/17 06:06 BP 116/70 10/08/17 06:06 Pulse Ox 100 10/08/17 06:06 Intake & Output 10/07/17 10/08/17 10/08/17 18:59 06:59 18:59 Intake Total 1500 500 Balance 1500 500 Intake: Oral 1500 500 Other: # Voids 3 4 # Bowel Movements 0 0 Active Medications: Current Medications Acetaminophen (Tylenol) 650 mg PO Q4HR PRN PRN Reason: Mild Pain / Temp above 100 Stop: 12/04/17 16:54 Al Hydrox/Mg Hydrox/Simethicone (Maalox) 30 ml PO Q4HR PRN PRN Reason: GI DISTRESS Stop: 12/04/17 16:54 Benztropine Mesylate (Cogentin) 1 mg PO BID CESIA Stop: 12/05/17 08:59 Last Admin: 10/08/17 09:04 Dose: Not Given Lorazepam (Ativan) 0.5 mg PO Q4HR PRN; Protocol PRN Reason: Anxiety Stop: 11/04/17 16:54 Magnesium Hydroxide (Milk Of Magnesia) 30 ml PO HS PRN PRN Reason: Constipation Quetiapine Fumarate (Seroquel) 100 mg PO HS CESIA; Protocol Stop: 12/04/17 20:59 General: demented HEENT: NC/AT, PERRLA Neck: Supple Lungs: CTAB Cardiovascular: RRR, Normal S1, Normal S2, without murmur Abdomen: soft, non-tender, non-distended, positive bowel sound Extremities: excoriation, contracture Internal Medicine Assmt/Plan - Assessment Assessment: - Assessment Assessment: agitation htn anemia schizophrenia - Plan Plan: fall precautions continue current plan of care - Plan Plan: monitor bp low na diet Nutritional Asmnt/Malnutr-PDOC - Dietary Evaluation Malnutrition Findings (Please click <Entered> for more info): Nutritional Asmnt/Malnutrition Start: 10/08/17 11: 51 Text: Status: Active Freq: Protocol: Document 10/08/17 11:51 LCTIFFANIEG (Rec: 10/08/17 11:56 LCTIFFANIEG [email or web address]) Nutritional Asmnt/Malnutrition Patient General Information Nutritional Screening Moderate Risk Diagnosis psychosis Pertinent Medical Hx/Surgical Hx HTN, anemia Subjective Information Per EMR, PO intake 100%. Current Diet Order/ Nutrition Support MICHELLE Pertinent Medications seroquel Pertinent Labs 10/05 Na 135, glucose 107, A1c 5.1 Nutritional Hx/Data Height 1.7 m Height (Calculated Centimeters) 170.2 Current Weight (lbs) 45.813 kg Weight (Calculated Kilograms) 45.8 Weight (Calculated Grams) 73710.8 [place] Body Weight 135 Body Mass Index (BMI) 15.7 Weight Status Underweight GI Symptoms GI Symptoms None Last BM none Difficult in: None Skin Integrity/Comment: intact Current %PO Good (75-100%) Estimated Nutritional Goals BEE in Kcals: Using Current wt Calories/Kcals/Kg 30-35 Kcals Calculated 6308-0862 Protein: Using Current wt Protein g/k.2 Protein Calculated 55 Fluid: ml 1380-1610ml (1ml/kcal) Nutritional Problem No current Nutrition Prob Problem N/A Intervention/Recommendation Comments 1. Continue with MICHELLE diet as ordered. 2. Monitor PO intake, wt, labs and skin integrity 3. F/U as Expected Outcomes/Goals Expected Outcomes/Goals 1. PO intake to meet at least 75% of nutritional needs. 2. Wt stability, skin to remain intact, labs to approach WNL.
--- NOTE | 2017-10-08 18:39 | Consultation ---
DATE OF CONSULTATION: 10/08/2017 REFERRING PHYSICIAN: Marisa Garza MD TYPE OF CONSULTATION: Psychology. HISTORY OF PRESENT ILLNESS: The patient is a 62-year-old female. The patient is a resident of [facility]. The patient is known to this verse writer from multiple previous hospitalizations. The patient is being admitted for acute agitation and psychosis as well as care refusal. The staff at the patient's facility report she had been easily agitated and became unwilling to comply with treatment. Staff reports episodes of screaming and yelling as well as striking out at the staff members. The patient was transferred here for stabilization. Upon interview, the patient presents as very resistive and easily agitated. The patient refused to answer the majority of the clinical interview questions. 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 This verbalization is part of her previous medical record as well. PAST MEDICAL HISTORY: Please see history and physical by Dr. Clayton. PAST PSYCHIATRIC HISTORY: The patient has a long history of schizoaffective disorder. The patient is under the care of a psychiatrist at her placement. SUBSTANCE ABUSE HISTORY: None. PSYCHOSOCIAL HISTORY: The patient did not answer questions about occupational or educational history or hoahaoism affiliation. She did not answer questions about history of physical or sexual abuse. She did not answer questions about current legal problems. The patient did not answer any questions about a support system or family involvement. MENTAL STATUS EXAMINATION: The patient appears to be her stated age. The patient's attitude is uncooperative. Eye contact is poor. Speech is pressured and loud. Mood is irritable. Affect is constricted. Thought process shows to be argumentative as well as markedly tangential. The patient did not answer questions about suicidal ideation, plan or intention. The patient did not answer questions about auditory or visual hallucinations. The patient is exhibiting paranoid ideation with palpable suspiciousness as well as possible grandiose delusions. The patient has no insight into her illness. The patient' s behavior is poorly redirectable. Impulse control is inadequate. Concentration is poor. Sensorium is alert and oriented to self and place. The patient did not participate in the memory assessment. She did not participate in the interpretation of proverbs. Insight is impaired. Judgment is impaired. DIAGNOSTIC IMPRESSION: AXIS I: History of schizoaffective disorder. AXIS II: Deferred. AXIS III: Per Dr. Clayton. TREATMENT PLAN: The patient has been seen by Dr. Garza for psychiatric evaluation and for the management of the patient's psychotropic medications. The patient is continued on Seroquel and being considered for Depakote according to the attending psychiatrist. We will provide supportive psychotherapy to include reality orientation, differentiation and integration. We will provide de-escalation as well as limit setting. We will encourage the patient to be able to demonstrate emotional and self-regulation. We will provide motivational enhancement for the patient to become compliant and stay compliant with all aspects of her care and treatment. We will provide coping strategies for chronic long-term severe mental illness as well. We will encourage the patient to verbally contract for safety, including no self-harm and no harm to others. Thank you, Dr. Garza, for this consult and the opportunity to participate with you in this patient's care. JOB# [id number] MTDD
--- NOTE | 2017-10-09 05:26 | Progress Notes ---
DATE: 10/08/2017 SUBJECTIVE: Staff was spoken to. The patient is interviewed. Mood is noted to be irritable. Affect is constricted. Insight and judgment are noted to be still impaired. Impulse control is noted to be limited. Coping skills are noted to be limited. The patient has been displaying acute mood swings and grandiose delusions are a major concern. The patient continues to be paranoid. The patient is currently on Seroquel 100 mg at bedtime and has been able to tolerate the medication. ASSESSMENT: The patient is still psychotic. PLAN: To continue the patient with the supportive therapy, encouraged the patient to verbalize the concerns rather than to act out. JOB# [id number]
[2017-10-09] MEDS: Multivitamin w/ Minerals Tab PO SCH (08:42)
[2017-10-09] MEDS: Benztropine 1 MG TAB PO SCH ×2 (08:42→16:23)
--- NOTE | 2017-10-09 14:26 | Internal Medicine Prog Note ---
Internal Medicine Subjective - Subjective Patient seen and examined:: with staff, chart reviewed Patient is:: awake, verbal, agitated, confused Per staff patient has:: no adverse event, no episodes of fall, poor appetite, noncompliant, tolerating meds Internal Medicine Objective - Results Result Diagrams: 10/05/17 15:20 10/05/17 15:20 Recent Labs: Laboratory Last Values WBC 7.6 Th/cmm (4.8-10.8) 10/05/17 15:20 RBC 3.93 Mil/cmm (3.80-5.10) 10/05/17 15:20 Hgb 13.0 gm/dL (12-16) 10/05/17 15:20 Hct 37.5 % (41.0-60) L 10/05/17 15:20 MCV 95.4 fl (81-100) 10/05/17 15:20 MCH 33.1 pg (27.0-31.0) H 10/05/17 15:20 MCHC Differential 34.7 pg (28.0-36.0) 10/05/17 15:20 RDW 13.2 % (11.5-20.0) 10/05/17 15:20 Plt Count 222 Th/cmm (150-400) 10/05/17 15:20 MPV 7.7 fl 10/05/17 15:20 Neutrophils % 52.4 % (40.0-80.0) 10/05/17 15:20 Lymphocytes % 36.0 % (20.0-50.0) 10/05/17 15:20 Monocytes % 8.1 % (2.0-10.0) 10/05/17 15:20 Eosinophils % 3.0 % (0.0-5.0) 10/05/17 15:20 Basophils % 0.5 % (0.0-2.0) 10/05/17 15:20 Sodium 135 mEq/L (136-145) L 10/05/17 15:20 Potassium 3.8 mEq/L (3.5-5.1) 10/05/17 15:20 Chloride 104 mEq/L (98-107) 10/05/17 15:20 Carbon Dioxide 27.0 mEq/L (21.0-31.0) 10/05/17 15:20 Anion Gap 7.8 (7.0-16.0) 10/05/17 15:20 BUN 10 mg/dL (7-25) 10/05/17 15:20 Creatinine 0.6 mg/dL (0.6-1.2) 10/05/17 15:20 Est GFR ( Amer) > 60.0 ml/min (>90) 10/05/17 15:20 Est GFR (Non-Af Amer) > 60.0 ml/min 10/05/17 15:20 BUN/Creatinine Ratio 16.7 10/05/17 15:20 Glucose 107 mg/dL (70-105) H 10/05/17 15:20 Hemoglobin A1c % 5.1 % (4.0-6.0) 10/05/17 15:20 Calcium 9.7 mg/dL (8.6-10.3) 10/05/17 15:20 Total Bilirubin 0.3 mg/dL (0.3-1.0) 10/05/17 15:20 AST 19 U/L (13-39) 10/05/17 15:20 ALT 13 U/L (7-52) 10/05/17 15:20 Alkaline Phosphatase 78 U/L (34-104) 10/05/17 15:20 Troponin I 0.04 ng/mL (0.01-0.05) 10/05/17 15:20 Total Protein 7.1 gm/dL (6.0-8.3) 10/05/17 15:20 Albumin 4.3 gm/dL (3.7-5.3) 10/05/17 15:20 Globulin 2.8 gm/dL 10/05/17 15:20 Albumin/Globulin Ratio 1.5 (1.0-1.8) 10/05/17 15:20 Triglycerides 219 mg/dL (<150) H 10/05/17 15:20 Cholesterol 168 mg/dL (<200) 10/05/17 15:20 LDL Cholesterol Direct 97 mg/dL (75-193) 10/05/17 15:20 HDL Cholesterol 44 mg/dL (23-92) 10/05/17 15:20 TSH 2.13 uIU/ml (0.34-5.60) 10/05/17 15:20 Urine Source CLEAN C 10/05/17 16:21 Urine Color YELLOW 10/05/17 16:21 Urine Clarity HAZY (CLEAR) 10/05/17 16:21 Urine pH 6.5 (4.6 - 8.0) 10/05/17 16:21 Ur Specific [place] <= 1.005 (1.005-1.030) 10/05/17 16:21 Urine Protein NEGATIVE mg/dL (NEGATIVE) 10/05/17 16:21 Urine Glucose (UA) NEGATIVE mg/dL (NEGATIVE) 10/05/17 16:21 Urine Ketones NEGATIVE mg/dL (NEGATIVE) 10/05/17 16:21 Urine Blood NEGATIVE (NEGATIVE) 10/05/17 16:21 Urine Nitrate POSITIVE (NEGATIVE) H 10/05/17 16:21 Urine Bilirubin NEGATIVE (NEGATIVE) 10/05/17 16:21 Urine Urobilinogen 0.2 E.U./dL (0.2 - 1.0) 10/05/17 16:21 Ur Leukocyte Esterase SMALL (NEGATIVE) H 10/05/17 16:21 Urine RBC 0-2 /hpf (0-5) 10/05/17 16:21 Urine WBC 2-5 /hpf (0-5) 10/05/17 16:21 Ur Epithelial Cells FEW /lpf (FEW) 10/05/17 16:21 Urine Bacteria 4+ /hpf (NONE SEEN) H 10/05/17 16:21 Salicylates < 25.0 mg/L (30.0-100.0) L 10/05/17 15:20 Urine Opiates Screen NEGATIVE (NEGATIVE) 10/05/17 16:21 Urine Methadone Screen NEGATIVE (NEGATIVE) 10/05/17 16:21 Acetaminophen < 10.0 ug/mL (10.0-30.0) L 10/05/17 15:20 Ur Barbiturates Screen NEGATIVE (NEGATIVE) 10/05/17 16:21 Ur Tricyclics Screen NEGATIVE (NEGATIVE) 10/05/17 16:21 Ur Phencyclidine Scrn NEGATIVE (NEGATIVE) 10/05/17 16:21 Amphetamines Screen NEGATIVE (NEGATIVE) 10/05/17 16:21 U Methamphetamines Scrn NEGATIVE (NEGATIVE) 10/05/17 16:21 U Benzodiazepines Scrn NEGATIVE (NEGATIVE) 10/05/17 16:21 U Cocaine Metab Screen NEGATIVE (NEGATIVE) 10/05/17 16:21 U Cannabinoids Screen NEGATIVE (NEGATIVE) 10/05/17 16:21 Ethyl Alcohol < 10 mg/dL (0-10) 10/05/17 15:20 RPR NONREACTIVE (NONREACTIVE) 10/05/17 15:20 - Physical Exam Vitals and I&O: Vital Signs Temp 97.3 F 10/09/17 14:06 Pulse 93 10/09/17 14:06 Resp 18 10/09/17 14:06 BP 90/59 10/09/17 14:06 Pulse Ox 97 10/09/17 14:06 Intake & Output 10/08/17 10/09/17 10/09/17 18:59 06:59 18:59 Intake Total 480 Balance 480 Intake: Oral 480 Other: # Voids 2 Active Medications: Current Medications Acetaminophen (Tylenol) 650 mg PO Q4HR PRN PRN Reason: Mild Pain / Temp above 100 Stop: 12/04/17 16:54 Al Hydrox/Mg Hydrox/Simethicone (Maalox) 30 ml PO Q4HR PRN PRN Reason: GI DISTRESS Stop: 12/04/17 16:54 Benztropine Mesylate (Cogentin) 1 mg PO BID CESIA Stop: 12/05/17 08:59 Last Admin: 10/09/17 08:42 Dose: 1 mg Lorazepam (Ativan) 0.5 mg PO Q4HR PRN; Protocol PRN Reason: Anxiety Stop: 11/04/17 16:54 Magnesium Hydroxide (Milk Of Magnesia) 30 ml PO HS PRN PRN Reason: Constipation Quetiapine Fumarate (Seroquel) 150 mg PO HS CESIA; Protocol Stop: 12/08/17 20:59 General: demented HEENT: NC/AT, PERRLA Neck: Supple Lungs: CTAB Cardiovascular: RRR, Normal S1, Normal S2, without murmur Abdomen: soft, non-tender, non-distended, positive bowel sound Extremities: excoriation, contracture Internal Medicine Assmt/Plan - Assessment Assessment: - Assessment Assessment: agitation htn anemia schizophrenia - Plan Plan: fall precautions continue current plan of care - Plan Plan: monitor bp low na diet Nutritional Asmnt/Malnutr-PDOC - Dietary Evaluation Malnutrition Findings (Please click <Entered> for more info): Nutritional Asmnt/Malnutrition Start: 10/08/17 11: 51 Text: Status: Active Freq: Protocol: Document 10/09/17 10:11 JUANI (Rec: 10/09/17 10:39 JUANI MICHELLE- [email or web address]) Nutritional Asmnt/Malnutrition Patient General Information Nutritional Screening Moderate Risk Diagnosis Psychosis Pertinent Medical Hx/Surgical Hx HTN, anemia Subjective Information Patient was admitted from halfway. Current Diet Order/ Nutrition Support 4gm sodium (no added salt) Patient / S.O Not Indicated Pertinent Medications Maalox, MOm Pertinent Labs TAG 219 Nutritional Hx/Data Height 1.7 m Height (Calculated Centimeters) 170.2 Current Weight (lbs) 45.813 kg Weight (Calculated Kilograms) 45.8 Weight (Calculated Grams) 87020.8 [place] Body Weight 135 % [place] Body Weight 75 Body Mass Index (BMI) 15.7 Recent Weight Change No Weight Status Underweight GI Symptoms GI Symptoms None Last BM none noted in EMR since admission Difficult in: None Food Allergies No Cultural/Ethnic/Sikh Belief none indicated Usual diet at home unknown Skin Integrity/Comment: valeria 21, intact Current %PO Good (75-100%) Estimated Nutritional Goals BEE in Kcals: Adj wt of IBW Calories/Kcals/Kg 30-35 kcal/kg using IBW 61.3kg Kcals Calculated 1595-7336 kcal/day Protein: Adj wt of IBW Protein g/k.8-1 gm/kg using IBW Protein Calculated 50-60 gm/day Fluid: ml 8404-5744 ml/day (1 ml/kca) Nutritional Problem 1. Problem Problem Underweight related to Etiology possible inadequate intake prior to admission aeb Signs/Symptoms: BMI 15.8, 75% IBW Intervention/Recommendation Comments 1. Continue 4gm sodium diet as tolerated by patient due to patient's history of HTN. May liberalize diet to regular to increase dietary options and increase caloric intake. 2. Oral intake is adequate - current diet is meeting 100% of nutrient needs. If patient does not gain weight, consider adding Ensure Enlive with meals as supplemental calories . 3. F/U in 3-5 days as MR 10/12- Expected Outcomes/Goals Expected Outcomes/Goals oral intake >75% of meals, weight trend toward IBW, nutrition related labs WNL
--- NOTE | 2017-10-09 16:40 | Progress Notes ---
DATE: 10/09/2017 SUBJECTIVE: Staff was spoken to. The patient is interviewed. Mood is noted to be irritable. Affect is constricted. Insight and judgment are very much impaired. Impulse control is noted to be limited. The patient has grandiose delusions. One minute, the patient is stating that she ____ next minute, she is saying she is a doctor. The patient has no insight into her illness. The patient is currently on 100 mg b.i.d. on the Seroquel and I am planning to increase it to 150 mg tonight and plan to gradually increase the dose. The patient is refusing to take any other medications apart from Seroquel and even though the patient has been suggested to be on the mood stabilizer. The patient does not seem to be understanding the need for it. ASSESSMENT: The patient is still psychotic. PLAN: To continue the patient with current adjustment of medications and followup. JOB# [id number]
[2017-10-10] MEDS: Multivitamin w/ Minerals Tab PO SCH (08:51)
[2017-10-10] MEDS: Benztropine 1 MG TAB PO SCH ×2 (08:52→16:53)
--- NOTE | 2017-10-10 13:42 | Internal Medicine Prog Note ---
Internal Medicine Subjective - Subjective Patient seen and examined:: with staff, chart reviewed Patient is:: awake, verbal, agitated, confused Per staff patient has:: no adverse event, no episodes of fall, poor appetite, noncompliant, tolerating meds Internal Medicine Objective - Results Result Diagrams: 10/05/17 15:20 10/05/17 15:20 Recent Labs: Laboratory Last Values WBC 7.6 Th/cmm (4.8-10.8) 10/05/17 15:20 RBC 3.93 Mil/cmm (3.80-5.10) 10/05/17 15:20 Hgb 13.0 gm/dL (12-16) 10/05/17 15:20 Hct 37.5 % (41.0-60) L 10/05/17 15:20 MCV 95.4 fl (81-100) 10/05/17 15:20 MCH 33.1 pg (27.0-31.0) H 10/05/17 15:20 MCHC Differential 34.7 pg (28.0-36.0) 10/05/17 15:20 RDW 13.2 % (11.5-20.0) 10/05/17 15:20 Plt Count 222 Th/cmm (150-400) 10/05/17 15:20 MPV 7.7 fl 10/05/17 15:20 Neutrophils % 52.4 % (40.0-80.0) 10/05/17 15:20 Lymphocytes % 36.0 % (20.0-50.0) 10/05/17 15:20 Monocytes % 8.1 % (2.0-10.0) 10/05/17 15:20 Eosinophils % 3.0 % (0.0-5.0) 10/05/17 15:20 Basophils % 0.5 % (0.0-2.0) 10/05/17 15:20 Sodium 135 mEq/L (136-145) L 10/05/17 15:20 Potassium 3.8 mEq/L (3.5-5.1) 10/05/17 15:20 Chloride 104 mEq/L (98-107) 10/05/17 15:20 Carbon Dioxide 27.0 mEq/L (21.0-31.0) 10/05/17 15:20 Anion Gap 7.8 (7.0-16.0) 10/05/17 15:20 BUN 10 mg/dL (7-25) 10/05/17 15:20 Creatinine 0.6 mg/dL (0.6-1.2) 10/05/17 15:20 Est GFR ( Amer) > 60.0 ml/min (>90) 10/05/17 15:20 Est GFR (Non-Af Amer) > 60.0 ml/min 10/05/17 15:20 BUN/Creatinine Ratio 16.7 10/05/17 15:20 Glucose 107 mg/dL (70-105) H 10/05/17 15:20 Hemoglobin A1c % 5.1 % (4.0-6.0) 10/05/17 15:20 Calcium 9.7 mg/dL (8.6-10.3) 10/05/17 15:20 Total Bilirubin 0.3 mg/dL (0.3-1.0) 10/05/17 15:20 AST 19 U/L (13-39) 10/05/17 15:20 ALT 13 U/L (7-52) 10/05/17 15:20 Alkaline Phosphatase 78 U/L (34-104) 10/05/17 15:20 Troponin I 0.04 ng/mL (0.01-0.05) 10/05/17 15:20 Total Protein 7.1 gm/dL (6.0-8.3) 10/05/17 15:20 Albumin 4.3 gm/dL (3.7-5.3) 10/05/17 15:20 Globulin 2.8 gm/dL 10/05/17 15:20 Albumin/Globulin Ratio 1.5 (1.0-1.8) 10/05/17 15:20 Triglycerides 219 mg/dL (<150) H 10/05/17 15:20 Cholesterol 168 mg/dL (<200) 10/05/17 15:20 LDL Cholesterol Direct 97 mg/dL (75-193) 10/05/17 15:20 HDL Cholesterol 44 mg/dL (23-92) 10/05/17 15:20 TSH 2.13 uIU/ml (0.34-5.60) 10/05/17 15:20 Urine Source CLEAN C 10/05/17 16:21 Urine Color YELLOW 10/05/17 16:21 Urine Clarity HAZY (CLEAR) 10/05/17 16:21 Urine pH 6.5 (4.6 - 8.0) 10/05/17 16:21 Ur Specific [place] <= 1.005 (1.005-1.030) 10/05/17 16:21 Urine Protein NEGATIVE mg/dL (NEGATIVE) 10/05/17 16:21 Urine Glucose (UA) NEGATIVE mg/dL (NEGATIVE) 10/05/17 16:21 Urine Ketones NEGATIVE mg/dL (NEGATIVE) 10/05/17 16:21 Urine Blood NEGATIVE (NEGATIVE) 10/05/17 16:21 Urine Nitrate POSITIVE (NEGATIVE) H 10/05/17 16:21 Urine Bilirubin NEGATIVE (NEGATIVE) 10/05/17 16:21 Urine Urobilinogen 0.2 E.U./dL (0.2 - 1.0) 10/05/17 16:21 Ur Leukocyte Esterase SMALL (NEGATIVE) H 10/05/17 16:21 Urine RBC 0-2 /hpf (0-5) 10/05/17 16:21 Urine WBC 2-5 /hpf (0-5) 10/05/17 16:21 Ur Epithelial Cells FEW /lpf (FEW) 10/05/17 16:21 Urine Bacteria 4+ /hpf (NONE SEEN) H 10/05/17 16:21 Salicylates < 25.0 mg/L (30.0-100.0) L 10/05/17 15:20 Urine Opiates Screen NEGATIVE (NEGATIVE) 10/05/17 16:21 Urine Methadone Screen NEGATIVE (NEGATIVE) 10/05/17 16:21 Acetaminophen < 10.0 ug/mL (10.0-30.0) L 10/05/17 15:20 Ur Barbiturates Screen NEGATIVE (NEGATIVE) 10/05/17 16:21 Ur Tricyclics Screen NEGATIVE (NEGATIVE) 10/05/17 16:21 Ur Phencyclidine Scrn NEGATIVE (NEGATIVE) 10/05/17 16:21 Amphetamines Screen NEGATIVE (NEGATIVE) 10/05/17 16:21 U Methamphetamines Scrn NEGATIVE (NEGATIVE) 10/05/17 16:21 U Benzodiazepines Scrn NEGATIVE (NEGATIVE) 10/05/17 16:21 U Cocaine Metab Screen NEGATIVE (NEGATIVE) 10/05/17 16:21 U Cannabinoids Screen NEGATIVE (NEGATIVE) 10/05/17 16:21 Ethyl Alcohol < 10 mg/dL (0-10) 10/05/17 15:20 RPR NONREACTIVE (NONREACTIVE) 10/05/17 15:20 - Physical Exam Vitals and I&O: Vital Signs Temp 97.9 F 10/10/17 07:15 Pulse 69 10/10/17 07:15 Resp 20 10/10/17 07:15 BP 93/60 10/10/17 07:15 Pulse Ox 98 10/10/17 07:15 Intake & Output 10/09/17 10/10/17 10/10/17 18:59 06:59 18:59 Intake Total 1500 500 Balance 1500 500 Intake: Oral 1500 500 Other: # Voids 3 3 # Bowel Movements 0 0 Active Medications: Current Medications Acetaminophen (Tylenol) 650 mg PO Q4HR PRN PRN Reason: Mild Pain / Temp above 100 Stop: 12/04/17 16:54 Al Hydrox/Mg Hydrox/Simethicone (Maalox) 30 ml PO Q4HR PRN PRN Reason: GI DISTRESS Stop: 12/04/17 16:54 Benztropine Mesylate (Cogentin) 1 mg PO BID CESIA Stop: 12/05/17 08:59 Last Admin: 10/10/17 08:52 Dose: 1 mg Lorazepam (Ativan) 0.5 mg PO Q4HR PRN; Protocol PRN Reason: Anxiety Stop: 11/04/17 16:54 Magnesium Hydroxide (Milk Of Magnesia) 30 ml PO HS PRN PRN Reason: Constipation Quetiapine Fumarate (Seroquel) 200 mg PO HS CESIA; Protocol Stop: 12/09/17 20:59 General: demented HEENT: NC/AT, PERRLA Neck: Supple Lungs: CTAB Cardiovascular: RRR, Normal S1, Normal S2, without murmur Abdomen: soft, non-tender, non-distended, positive bowel sound Extremities: excoriation, contracture Internal Medicine Assmt/Plan - Assessment Assessment: - Assessment Assessment: agitation htn anemia schizophrenia - Plan Plan: fall precautions continue current plan of care - Plan Plan: monitor bp low na diet Nutritional Asmnt/Malnutr-PDOC - Dietary Evaluation Malnutrition Findings (Please click <Entered> for more info): Nutritional Asmnt/Malnutrition Start: 10/08/17 11: 51 Text: Status: Complete Freq: Protocol: Document 10/09/17 10:11 JUANI (Rec: 10/09/17 10:39 JUANI MICHELLE- [email or web address]) Nutritional Asmnt/Malnutrition Patient General Information Nutritional Screening Moderate Risk Diagnosis Psychosis Pertinent Medical Hx/Surgical Hx HTN, anemia Subjective Information Patient was admitted from [facility]. Patient asleep at time of visit. Current Diet Order/ Nutrition Support 4gm sodium (no added salt) Patient / S.O Not Indicated Pertinent Medications Maalox, MOm Pertinent Labs TAG 219 Nutritional Hx/Data Height 1.7 m Height (Calculated Centimeters) 170.2 Current Weight (lbs) 45.813 kg Weight (Calculated Kilograms) 45.8 Weight (Calculated Grams) 63989.8 [place] Body Weight 135 % [place] Body Weight 75 Body Mass Index (BMI) 15.7 Recent Weight Change No Weight Status Underweight GI Symptoms GI Symptoms None Last BM none noted in EMR since admission Difficult in: None Food Allergies No Cultural/Ethnic/Quaker Belief none indicated Usual diet at home unknown Skin Integrity/Comment: valeria 21, intact Current %PO Good (75-100%) Estimated Nutritional Goals BEE in Kcals: Adj wt of IBW Calories/Kcals/Kg 30-35 kcal/kg using IBW 61.3kg Kcals Calculated 6175-2326 kcal/day Protein: Adj wt of IBW Protein g/k.8-1 gm/kg using IBW Protein Calculated 50-60 gm/day Fluid: ml 4060-6306 ml/day (1 ml/kca) Nutritional Problem 1. Problem Problem Underweight related to Etiology possible inadequate intake prior to admission aeb Signs/Symptoms: BMI 15.8, 75% IBW Intervention/Recommendation Comments 1. Continue 4gm sodium diet as tolerated by patient due to patient's history of HTN. May liberalize diet to regular to increase dietary options and increase caloric intake. 2. Oral intake is adequate - current diet is meeting 100% of nutrient needs. If patient does not gain weight, consider adding Ensure Enlive with meals as supplemental calories . 3. F/U in 3-5 days as MR 10/12- Expected Outcomes/Goals Expected Outcomes/Goals oral intake >75% of meals, weight trend toward IBW, nutrition related labs WNL
--- NOTE | 2017-10-10 17:16 | Progress Notes ---
DATE: 10/10/2017 SUBJECTIVE: Staff was spoken to. The patient is interviewed. Mood is noted to be irritable. Affect is constricted. The patient continues to be grossly psychotic. Insight are noted to be still impaired. Impulse control is noted to be limited. The patient continues to present with grandiose as well as paranoid delusions. The patient coping skills problems are noted to be extremely poor. The patient is reluctant to comply with any of the other medications except for the Seroquel and hence is going to be gradually increased to 100 mg and the patient is going to be followed up with the supportive therapy. The patient is not ready to be discharged to a lower level of care at this time. [facility]# [id number]
[2017-10-11] MEDS: Multivitamin w/ Minerals Tab PO SCH (09:20)
[2017-10-11] MEDS: Benztropine 1 MG TAB PO SCH ×2 (09:20→17:46)
--- NOTE | 2017-10-11 14:38 | Internal Medicine Prog Note ---
Internal Medicine Subjective - Subjective Service Date: 10/11/17 Patient is:: awake, verbal, agitated, confused Per staff patient has:: no adverse event, no episodes of fall, poor appetite, noncompliant, tolerating meds Internal Medicine Objective - Results Result Diagrams: 10/05/17 15:20 10/05/17 15:20 Recent Labs: Laboratory Last Values WBC 7.6 Th/cmm (4.8-10.8) 10/05/17 15:20 RBC 3.93 Mil/cmm (3.80-5.10) 10/05/17 15:20 Hgb 13.0 gm/dL (12-16) 10/05/17 15:20 Hct 37.5 % (41.0-60) L 10/05/17 15:20 MCV 95.4 fl (81-100) 10/05/17 15:20 MCH 33.1 pg (27.0-31.0) H 10/05/17 15:20 MCHC Differential 34.7 pg (28.0-36.0) 10/05/17 15:20 RDW 13.2 % (11.5-20.0) 10/05/17 15:20 Plt Count 222 Th/cmm (150-400) 10/05/17 15:20 MPV 7.7 fl 10/05/17 15:20 Neutrophils % 52.4 % (40.0-80.0) 10/05/17 15:20 Lymphocytes % 36.0 % (20.0-50.0) 10/05/17 15:20 Monocytes % 8.1 % (2.0-10.0) 10/05/17 15:20 Eosinophils % 3.0 % (0.0-5.0) 10/05/17 15:20 Basophils % 0.5 % (0.0-2.0) 10/05/17 15:20 Sodium 135 mEq/L (136-145) L 10/05/17 15:20 Potassium 3.8 mEq/L (3.5-5.1) 10/05/17 15:20 Chloride 104 mEq/L (98-107) 10/05/17 15:20 Carbon Dioxide 27.0 mEq/L (21.0-31.0) 10/05/17 15:20 Anion Gap 7.8 (7.0-16.0) 10/05/17 15:20 BUN 10 mg/dL (7-25) 10/05/17 15:20 Creatinine 0.6 mg/dL (0.6-1.2) 10/05/17 15:20 Est GFR ( Amer) > 60.0 ml/min (>90) 10/05/17 15:20 Est GFR (Non-Af Amer) > 60.0 ml/min 10/05/17 15:20 BUN/Creatinine Ratio 16.7 10/05/17 15:20 Glucose 107 mg/dL (70-105) H 10/05/17 15:20 Hemoglobin A1c % 5.1 % (4.0-6.0) 10/05/17 15:20 Calcium 9.7 mg/dL (8.6-10.3) 10/05/17 15:20 Total Bilirubin 0.3 mg/dL (0.3-1.0) 10/05/17 15:20 AST 19 U/L (13-39) 10/05/17 15:20 ALT 13 U/L (7-52) 10/05/17 15:20 Alkaline Phosphatase 78 U/L (34-104) 10/05/17 15:20 Troponin I 0.04 ng/mL (0.01-0.05) 10/05/17 15:20 Total Protein 7.1 gm/dL (6.0-8.3) 10/05/17 15:20 Albumin 4.3 gm/dL (3.7-5.3) 10/05/17 15:20 Globulin 2.8 gm/dL 10/05/17 15:20 Albumin/Globulin Ratio 1.5 (1.0-1.8) 10/05/17 15:20 Triglycerides 219 mg/dL (<150) H 10/05/17 15:20 Cholesterol 168 mg/dL (<200) 10/05/17 15:20 LDL Cholesterol Direct 97 mg/dL (75-193) 10/05/17 15:20 HDL Cholesterol 44 mg/dL (23-92) 10/05/17 15:20 TSH 2.13 uIU/ml (0.34-5.60) 10/05/17 15:20 Urine Source CLEAN C 10/05/17 16:21 Urine Color YELLOW 10/05/17 16:21 Urine Clarity HAZY (CLEAR) 10/05/17 16:21 Urine pH 6.5 (4.6 - 8.0) 10/05/17 16:21 Ur Specific [place] <= 1.005 (1.005-1.030) 10/05/17 16:21 Urine Protein NEGATIVE mg/dL (NEGATIVE) 10/05/17 16:21 Urine Glucose (UA) NEGATIVE mg/dL (NEGATIVE) 10/05/17 16:21 Urine Ketones NEGATIVE mg/dL (NEGATIVE) 10/05/17 16:21 Urine Blood NEGATIVE (NEGATIVE) 10/05/17 16:21 Urine Nitrate POSITIVE (NEGATIVE) H 10/05/17 16:21 Urine Bilirubin NEGATIVE (NEGATIVE) 10/05/17 16:21 Urine Urobilinogen 0.2 E.U./dL (0.2 - 1.0) 10/05/17 16:21 Ur Leukocyte Esterase SMALL (NEGATIVE) H 10/05/17 16:21 Urine RBC 0-2 /hpf (0-5) 10/05/17 16:21 Urine WBC 2-5 /hpf (0-5) 10/05/17 16:21 Ur Epithelial Cells FEW /lpf (FEW) 10/05/17 16:21 Urine Bacteria 4+ /hpf (NONE SEEN) H 10/05/17 16:21 Salicylates < 25.0 mg/L (30.0-100.0) L 10/05/17 15:20 Urine Opiates Screen NEGATIVE (NEGATIVE) 10/05/17 16:21 Urine Methadone Screen NEGATIVE (NEGATIVE) 10/05/17 16:21 Acetaminophen < 10.0 ug/mL (10.0-30.0) L 10/05/17 15:20 Ur Barbiturates Screen NEGATIVE (NEGATIVE) 10/05/17 16:21 Ur Tricyclics Screen NEGATIVE (NEGATIVE) 10/05/17 16:21 Ur Phencyclidine Scrn NEGATIVE (NEGATIVE) 10/05/17 16:21 Amphetamines Screen NEGATIVE (NEGATIVE) 10/05/17 16:21 U Methamphetamines Scrn NEGATIVE (NEGATIVE) 10/05/17 16:21 U Benzodiazepines Scrn NEGATIVE (NEGATIVE) 10/05/17 16:21 U Cocaine Metab Screen NEGATIVE (NEGATIVE) 10/05/17 16:21 U Cannabinoids Screen NEGATIVE (NEGATIVE) 10/05/17 16:21 Ethyl Alcohol < 10 mg/dL (0-10) 10/05/17 15:20 RPR NONREACTIVE (NONREACTIVE) 10/05/17 15:20 - Physical Exam Vitals and I&O: Vital Signs Temp 98.4 F 10/11/17 14:24 Pulse 56 10/11/17 14:24 Resp 20 10/11/17 14:24 BP 109/78 10/11/17 14:24 Pulse Ox 98 10/11/17 14:24 Active Medications: Current Medications Acetaminophen (Tylenol) 650 mg PO Q4HR PRN PRN Reason: Mild Pain / Temp above 100 Stop: 12/04/17 16:54 Al Hydrox/Mg Hydrox/Simethicone (Maalox) 30 ml PO Q4HR PRN PRN Reason: GI DISTRESS Stop: 12/04/17 16:54 Benztropine Mesylate (Cogentin) 1 mg PO BID CESIA Stop: 12/05/17 08:59 Last Admin: 10/11/17 09:20 Dose: 1 mg Lorazepam (Ativan) 0.5 mg PO Q4HR PRN; Protocol PRN Reason: Anxiety Stop: 11/04/17 16:54 Magnesium Hydroxide (Milk Of Magnesia) 30 ml PO HS PRN PRN Reason: Constipation Quetiapine Fumarate (Seroquel) 200 mg PO HS CESIA; Protocol Stop: 12/09/17 20:59 Last Admin: 10/10/17 20:42 Dose: 200 mg General: demented HEENT: NC/AT, PERRLA Neck: Supple Lungs: CTAB Cardiovascular: RRR, Normal S1, Normal S2, without murmur Abdomen: soft, non-tender, non-distended, positive bowel sound Extremities: excoriation, contracture Internal Medicine Assmt/Plan - Assessment Assessment: agitation htn anemia schizophrenia - Plan Plan: fall precautions continue current plan of care Nutritional Asmnt/Malnutr-PDOC - Dietary Evaluation Malnutrition Findings (Please click <Entered> for more info): Nutritional Asmnt/Malnutrition Start: 10/08/17 11: 51 Text: Status: Complete Freq: Protocol: Document 10/09/17 10:11 MMULCOLLEEN (Rec: 10/09/17 10:39 MMHÉCTOR MARTINEZ- [id number]) Nutritional Asmnt/Malnutrition Patient General Information Nutritional Screening Moderate Risk Diagnosis Psychosis Pertinent Medical Hx/Surgical Hx HTN, anemia Subjective Information Patient was admitted [facility]. Patient asleep at time of visit. Current Diet Order/ Nutrition Support 4gm sodium (no added salt) Patient / S.O Not Indicated Pertinent Medications Maalox, MOm Pertinent Labs TAG 219 Nutritional Hx/Data Height 5 ft 7 in Height (Calculated Centimeters) 170.2 Current Weight (lbs) 101 lb Weight (Calculated Kilograms) 45.8 Weight (Calculated Grams) 38984.8 [place] Body Weight 135 % [place] Body Weight 75 Body Mass Index (BMI) 15.7 Recent Weight Change No Weight Status Underweight GI Symptoms GI Symptoms None Last BM none noted in EMR since admission Difficult in: None Food Allergies No Cultural/Ethnic/Scientology Belief none indicated Usual diet at home unknown Skin Integrity/Comment: valeria 21, intact Current %PO Good (75-100%) Estimated Nutritional Goals BEE in Kcals: Adj wt of IBW Calories/Kcals/Kg 30-35 kcal/kg using IBW 61.3kg Kcals Calculated 5360-7289 kcal/day Protein: Adj wt of IBW Protein g/k.8-1 gm/kg using IBW Protein Calculated 50-60 gm/day Fluid: ml 9442-5049 ml/day (1 ml/kca) Nutritional Problem 1. Problem Problem Underweight related to Etiology possible inadequate intake prior to admission aeb Signs/Symptoms: BMI 15.8, 75% IBW Intervention/Recommendation Comments 1. Continue 4gm sodium diet as tolerated by patient due to patient's history of HTN. May liberalize diet to regular to increase dietary options and increase caloric intake. 2. Oral intake is adequate - current diet is meeting 100% of nutrient needs. If patient does not gain weight, consider adding Ensure Enlive with meals as supplemental calories . 3. F/U in 3-5 days as MR 10/12- Expected Outcomes/Goals Expected Outcomes/Goals oral intake >75% of meals, weight trend toward IBW, nutrition related labs WNL
--- NOTE | 2017-10-12 02:24 | Progress Notes ---
DATE: 10/11/2017 PSYCHIATRIC PROGRESS NOTE SUBJECTIVE: Staff was spoken to. The patient is interviewed. Mood is noted to be irritable. Affect is constricted. Insight and judgment are noted to be impaired. Impulse control is noted to be limited. Coping skills are also noted to be limited. The patient has been having difficult time to verbalize the concerns. The patient has been still noted to be very grandiose. The patient is still saying that she is Dr. Dubois and she should not be on any medications. ASSESSMENT: The patient is still grossly psychotic. PLAN: To continue the patient with supportive therapy. I encouraged the patient to verbalize the concerns rather than to act out. JOB# [id number]
[2017-10-12] MEDS: Benztropine 1 MG TAB PO SCH ×2 (09:14→16:42)
[2017-10-12] MEDS: Multivitamin w/ Minerals Tab PO SCH (09:14)
--- NOTE | 2017-10-12 10:44 | Discharge Summary ---
DATE OF DISCHARGE: 10/12/2017 IDENTIFYING DATA: The patient is a 62-year-old woman, resident of [facility]. JUSTIFICATION OF HOSPITALIZATION: The patient is admitted for acute agitation and psychosis. CHIEF COMPLAINT: "Leave me alone. 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 DIAGNOSES AT THE TIME OF ADMISSION: AXIS I: Schizoaffective disorder. AXIS II: None. AXIS III: As per Dr. Clayton. HISTORY OF PRESENT ILLNESS: Please refer the 10/06/2017 dictation done by me. Physical examination was done by Dr. Clayton and is noted to be within normal limits. Lab studies throughout the hospitalization have been reviewed and the hematocrit is noted to be 37.5 and sodium was 135, glucose was noted 107 and triglycerides 219 and cholesterol 168. HOSPITAL COURSE AND RESPONSE TO TREATMENT: The patient has been closely monitored on the inpatient unit, provided with supportive psychotherapy. The patient has been encouraged to verbalize the concerns rather than to act out and the patient has been continued on the Seroquel, which was gradually increased to 200 mg at bedtime. The patient has been able to tolerate. No aggressive behavior was noted. However, the patient continued to be paranoid. The patient was discharged on 10/12/2017 with recommendation that she is going to be seeking treatment on an outpatient basis. MENTAL STATUS EXAMINATION: At the time of discharge, the patient's mood is noted to be anxious. Affect is appropriate. Not suicidal or homicidal. The patient's coping skills are noted to be improving. Insight and judgment are also noted to be improving. ASSESSMENT: The patient is stabilizing. Plan to discharge the patient today for followup on outpatient basis. DIAGNOSES AT THE TIME OF DISCHARGE: AXIS I: Schizoaffective disorder. AXIS II: None. AXIS III: None. AFTERCARE PLAN: The patient is discharged to [facility] for further followup. [facility]# [id number]
[2017-10-12] MEDS ORDERED: Haloperidol Lactate 5 mg/mL 1mL Vial IM ONE (14:11)
--- NOTE | 2017-10-12 15:11 | Internal Medicine Prog Note ---
Internal Medicine Subjective - Subjective Service Date: 10/12/17 Patient is:: awake, verbal, agitated, confused Per staff patient has:: no adverse event, no episodes of fall, poor appetite, noncompliant, tolerating meds Internal Medicine Objective - Results Result Diagrams: 10/05/17 15:20 10/05/17 15:20 Recent Labs: Laboratory Last Values WBC 7.6 Th/cmm (4.8-10.8) 10/05/17 15:20 RBC 3.93 Mil/cmm (3.80-5.10) 10/05/17 15:20 Hgb 13.0 gm/dL (12-16) 10/05/17 15:20 Hct 37.5 % (41.0-60) L 10/05/17 15:20 MCV 95.4 fl (81-100) 10/05/17 15:20 MCH 33.1 pg (27.0-31.0) H 10/05/17 15:20 MCHC Differential 34.7 pg (28.0-36.0) 10/05/17 15:20 RDW 13.2 % (11.5-20.0) 10/05/17 15:20 Plt Count 222 Th/cmm (150-400) 10/05/17 15:20 MPV 7.7 fl 10/05/17 15:20 Neutrophils % 52.4 % (40.0-80.0) 10/05/17 15:20 Lymphocytes % 36.0 % (20.0-50.0) 10/05/17 15:20 Monocytes % 8.1 % (2.0-10.0) 10/05/17 15:20 Eosinophils % 3.0 % (0.0-5.0) 10/05/17 15:20 Basophils % 0.5 % (0.0-2.0) 10/05/17 15:20 Sodium 135 mEq/L (136-145) L 10/05/17 15:20 Potassium 3.8 mEq/L (3.5-5.1) 10/05/17 15:20 Chloride 104 mEq/L (98-107) 10/05/17 15:20 Carbon Dioxide 27.0 mEq/L (21.0-31.0) 10/05/17 15:20 Anion Gap 7.8 (7.0-16.0) 10/05/17 15:20 BUN 10 mg/dL (7-25) 10/05/17 15:20 Creatinine 0.6 mg/dL (0.6-1.2) 10/05/17 15:20 Est GFR ( Amer) > 60.0 ml/min (>90) 10/05/17 15:20 Est GFR (Non-Af Amer) > 60.0 ml/min 10/05/17 15:20 BUN/Creatinine Ratio 16.7 10/05/17 15:20 Glucose 107 mg/dL (70-105) H 10/05/17 15:20 Hemoglobin A1c % 5.1 % (4.0-6.0) 10/05/17 15:20 Calcium 9.7 mg/dL (8.6-10.3) 10/05/17 15:20 Total Bilirubin 0.3 mg/dL (0.3-1.0) 10/05/17 15:20 AST 19 U/L (13-39) 10/05/17 15:20 ALT 13 U/L (7-52) 10/05/17 15:20 Alkaline Phosphatase 78 U/L (34-104) 10/05/17 15:20 Troponin I 0.04 ng/mL (0.01-0.05) 10/05/17 15:20 Total Protein 7.1 gm/dL (6.0-8.3) 10/05/17 15:20 Albumin 4.3 gm/dL (3.7-5.3) 10/05/17 15:20 Globulin 2.8 gm/dL 10/05/17 15:20 Albumin/Globulin Ratio 1.5 (1.0-1.8) 10/05/17 15:20 Triglycerides 219 mg/dL (<150) H 10/05/17 15:20 Cholesterol 168 mg/dL (<200) 10/05/17 15:20 LDL Cholesterol Direct 97 mg/dL (75-193) 10/05/17 15:20 HDL Cholesterol 44 mg/dL (23-92) 10/05/17 15:20 TSH 2.13 uIU/ml (0.34-5.60) 10/05/17 15:20 Urine Source CLEAN C 10/05/17 16:21 Urine Color YELLOW 10/05/17 16:21 Urine Clarity HAZY (CLEAR) 10/05/17 16:21 Urine pH 6.5 (4.6 - 8.0) 10/05/17 16:21 Ur Specific [place] <= 1.005 (1.005-1.030) 10/05/17 16:21 Urine Protein NEGATIVE mg/dL (NEGATIVE) 10/05/17 16:21 Urine Glucose (UA) NEGATIVE mg/dL (NEGATIVE) 10/05/17 16:21 Urine Ketones NEGATIVE mg/dL (NEGATIVE) 10/05/17 16:21 Urine Blood NEGATIVE (NEGATIVE) 10/05/17 16:21 Urine Nitrate POSITIVE (NEGATIVE) H 10/05/17 16:21 Urine Bilirubin NEGATIVE (NEGATIVE) 10/05/17 16:21 Urine Urobilinogen 0.2 E.U./dL (0.2 - 1.0) 10/05/17 16:21 Ur Leukocyte Esterase SMALL (NEGATIVE) H 10/05/17 16:21 Urine RBC 0-2 /hpf (0-5) 10/05/17 16:21 Urine WBC 2-5 /hpf (0-5) 10/05/17 16:21 Ur Epithelial Cells FEW /lpf (FEW) 10/05/17 16:21 Urine Bacteria 4+ /hpf (NONE SEEN) H 10/05/17 16:21 Salicylates < 25.0 mg/L (30.0-100.0) L 10/05/17 15:20 Urine Opiates Screen NEGATIVE (NEGATIVE) 10/05/17 16:21 Urine Methadone Screen NEGATIVE (NEGATIVE) 10/05/17 16:21 Acetaminophen < 10.0 ug/mL (10.0-30.0) L 10/05/17 15:20 Ur Barbiturates Screen NEGATIVE (NEGATIVE) 10/05/17 16:21 Ur Tricyclics Screen NEGATIVE (NEGATIVE) 10/05/17 16:21 Ur Phencyclidine Scrn NEGATIVE (NEGATIVE) 10/05/17 16:21 Amphetamines Screen NEGATIVE (NEGATIVE) 10/05/17 16:21 U Methamphetamines Scrn NEGATIVE (NEGATIVE) 10/05/17 16:21 U Benzodiazepines Scrn NEGATIVE (NEGATIVE) 10/05/17 16:21 U Cocaine Metab Screen NEGATIVE (NEGATIVE) 10/05/17 16:21 U Cannabinoids Screen NEGATIVE (NEGATIVE) 10/05/17 16:21 Ethyl Alcohol < 10 mg/dL (0-10) 10/05/17 15:20 RPR NONREACTIVE (NONREACTIVE) 10/05/17 15:20 - Physical Exam Vitals and I&O: Vital Signs Temp 98.4 F 10/12/17 14:22 Pulse 90 10/12/17 14:22 Resp 20 10/12/17 14:22 BP 138/80 10/12/17 14:22 Pulse Ox 99 10/12/17 14:22 Intake & Output 10/11/17 10/12/17 10/12/17 18:59 06:59 18:59 Other: # Voids 3 # Bowel Movements 0 Active Medications: Current Medications Acetaminophen (Tylenol) 650 mg PO Q4HR PRN PRN Reason: Mild Pain / Temp above 100 Stop: 12/04/17 16:54 Al Hydrox/Mg Hydrox/Simethicone (Maalox) 30 ml PO Q4HR PRN PRN Reason: GI DISTRESS Stop: 12/04/17 16:54 Benztropine Mesylate (Cogentin) 1 mg PO BID CESIA Stop: 12/05/17 08:59 Last Admin: 10/12/17 09:14 Dose: 1 mg Lorazepam (Ativan) 0.5 mg PO Q4HR PRN; Protocol PRN Reason: Anxiety Stop: 11/04/17 16:54 Magnesium Hydroxide (Milk Of Magnesia) 30 ml PO HS PRN PRN Reason: Constipation Quetiapine Fumarate (Seroquel) 200 mg PO HS CESIA; Protocol Stop: 12/09/17 20:59 Last Admin: 10/11/17 21:31 Dose: Not Given General: demented HEENT: NC/AT, PERRLA Neck: Supple Lungs: CTAB Cardiovascular: RRR, Normal S1, Normal S2, without murmur Abdomen: soft, non-tender, non-distended, positive bowel sound Extremities: excoriation, contracture Internal Medicine Assmt/Plan - Assessment Assessment: agitation htn anemia schizophrenia - Plan Plan: fall precautions continue current plan of care Nutritional Asmnt/Malnutr-PDOC - Dietary Evaluation Malnutrition Findings (Please click <Entered> for more info): Nutritional Asmnt/Malnutrition Start: 10/08/17 11: 51 Text: Status: Complete Freq: Protocol: Document 10/09/17 10:11 MMULHERN (Rec: 10/09/17 10:39 JUANI MICHELLE- [email or web address]) Nutritional Asmnt/Malnutrition Patient General Information Nutritional Screening Moderate Risk Diagnosis Psychosis Pertinent Medical Hx/Surgical Hx HTN, anemia Subjective Information Patient was admitted from [facility]. Patient asleep at time of visit. Current Diet Order/ Nutrition Support 4gm sodium (no added salt) Patient / S.O Not Indicated Pertinent Medications Maalox, MOm Pertinent Labs TAG 219 Nutritional Hx/Data Height 5 ft 7 in Height (Calculated Centimeters) 170.2 Current Weight (lbs) 101 lb Weight (Calculated Kilograms) 45.8 Weight (Calculated Grams) 93148.8 [place] Body Weight 135 % [place] Body Weight 75 Body Mass Index (BMI) 15.7 Recent Weight Change No Weight Status Underweight GI Symptoms GI Symptoms None Last BM none noted in EMR since admission Difficult in: None Food Allergies No Cultural/Ethnic/Rastafarian Belief none indicated Usual diet at home unknown Skin Integrity/Comment: valeria 21, intact Current %PO Good (75-100%) Estimated Nutritional Goals BEE in Kcals: Adj wt of IBW Calories/Kcals/Kg 30-35 kcal/kg using IBW 61.3kg Kcals Calculated 1183-1003 kcal/day Protein: Adj wt of IBW Protein g/k.8-1 gm/kg using IBW Protein Calculated 50-60 gm/day Fluid: ml 8094-1420 ml/day (1 ml/kca) Nutritional Problem 1. Problem Problem Underweight related to Etiology possible inadequate intake prior to admission aeb Signs/Symptoms: BMI 15.8, 75% IBW Intervention/Recommendation Comments 1. Continue 4gm sodium diet as tolerated by patient due to patient's history of HTN. May liberalize diet to regular to increase dietary options and increase caloric intake. 2. Oral intake is adequate - current diet is meeting 100% of nutrient needs. If patient does not gain weight, consider adding Ensure Enlive with meals as supplemental calories . 3. F/U in 3-5 days as MR 10/12- Expected Outcomes/Goals Expected Outcomes/Goals oral intake >75% of meals, weight trend toward IBW, nutrition related labs WNL
[2017-10-13] MEDS: Multivitamin w/ Minerals Tab PO SCH (08:30)
[2017-10-13] MEDS: Benztropine 1 MG TAB PO SCH (08:30)
== END 2017-10-13 14:00 | DRG 885 ==
LOC: ER 14:18 → GERO2 16:15
DX: F25.9 Schizoaffective disorder, unspecified (principal); I10 Essential (primary) hypertension; F31.9 Bipolar disorder, unspecified; D64.9 Anemia, unspecified; Z88.5 Allergy status to narcotic agent; Z88.8 Allergy status to other drugs, medicaments and biological substances; Z82.49 Family history of ischemic heart disease and other diseases of the circulatory system
CPT/HCPCS: 36415-UA; 71045-TC; 80053-TC; 80061-TC; 80307; 80320-TC; 80329-TC; 81001-TC; 83036-90; 84443-TC; 84484-TC; 85025-TC; 86592-TC; 87086-90; 93005; J1630; J2060; Z7610

== ENCOUNTER 2018-04-06 10:17 | Inpatient (IN) | payer MEDICARE, MEDICAID ==
--- NOTE | 2018-04-06 10:40 | ED Physician Chart ---
ED Chief Complaint/HPI - Patient Information Date Seen:: 04/06/18 Time Seen:: 10:30 Chief Complaint:: lesion left superior back History of Present Illness:: Patient's had a "somewhat" painful left superior back mass for the last several days. No chills or fever. Allergies:: Allergies Allergy/AdvReac Type Severity Reaction Status Date / Time aspirin Allergy Verified 10/05/17 14:39 codeine Allergy Verified 06/11/17 20:18 Vitals:: Vital Signs - 8 hr 04/06/18 10:25 Temp 97.8 F HR 125 RR 19 BP 141/74 O2 Sat % 97 Historian:: Patient Review:: Nurse's Note Reviewed ED Review of Systems - Review of Systems General/Constitutional: No fever, No chills Skin: Skin lesions Head: No headache Eyes: No loss of vision ENT: No earache Neck: No neck pain Cardio Vascular: No chest pain Pulmonary: No SOB GI: No nausea, No vomiting, No diarrhea G/U: No dysuria Information Services Vice President: No vaginal discharge Musculoskeletal: No bone or joint pain Endocrine: No polyuria Hematopoietic: No bruising Allergic/Immuno: No urticaria Neurological: No syncope, No focal symptoms ED Past Medical History - Past Medical History Past Medical History: HTN, Other (neck pain; anemia; hypertension; legally blind ) Family History: Other Social History: Smoker, No Alcohol Surgical History: , other (tubal ligation) Psychiatricy History: Other (unknown) Medication: Reviewed Family Medical History - Family Member Mother History Unknown: Yes ED Physical Exam - Physical Examination General/Constitutional: Awake, Well-developed, well-nourished, Alert, No distress Head: Atraumatic Eyes: Lids, conjuctiva normal, PERRL Other Skin comments:: About 12 x 8 cm area of swelling with overlying skin redness left superior back ; several drops of pale pus on skin surface ENMT: External ears, nose nl, Tonsils nl Other ENMT comments:: Poor dental hygiene Neck: No nuchal rigidity Respiratory: Nl effort/Exclusion, Clear to Auscultation, No Wheeze/Rhonchi/Rales Cardio Vascular: RRR, No murmur, gallop, rubs GI: No tenderness/rebounding/guarding, No organomegaly, No hernia, Normal BS's, Nondistended, No mass/bruits : No CVA tenderness Extremities: Normal digits & nails Neuro/Psych: No focal deficits ED Labs/Radiology/EKG Results - Lab Results Results: Abnormal Lab Results 04/06/18 04/06/18 10:42 10:42 WBC 29.5 H* RBC 3.41 L Hgb 10.5 L Hct 31.4 L MCV 92.1 MCH 30.9 MCHC Differential 33.5 RDW 13.4 Plt Count 297 MPV 7.6 Add Manual Diff YES Band Neutrophils % 3 Neutrophils (Manual) 84 H Lymphocytes 5 L Monocytes 8 Eosinophils 0 Basophils 0 Sodium 135 L Potassium 3.4 L Chloride 103 Carbon Dioxide 23.5 Anion Gap 11.9 BUN 10 Creatinine 0.5 L Est GFR ( Amer) > 60.0 Est GFR (Non-Af Amer) > 60.0 BUN/Creatinine Ratio 20.0 Glucose 123 H Calcium 9.0 ED Assessment - Assessment General Assessment: Patient has a very large abscess on the left superior back. It would be suboptimal treatment to I&D it in the emergency department. ED Septic Shock - . Is Septic Shock (SBP<90, OR Lactate>4 mmol\\L) present?: No - <6hrs of presentation: Vital Signs: Vital Signs - 8 hr 04/06/18 10:25 Temp 97.8 F HR 125 RR 19 BP 141/74 O2 Sat % 97 ED Reassessment (Disposition) - Reassessment Reassessment Condition:: Unchanged - Diagnosis Diagnosis:: Abscess left superior back; leukocytosis with a left shift - Patient Disposition Admitted to:: Telemetry Spoke to:: Guy Clayton Admitting Medical Physician:: Guy Clayton Condition at Disposition:: Stable, Unchanged
[2018-04-06] MEDS ORDERED: Sodium Chloride 0.9% 1,000 ML IV ONE (10:46)
[2018-04-06 10:58] LABS: MEAN PLATELET VOLUME 7.6 fl
[2018-04-06 11:10] LABS: ANION GAP 11.9 (7.0-16.0); BUN - UREA NITROGEN 10 mg/dL (7-25); CARBON DIOXIDE 23.5 mEq/L (21.0-31.0); CHLORIDE 103 mEq/L (98-107); CREATININE - SERUM 0.5 mg/dL (0.6-1.2); GFR AFRICAN-AMERICAN > 60.0 ml/min (>90); GFR NON AFRICAN-AMERICAN > 60.0 ml/min; GLUCOSE 123 mg/dL (70-105); POTASSIUM SERUM 3.4 mEq/L (3.5-5.1); SODIUM SERUM 135 mEq/L (136-145)
[2018-04-06] MEDS ORDERED: Potassium Chloride 20 mEq ER Tab PO ONE ×2 (11:21→11:27)
[2018-04-06 11:22] LABS: HEMATOCRIT 31.4 % (41.0-60); HEMOGLOBIN 10.5 gm/dL (12-16); RED BLOOD COUNT 3.41 Mil/cmm (3.80-5.10); WHITE BLOOD COUNT 29.5 Th/cmm (4.8-10.8)
[2018-04-06 11:23] LABS: MEAN CELL VOLUME 92.1 fl (81-100); MEAN CORPUSCULAR HEMOGLOBIN 30.9 pg (27.0-31.0); MEAN CORPUSCULAR HGB CONC 33.5 pg (28.0-36.0); PLATELET COUNT 297 Th/cmm (150-400); RED CELL DISTRIBUTION WIDTH 13.4 % (11.5-20.0)
[2018-04-06 11:29] LABS: BAND NEUTROPHILE 3 % (0-10); EOSINOPHIL 0 % (0-5); LYMPHOCYTE 5 % (20-50); MONOCYTE 8 % (2-10); NEUTROPHILS 84 % (40-80)
[2018-04-06 11:30] LABS: BASOPHIL 0 % (0-3)
[2018-04-06] MEDS ORDERED: Albuterol Nebulizer 2.5mg/3mL HHN PRN (12:34)
[2018-04-06] MEDS ORDERED: Ipratropium Neb 0.5 mg/2.5 mL UD IH PRN (12:34)
[2018-04-06] MEDS ORDERED: guaiFENesin 200 MG/10 ML UDC PO PRN (12:35)
[2018-04-06] MEDS ORDERED: Maalox 30 mL Cup PO PRN (12:35)
[2018-04-06] MEDS ORDERED: Hydrocodone/APAP 5mg/325mg Tab PO PRN (12:35)
[2018-04-06 12:39] LABS: INR 1.11 (0.5-1.4); PROTHROMBIN TIME (TEST) 11.4 SECONDS (9.5-11.5)
[2018-04-06] MEDS: D5-0.9%NS 1,000 ML IV SCH (13:52)
--- NOTE | 2018-04-06 14:14 | Internal Medicine Prog Note ---
Internal Medicine Subjective - Subjective Service Date: 04/06/18 ([facility] [id number] [facility]) Internal Medicine Objective - Results Result Diagrams: 04/06/18 10:42 04/06/18 10:42 Recent Labs: Laboratory Last Values WBC 29.5 Th/cmm (4.8-10.8) H* 04/06/18 10:42 RBC 3.41 Mil/cmm (3.80-5.10) L 04/06/18 10:42 Hgb 10.5 gm/dL (12-16) L 04/06/18 10:42 Hct 31.4 % (41.0-60) L 04/06/18 10:42 MCV 92.1 fl (81-100) 04/06/18 10:42 MCH 30.9 pg (27.0-31.0) 04/06/18 10:42 MCHC Differential 33.5 pg (28.0-36.0) 04/06/18 10:42 RDW 13.4 % (11.5-20.0) 04/06/18 10:42 Plt Count 297 Th/cmm (150-400) 04/06/18 10:42 MPV 7.6 fl 04/06/18 10:42 Add Manual Diff YES 04/06/18 10:42 Band Neutrophils % 3 % (0-10) 04/06/18 10:42 Neutrophils (Manual) 84 % (40-80) H 04/06/18 10:42 Lymphocytes 5 % (20-50) L 04/06/18 10:42 Monocytes 8 % (2-10) 04/06/18 10:42 Eosinophils 0 % (0-5) 04/06/18 10:42 Basophils 0 % (0-3) 04/06/18 10:42 PT 11.4 SECONDS (9.5-11.5) 04/06/18 10:42 INR 1.11 (0.5-1.4) 04/06/18 10:42 PTT (Actin FS) 32.1 SECONDS (26.0-38.0) 04/06/18 10:42 Sodium 135 mEq/L (136-145) L 04/06/18 10:42 Potassium 3.4 mEq/L (3.5-5.1) L 04/06/18 10:42 Chloride 103 mEq/L (98-107) 04/06/18 10:42 Carbon Dioxide 23.5 mEq/L (21.0-31.0) 04/06/18 10:42 Anion Gap 11.9 (7.0-16.0) 04/06/18 10:42 BUN 10 mg/dL (7-25) 04/06/18 10:42 Creatinine 0.5 mg/dL (0.6-1.2) L 04/06/18 10:42 Est GFR ( Amer) > 60.0 ml/min (>90) 04/06/18 10:42 Est GFR (Non-Af Amer) > 60.0 ml/min 04/06/18 10:42 BUN/Creatinine Ratio 20.0 04/06/18 10:42 Glucose 123 mg/dL (70-105) H 04/06/18 10:42 Whole Bld Lactic Acid 0.73 mmol/L (0.60-1.99) 04/06/18 11:30 Calcium 9.0 mg/dL (8.6-10.3) 04/06/18 10:42 - Physical Exam Vitals and I&O: Vital Signs Temp 97.8 F 04/06/18 10:25 Pulse 98 04/06/18 12:17 Resp 16 04/06/18 12:17 BP 121/61 04/06/18 12:17 Pulse Ox 98 04/06/18 12:17 Intake & Output 04/05/18 04/06/18 04/06/18 18:59 06:59 18:59 Weight (lbs) 149 lb Other: Weight Source Estimated Active Medications: Current Medications Acetaminophen (Tylenol) 650 mg PO Q4H PRN PRN Reason: Pain Or Fever above 101 Stop: 06/05/18 12:34 Acetaminophen/Hydrocodone Bitart ([place] 5mg/325mg) 1 tab PO Q4H PRN PRN Reason: Pain (Severe) Stop: 06/05/18 12:34 Al Hydrox/Mg Hydrox/Simethicone (Maalox) 30 ml PO Q6H PRN PRN Reason: Dyspepsia Stop: 06/05/18 12:34 Albuterol Sulfate (Albuterol 2.5mg/3ml Neb Ud) 2.5 mg HHN Q2HRT PRN PRN Reason: Shortness of Breath or Wheeze Stop: 06/05/18 12:33 Guaifenesin (Robitussin) 200 mg PO Q4HR PRN PRN Reason: Cough or Congestion Stop: 06/05/18 12:34 Haloperidol Decanoate (Haldol Dec) 50 mg IM [id number] [facility] Stop: 06/05/18 12:44 Dextrose/Sodium Chloride (D5-0.9%Ns) 1,000 mls @ 80 mls/hr IV .[id number] [facility] Stop: 06/05/18 12:44 Last Admin: 04/06/18 13:52 Dose: 80 mls/hr Piperacillin Sod/Tazobactam (Sod 4.5 gm/ Sodium Chloride) 100 mls @ 100 mls/hr IV Q8HR [facility] Stop: 06/05/18 12:59 Last Admin: 04/06/18 13:53 Dose: 100 mls/hr Vancomycin HCl 1.5 gm/ Sodium (Chloride) 500 mls @ 250 mls/hr IV ONCE ONE Stop: 04/06/18 21:59 Vancomycin HCl 1.25 gm/ Sodium (Chloride) 250 mls @ 165 mls/hr IV Q12H [facility] Stop: 06/06/18 08:59 Ipratropium [place] (Atrovent Neb 0.5mg/2.5ml) 0.5 mg IH Q2HRT PRN PRN Reason: Shortness of Breath or Wheeze Stop: 06/05/18 12:33 Lorazepam (Ativan) 1 mg PO Q6H PRN; Protocol PRN Reason: Anxiety Stop: 06/05/18 12:32 Miscellaneous (Vancomycin Iv Per Pharmacy) 1 ea MC DAILY [facility] Stop: 06/05/18 12:44 Olanzapine (Zyprexa) 15 mg PO BID [facility]; Protocol Stop: 06/05/18 16:59 Ondansetron HCl (Zofran) 4 mg IV Q8H PRN PRN Reason: Nausea / Vomiting Stop: 06/05/18 12:34
[2018-04-06 15:18] VITALS: BP 139/62
--- NOTE | 2018-04-06 16:37 | History & Physical ---
ADMIT DATE: 04/06/2018 CHIEF COMPLAINT: Left posterior lesion. HISTORY OF PRESENT ILLNESS: This is a 62-year-old female who is well known to me from [facility]. For 1 week, the patient has been having a left superior lesion. A week ago, it started off as a pimple. The patient was treated with Keflex 500 mg q.12. Despite of receiving Keflex, the patient's wound got worse. For this reason, the patient was sent out to [facility] to be evaluated. In the ER, the patient was noted with a white count of 29,000. No reports of any fevers at the SNF. PAST MEDICAL HISTORY: Hypertension, chronic neck pain, anemia, hypertension, legally blind. FAMILY HISTORY: Noncontributory. SOCIAL HISTORY: The patient is a group home resident, requiring 24-hour nursing care. MEDICATIONS: Please see medication list. REVIEW OF SYSTEMS: GENERAL: Denies any fevers and chills. CARDIOVASCULAR: Denies chest pain. RESPIRATORY: Denies shortness of breath. GASTROINTESTINAL: Denies nausea, vomiting, abdominal pain. GENITOURINARY: Denies increased frequency or dysuria. NEUROLOGIC: No headache, seizures, syncope. All other systems are reviewed and negative. PHYSICAL EXAMINATION: GENERAL: Elderly female, awake, alert with some confusion. No apparent distress. VITAL SIGNS: Temperature 97.8, heart rate 125, blood pressure 141/74, respirations 19, O2 97%. HEENT: Head: Normocephalic, atraumatic. NECK: Supple. No mass. LUNGS: Clear bilaterally. HEART: Regular rhythm. ABDOMEN: Soft, nontender. EXTREMITIES: No edema noted. SKIN: The patient's left posterior site is noted with redness and tenderness. ASSESSMENT: Left posterior abscess, acute cellulitis, leukocytosis, hyponatremia, hypokalemia, microcytic anemia, hypertension, psychosis, chronic neck pain. PLAN: The patient to be admitted to the telemetry unit. We will get surgical consultation. We will get follow up labs. We will treat the patient with IV Zosyn and vancomycin. We will send wound for cultures and urine for culture as well. IV fluids for hydration. We will continue to monitor this patient. JOB# [id number]
[2018-04-06 18:30] LABS: URINE SOURCE CATH
[2018-04-06 18:41] LABS: URINE BILIRUBIN NEGATIVE (NEGATIVE); URINE BLOOD NEGATIVE (NEGATIVE); URINE GLUCOSE (UA) NEGATIVE (NEGATIVE); URINE KETONE NEGATIVE (NEGATIVE); URINE LEUKOCYTE ESTERASE NEGATIVE (NEGATIVE); URINE NITRATE NEGATIVE (NEGATIVE); URINE PH 7.5 (4.6 - 8.0); URINE PROTEIN NEGATIVE (NEGATIVE); URINE UROBILINOGEN 0.2 E.U./dL (0.2 - 1.0)
[2018-04-06 18:54] LABS: URINE CLARITY CLEAR (CLEAR); URINE COLOR YELLOW; URINE MICROSCOPIC INDICATED? YES
[2018-04-06 18:55] LABS: URINE BACTERIA FEW /hpf (NONE SEEN); URINE EPITHELIAL CELLS NONE SEEN /lpf (FEW); URINE RBC NONE SEEN /hpf (0-5); URINE WBC 0-2 /hpf (0-5)
[2018-04-06] MEDS ORDERED: Vancomycin HCl 1.5 GM in Sodium Chloride 0.9% 500 ML IV ONE (20:00)
--- NOTE | 2018-04-06 21:41 | Consultation ---
DATE OF CONSULTATION: 04/06/2018 SURGICAL CONSULTATION NOTE TIME: 12 p.m. HISTORY OF PRESENT ILLNESS: The patient is a 62-year-old female, resident at [facility] for 1 week having left upper back pain and tenderness, started off as a pimple, treated with Keflex, but despite this worsened. The patient was seen in the ER, white count of 29,000, fever at the care home [facility], was brought to the Emergency Room. PAST MEDICAL HISTORY: Hypertension, chronic neck pain, anemia, hypertension, legally blind. FAMILY HISTORY: Noncontributory. MEDICATIONS: List is provided. PHYSICAL EXAMINATION: VITAL SIGNS: The patient is afebrile, pulse rate of 100. Vital signs otherwise stable. GENERAL: She is awake, follows commands, in no acute distress. HEENT AND NECK: Within normal limits. BACK: Her left upper back, she has a large area of erythema, tenderness, pain, and fluctuance. Purulent drainage consistent with a left upper back abscess. CHEST: Clear to auscultation bilaterally. CARDIOVASCULAR: Regular rate. ABDOMEN: Otherwise, soft, nontender, nondistended. NEUROVASCULAR: Otherwise normal. No CVA, flank, or paraspinal tenderness. LABORATORY RESULT: Show white blood cell count 29.5, H and H is 10.5 and 31.4, platelet count 297, and 3 bands. She has potassium 3.4, sodium 135, glucose 123. UA is few bacteria. MEDICATIONS: She is on acetaminophen, Zosyn, vancomycin. IMPRESSION/PLAN: Large left upper back abscess with signs of leukocytosis. Recommend incision and drainage of this abscess with anesthesia. Continue IV antibiotics for now. Plan for tomorrow. We will arrange with OR and anesthesia. JOB# [id number]
[2018-04-07 08:19] LABS: HEMATOCRIT 27.6 % (41.0-60); HEMOGLOBIN 9.4 gm/dL (12-16); MEAN CELL VOLUME 91.8 fl (81-100); MEAN CORPUSCULAR HEMOGLOBIN 31.3 pg (27.0-31.0); MEAN CORPUSCULAR HGB CONC 34.1 pg (28.0-36.0); MEAN PLATELET VOLUME 7.5 fl; PLATELET COUNT 297 Th/cmm (150-400); RED BLOOD COUNT 3.01 Mil/cmm (3.80-5.10); RED CELL DISTRIBUTION WIDTH 13.3 % (11.5-20.0)
[2018-04-07 08:23] LABS: WHITE BLOOD COUNT 20.4 Th/cmm (4.8-10.8)
[2018-04-07 08:39] LABS: ALB/GLOB RATIO 0.9 (1.0-1.8); ALBUMIN 2.9 gm/dL (3.7-5.3); ALKALINE PHOSPHATASE 64 U/L (34-104); ANION GAP 9.3 (7.0-16.0); BILIRUBIN,TOTAL 0.4 mg/dL (0.3-1.0); BUN - UREA NITROGEN 7 mg/dL (7-25); CALCIUM SERUM 8.6 mg/dL (8.6-10.3); CARBON DIOXIDE 22.5 mEq/L (21.0-31.0); CHLORIDE 112 mEq/L (98-107); CREATININE - SERUM 0.5 mg/dL (0.6-1.2); GFR AFRICAN-AMERICAN > 60.0 ml/min (>90); GFR NON AFRICAN-AMERICAN > 60.0 ml/min; GLUCOSE 132 mg/dL (70-105); MAGNESIUM 1.8 mg/dL (1.9-2.7); POTASSIUM SERUM 3.8 mEq/L (3.5-5.1); SGOT 13 U/L (13-39); SGPT/ALT 15 U/L (7-52); SODIUM SERUM 140 mEq/L (136-145); TOTAL PROTEIN,SERUM 6.1 gm/dL (6.0-8.3)
[2018-04-07] MEDS: D5-0.9%NS 1,000 ML IV SCH (09:09)
[2018-04-07 09:45] LABS: BAND NEUTROPHILE 2 % (0-10); BASOPHIL 0 % (0-3); EOSINOPHIL 1 % (0-5); LYMPHOCYTE 13 % (20-50); MONOCYTE 6 % (2-10); NEUTROPHILS 78 % (40-80)
[2018-04-07] MEDS ORDERED: Lactated Ringer 1,000 ML IV ONE (12:30)
[2018-04-07] MEDS ORDERED: fentaNYL Citrate 100 mcg/2mL Vial ONE (12:42)
[2018-04-07] MEDS ORDERED: Propofol **SURGERY USE ONLY** 20 ML IV ONE (12:49)
--- NOTE | 2018-04-07 12:59 | Internal Medicine Prog Note ---
Internal Medicine Subjective - Subjective Patient seen and examined:: with staff, chart reviewed Patient is:: awake, verbal, interactive Patient Complaints of:: congestion Per staff patient has:: no adverse event, no episodes of fall, eating well, agitated, tolerating meds Internal Medicine Objective - Results Result Diagrams: 04/07/18 07:45 04/07/18 07:45 Recent Labs: Laboratory Last Values WBC 20.4 Th/cmm (4.8-10.8) H* D 04/07/18 07:45 RBC 3.01 Mil/cmm (3.80-5.10) L 04/07/18 07:45 Hgb 9.4 gm/dL (12-16) L 04/07/18 07:45 Hct 27.6 % (41.0-60) L 04/07/18 07:45 MCV 91.8 fl (81-100) 04/07/18 07:45 MCH 31.3 pg (27.0-31.0) H 04/07/18 07:45 MCHC Differential 34.1 pg (28.0-36.0) 04/07/18 07:45 RDW 13.3 % (11.5-20.0) 04/07/18 07:45 Plt Count 297 Th/cmm (150-400) 04/07/18 07:45 MPV 7.5 fl 04/07/18 07:45 Add Manual Diff YES 04/07/18 07:45 Band Neutrophils % 2 % (0-10) 04/07/18 07:45 Neutrophils (Manual) 78 % (40-80) 04/07/18 07:45 Lymphocytes 13 % (20-50) L 04/07/18 07:45 Monocytes 6 % (2-10) 04/07/18 07:45 Eosinophils 1 % (0-5) 04/07/18 07:45 Basophils 0 % (0-3) 04/07/18 07:45 PT 11.4 SECONDS (9.5-11.5) 04/06/18 10:42 INR 1.11 (0.5-1.4) 04/06/18 10:42 PTT (Actin FS) 32.1 SECONDS (26.0-38.0) 04/06/18 10:42 Sodium 140 mEq/L (136-145) 04/07/18 07:45 Potassium 3.8 mEq/L (3.5-5.1) 04/07/18 07:45 Chloride 112 mEq/L (98-107) H 04/07/18 07:45 Carbon Dioxide 22.5 mEq/L (21.0-31.0) 04/07/18 07:45 Anion Gap 9.3 (7.0-16.0) 04/07/18 07:45 BUN 7 mg/dL (7-25) 04/07/18 07:45 Creatinine 0.5 mg/dL (0.6-1.2) L 04/07/18 07:45 Est GFR ( Amer) > 60.0 ml/min (>90) 04/07/18 07:45 Est GFR (Non-Af Amer) > 60.0 ml/min 04/07/18 07:45 BUN/Creatinine Ratio 14.0 04/07/18 07:45 Glucose 132 mg/dL (70-105) H 04/07/18 07:45 POC Glucose 100 MG/DL (70 - 105) 04/07/18 11:43 Whole Bld Lactic Acid 0.73 mmol/L (0.60-1.99) 04/06/18 11:30 Calcium 8.6 mg/dL (8.6-10.3) 04/07/18 07:45 Magnesium 1.8 mg/dL (1.9-2.7) L 04/07/18 07:45 Total Bilirubin 0.4 mg/dL (0.3-1.0) 04/07/18 07:45 AST 13 U/L (13-39) 04/07/18 07:45 ALT 15 U/L (7-52) 04/07/18 07:45 Alkaline Phosphatase 64 U/L (34-104) 04/07/18 07:45 Ammonia 46 umol/L (16-53) 04/07/18 07:45 B-Natriuretic Peptide 39.3 pg/mL (5.0-100.0) 04/07/18 07:45 Total Protein 6.1 gm/dL (6.0-8.3) 04/07/18 07:45 Albumin 2.9 gm/dL (3.7-5.3) L 04/07/18 07:45 Globulin 3.2 gm/dL 04/07/18 07:45 Albumin/Globulin Ratio 0.9 (1.0-1.8) L 04/07/18 07:45 TSH 3.56 uIU/ml (0.34-5.60) 04/07/18 07:45 Urine Source CATH 04/06/18 18:10 Urine Color YELLOW 04/06/18 18:10 Urine Clarity CLEAR (CLEAR) 04/06/18 18:10 Urine pH 7.5 (4.6 - 8.0) 04/06/18 18:10 Ur Specific [place] 1.010 (1.005-1.030) 04/06/18 18:10 Urine Protein NEGATIVE mg/dL (NEGATIVE) 04/06/18 18:10 Urine Glucose (UA) NEGATIVE mg/dL (NEGATIVE) 04/06/18 18:10 Urine Ketones NEGATIVE mg/dL (NEGATIVE) 04/06/18 18:10 Urine Blood NEGATIVE (NEGATIVE) 04/06/18 18:10 Urine Nitrate NEGATIVE (NEGATIVE) 04/06/18 18:10 Urine Bilirubin NEGATIVE (NEGATIVE) 04/06/18 18:10 Urine Urobilinogen 0.2 E.U./dL (0.2 - 1.0) 04/06/18 18:10 Ur Leukocyte Esterase NEGATIVE (NEGATIVE) 04/06/18 18:10 Urine RBC NONE SEEN /hpf (0-5) 04/06/18 18:10 Urine WBC 0-2 /hpf (0-5) 04/06/18 18:10 Ur Epithelial Cells NONE SEEN /lpf (FEW) 04/06/18 18:10 Urine Bacteria FEW /hpf (NONE SEEN) 04/06/18 18:10 Vancomycin Trough 5.9 ug/mL (5-10) 04/07/18 07:45 - Physical Exam Vitals and I&O: Vital Signs Temp 98.3 F 04/07/18 11:59 Pulse 80 04/07/18 11:59 Resp 18 04/07/18 11:59 BP 114/58 04/07/18 11:59 Pulse Ox 95 04/07/18 11:59 Intake & Output 04/06/18 04/07/18 04/07/18 18:59 06:59 18:59 Intake Total 700 1100 Balance 700 1100 Weight (lbs) 72.529 kg Intake: Intake, IV Amount 100 1100 D5-0.9%Ns 1,000 ml @ 80 1000 mls/hr IV .[id number] [facility] Rx #:[id number] Piperacillin Sodium/ 100 100 Tazobact 4.5 gm In Sodium Chloride 0.9% 100 ml @ 100 mls/hr IV Q8HR [facility] Rx #:[id number] Oral 600 Other: # Voids 2 # Bowel Movements 0 Weight Source Bedscale Active Medications: Current Medications Acetaminophen (Tylenol) 650 mg PO Q4H PRN PRN Reason: Pain Or Fever above 101 Stop: 06/05/18 12:34 Acetaminophen/Hydrocodone Bitart ([place] 5mg/325mg) 1 tab PO Q4H PRN PRN Reason: Pain (Severe) Stop: 06/05/18 12:34 Al Hydrox/Mg Hydrox/Simethicone (Maalox) 30 ml PO Q6H PRN PRN Reason: Dyspepsia Stop: 06/05/18 12:34 Albuterol Sulfate (Albuterol 2.5mg/3ml Neb Ud) 2.5 mg HHN Q2HRT PRN PRN Reason: Shortness of Breath or Wheeze Stop: 06/05/18 12:33 Guaifenesin (Robitussin) 200 mg PO Q4HR PRN PRN Reason: Cough or Congestion Stop: 06/05/18 12:34 Haloperidol Decanoate (Haldol Dec) 50 mg IM [id number] [facility] Stop: 06/05/18 12:44 Dextrose/Sodium Chloride (D5-0.9%Ns) 1,000 mls @ 80 mls/hr IV .[id number] [facility] Stop: 06/05/18 12:44 Last Admin: 04/07/18 09:09 Dose: 80 mls/hr Piperacillin Sod/Tazobactam (Sod 4.5 gm/ Sodium Chloride) 100 mls @ 100 mls/hr IV Q8HR [facility] Stop: 06/05/18 12:59 Last Admin: 04/07/18 04:47 Dose: 100 mls/hr Vancomycin HCl 1.5 gm/ Sodium (Chloride) 500 mls @ 250 mls/hr IV Q12H [facility] Stop: 06/06/18 20:59 Ipratropium [place] (Atrovent Neb 0.5mg/2.5ml) 0.5 mg IH Q2HRT PRN PRN Reason: Shortness of Breath or Wheeze Stop: 06/05/18 12:33 Lorazepam (Ativan) 1 mg PO Q6H PRN; Protocol PRN Reason: Anxiety Stop: 06/05/18 12:32 Miscellaneous (Vancomycin Iv Per Pharmacy) 1 ea [facility] DAILY [facility] Stop: 06/05/18 12:44 Olanzapine (Zyprexa) 15 mg PO BID [facility]; Protocol Stop: 06/05/18 16:59 Last Admin: 04/07/18 09:16 Dose: Not Given Ondansetron HCl (Zofran) 4 mg IV Q8H PRN PRN Reason: Nausea / Vomiting Stop: 06/05/18 12:34 General: demented, appears older HEENT: NC/AT, PERRLA, EOMI, thinning hair Neck: Supple, No JVD, No thyromegaly Lungs: congested Cardiovascular: RRR, Normal S1, Normal S2 Abdomen: soft, non-tender, non-distended, positive bowel sound Extremities: excoriation, other (redness back) Neurological: no change Internal Medicine Assmt/Plan - Assessment Assessment: ASSESSMENT: Left posterior abscess, acute cellulitis, leukocytosis, hyponatremia, hypokalemia, microcytic anemia, hypertension, psychosis, chronic neck pain. - Plan Plan: PLAN: The patient to be admitted to the telemetry unit. We will get surgical consultation. We will get follow up labs. We will treat the patient with IV Zosyn and vancomycin. We will send wound for cultures and urine for culture as well. IV fluids for hydration. We will continue to monitor this patient.
--- NOTE | 2018-04-07 13:13 | Operative Report ---
Post Operative Report - POST-OPERATIVE NOTE Preoperative diagnosis:: left upper back abscess Postoperative diagnosis:: same Operation performed:: incision and drainage L upper back abscess. excisional sharp debridement skin subcut fascia wound [id number] Specimen:: wound cultures, debris Anesthesia:: Mac, Local Anesthesiologist:: Jose Craft Blood Loss (fluid management):: 20ml Surgeon:: German Triana Findings:: large [id number] L upper back abscess. phlegmon Prosthetic devices, grafts, tissue or device implanted:: none Complications:: none
--- NOTE | 2018-04-07 14:20 | Diagnostic Imaging Report ---
CHEST X-RAY: AP view INDICATION: Cough, preop COMPARISON: Chest x-ray 10/06/2017 FINDINGS: Suboptimal lung volumes are seen with mild chronic changes. There is no focal consolidation or pleural effusions The heart is normal in size. The osseous structures demonstrate no acute abnormalities. IMPRESSION: No focal consolidation identified.
--- NOTE | 2018-04-07 18:11 | Operative Report ---
DATE OF SURGERY: 04/07/2018 PREOPERATIVE DIAGNOSIS: Left upper back abscess. POSTOPERATIVE DIAGNOSIS: Left upper back abscess. OPERATION PERFORMED: 1. Incision and drainage of left upper back abscess. 2. Sharp excisional debridement of skin, subcutaneous tissue, fascia of wound measuring 20 x 16 cm. SPECIMENS: Wound culture, sent debris of abscess cavity wound. ANESTHESIA: MAC and local. ANESTHESIOLOGIST: Bob Craft M.D. ESTIMATED BLOOD LOSS: 20 mL. SURGEON: German Triana M.D. FINDINGS: A large 20 x 16 cm left upper back abscess phlegmon. PROSTHETIC DEVICES: None. COMPLICATIONS: None. DESCRIPTION OF PROCEDURE: After confirming patient identification and procedure to be done, the patient was placed in supine position. The patient administered IV sedation, repositioned to the lateral decubitus position. The dressings were removed from the left upper back abscess site. The wound was prepped and draped in usual sterile fashion. Timeout was performed. Local anesthesia was used to infiltrate the skin and subcutaneous tissue. After confirming anesthesia, transverse incision was made with the scalpel and deepened with the Bovie cautery. The curette device was then used to curette the devitalized, ischemic, gangrenous infected skin and subcutaneous tissue and fascia down to healthy viable tissue. The wound cultures were taken and some debris with the bone rongeur device was then used to clean out the wound. There was no bone exposed. The wound was then irrigated with normal saline. Cautery was used for hemostasis and the wound was packed with two 4 x 4 gauzes. Dressings were applied. The patient tolerated the procedure well. The patient was woken up from anesthesia and taken to recovery room in a stable condition. JOB# [id number]
[2018-04-07] MEDS: Vancomycin HCl 1.5 GM in Sodium Chloride 0.9% 500 ML IV SCH (21:35)
--- NOTE | 2018-04-08 01:35 | Consultation ---
DATE OF CONSULTATION: 04/07/2018 The patient was seen, chart reviewed, discussed with staff. HISTORY OF PRESENT ILLNESS: The patient is a 62-year-old female with chronic history of schizophrenia, known to myself from prior treatment, recently discharged from [facility] and went back to her detention facility, now admitted on the medical floor with an abscess and she requires a surgical draining. The patient has been cooperative with staff passively, but demanding to be called Dr. Dubois. The patient is chronically delusional, but she denied feeling depressed. PAST PSYCHIATRIC HISTORY: Multiple hospitalizations, history of schizoaffective disorder. PAST MEDICAL HISTORY: As per Dr. Clayton. PSYCHOSOCIAL HISTORY: The patient resides at [facility], requires complete care. MENTAL STATUS EXAMINATION: The patient is in bed, passively cooperative, made fair eye contact. Speech is minimal. Thought process is disorganized. The patient is paranoid, chronic delusions, somewhat grandiose about being Dr. Dubois. The patient has no suicidal or homicidal thoughts. ASSESSMENT: We will continue current dose of Zyprexa. The patient is also on Haldol Decanoate. Use Ativan as needed. We will monitor condition closely while on medical floor. Thank you for the consultation. JOB# [id number]
[2018-04-08 04:36] LABS: % BASOPHILS 0.8 % (0.0-2.0); % EOSINOPHILS 1.2 % (0.0-5.0); % MONOCYTES 6.1 % (2.0-10.0); % NEUTROPHILS 69.9 % (40.0-80.0); BASOPHILE ABSOLUTE 0.1 Th/cumm (0-0.2); EOSINOPHILE ABSOLUTE 0.2 Th/cmm (0.1-0.4); HEMATOCRIT 28.6 % (41.0-60); HEMOGLOBIN 9.3 gm/dL (12-16); LYMPHOCYTE ABSOLUTE 3.1 Th/cmm (1.5-3.0); MEAN CELL VOLUME 92.8 fl (81-100); MEAN CORPUSCULAR HGB CONC 32.4 pg (28.0-36.0); MEAN PLATELET VOLUME 7.9 fl; MONOCYTE ABSOLUTE 0.9 Th/cmm (0.3-1.0); NEUTROPHILE ABSOLUTE 9.7 Th/cmm (1.8-8.0); PLATELET COUNT 299 Th/cmm (150-400); RED BLOOD COUNT 3.09 Mil/cmm (3.80-5.10); RED CELL DISTRIBUTION WIDTH 13.9 % (11.5-20.0)
[2018-04-08 04:46] LABS: ANION GAP 9.7 (7.0-16.0); BUN - UREA NITROGEN 8 mg/dL (7-25); CALCIUM SERUM 8.4 mg/dL (8.6-10.3); CHLORIDE 111 mEq/L (98-107); CREATININE - SERUM 0.5 mg/dL (0.6-1.2); GFR AFRICAN-AMERICAN > 60.0 ml/min (>90); GFR NON AFRICAN-AMERICAN > 60.0 ml/min; GLUCOSE 123 mg/dL (70-105); MAGNESIUM 1.9 mg/dL (1.9-2.7); POTASSIUM SERUM 3.7 mEq/L (3.5-5.1); SODIUM SERUM 139 mEq/L (136-145)
[2018-04-08] MEDS: D5-0.9%NS 1,000 ML IV SCH (08:55)
[2018-04-08] MEDS: Vancomycin HCl 1.5 GM in Sodium Chloride 0.9% 500 ML IV SCH ×2 (10:06→21:08)
[2018-04-08 10:19] LABS: FOLIC ACID 15.5 ng/mL (>3.0)
--- NOTE | 2018-04-08 12:59 | Internal Medicine Prog Note ---
Internal Medicine Subjective - Subjective Patient seen and examined:: with staff, chart reviewed Patient is:: awake, verbal, interactive Patient Complaints of:: congestion Per staff patient has:: no adverse event, no episodes of fall, eating well, agitated, tolerating meds Internal Medicine Objective - Results Result Diagrams: 04/08/18 03:30 04/08/18 03:30 Recent Labs: Laboratory Last Values WBC 14.0 Th/cmm (4.8-10.8) H D 04/08/18 03:30 RBC 3.09 Mil/cmm (3.80-5.10) L 04/08/18 03:30 Hgb 9.3 gm/dL (12-16) L 04/08/18 03:30 Hct 28.6 % (41.0-60) L 04/08/18 03:30 MCV 92.8 fl (81-100) 04/08/18 03:30 MCH 30.0 pg (27.0-31.0) 04/08/18 03:30 MCHC Differential 32.4 pg (28.0-36.0) 04/08/18 03:30 RDW 13.9 % (11.5-20.0) 04/08/18 03:30 Plt Count 299 Th/cmm (150-400) 04/08/18 03:30 MPV 7.9 fl 04/08/18 03:30 Add Manual Diff YES 04/07/18 07:45 Neutrophils % 69.9 % (40.0-80.0) 04/08/18 03:30 Band Neutrophils % 2 % (0-10) 04/07/18 07:45 Lymphocytes % 22.0 % (20.0-50.0) 04/08/18 03:30 Monocytes % 6.1 % (2.0-10.0) 04/08/18 03:30 Eosinophils % 1.2 % (0.0-5.0) 04/08/18 03:30 Basophils % 0.8 % (0.0-2.0) 04/08/18 03:30 Neutrophils (Manual) 78 % (40-80) 04/07/18 07:45 Lymphocytes 13 % (20-50) L 04/07/18 07:45 Monocytes 6 % (2-10) 04/07/18 07:45 Eosinophils 1 % (0-5) 04/07/18 07:45 Basophils 0 % (0-3) 04/07/18 07:45 PT 11.4 SECONDS (9.5-11.5) 04/06/18 10:42 INR 1.11 (0.5-1.4) 04/06/18 10:42 PTT (Actin FS) 32.1 SECONDS (26.0-38.0) 04/06/18 10:42 Sodium 139 mEq/L (136-145) 04/08/18 03:30 Potassium 3.7 mEq/L (3.5-5.1) 04/08/18 03:30 Chloride 111 mEq/L (98-107) H 04/08/18 03:30 Carbon Dioxide 22.0 mEq/L (21.0-31.0) 04/08/18 03:30 Anion Gap 9.7 (7.0-16.0) 04/08/18 03:30 BUN 8 mg/dL (7-25) 04/08/18 03:30 Creatinine 0.5 mg/dL (0.6-1.2) L 04/08/18 03:30 Est GFR ( Amer) > 60.0 ml/min (>90) 04/08/18 03:30 Est GFR (Non-Af Amer) > 60.0 ml/min 04/08/18 03:30 BUN/Creatinine Ratio 16.0 04/08/18 03:30 Glucose 123 mg/dL (70-105) H 04/08/18 03:30 POC Glucose 100 MG/DL (70 - 105) 04/07/18 11:43 Whole Bld Lactic Acid 0.73 mmol/L (0.60-1.99) 04/06/18 11:30 Calcium 8.4 mg/dL (8.6-10.3) L 04/08/18 03:30 Magnesium 1.9 mg/dL (1.9-2.7) 04/08/18 03:30 Total Bilirubin 0.4 mg/dL (0.3-1.0) 04/07/18 07:45 AST 13 U/L (13-39) 04/07/18 07:45 ALT 15 U/L (7-52) 04/07/18 07:45 Alkaline Phosphatase 64 U/L (34-104) 04/07/18 07:45 Ammonia 44 umol/L (16-53) 04/08/18 03:50 B-Natriuretic Peptide 39.3 pg/mL (5.0-100.0) 04/07/18 07:45 Total Protein 6.1 gm/dL (6.0-8.3) 04/07/18 07:45 Albumin 2.9 gm/dL (3.7-5.3) L 04/07/18 07:45 Globulin 3.2 gm/dL 04/07/18 07:45 Albumin/Globulin Ratio 0.9 (1.0-1.8) L 04/07/18 07:45 Vitamin B12 500 pg/mL (232-1245) 04/07/18 07:45 Folic Acid 15.5 ng/mL (>3.0) 04/07/18 07:45 TSH 3.56 uIU/ml (0.34-5.60) 04/07/18 07:45 Urine Source CATH 04/06/18 18:10 Urine Color YELLOW 04/06/18 18:10 Urine Clarity CLEAR (CLEAR) 04/06/18 18:10 Urine pH 7.5 (4.6 - 8.0) 04/06/18 18:10 Ur Specific [place] 1.010 (1.005-1.030) 04/06/18 18:10 Urine Protein NEGATIVE mg/dL (NEGATIVE) 04/06/18 18:10 Urine Glucose (UA) NEGATIVE mg/dL (NEGATIVE) 04/06/18 18:10 Urine Ketones NEGATIVE mg/dL (NEGATIVE) 04/06/18 18:10 Urine Blood NEGATIVE (NEGATIVE) 04/06/18 18:10 Urine Nitrate NEGATIVE (NEGATIVE) 04/06/18 18:10 Urine Bilirubin NEGATIVE (NEGATIVE) 04/06/18 18:10 Urine Urobilinogen 0.2 E.U./dL (0.2 - 1.0) 04/06/18 18:10 Ur Leukocyte Esterase NEGATIVE (NEGATIVE) 04/06/18 18:10 Urine RBC NONE SEEN /hpf (0-5) 04/06/18 18:10 Urine WBC 0-2 /hpf (0-5) 04/06/18 18:10 Ur Epithelial Cells NONE SEEN /lpf (FEW) 04/06/18 18:10 Urine Bacteria FEW /hpf (NONE SEEN) 04/06/18 18:10 Vancomycin Trough 5.9 ug/mL (5-10) 04/07/18 07:45 - Physical Exam Vitals and I&O: Vital Signs Temp 97.6 F 04/08/18 08:00 Pulse 95 04/08/18 08:00 Resp 16 04/08/18 08:00 BP 114/60 04/08/18 08:00 Pulse Ox 97 04/08/18 08:00 Intake & Output 04/07/18 04/08/18 04/08/18 18:59 06:59 18:59 Intake Total 900 1700 125 Balance 900 1700 125 Weight (lbs) 72.121 kg 66.95 kg Intake: Intake, IV Amount 100 1700 D5-0.9%Ns 1,000 ml @ 80 1000 mls/hr IV .[id number] [facility] Rx #:[id number] Piperacillin Sodium/ 100 200 Tazobact 4.5 gm In Sodium Chloride 0.9% 100 ml @ 100 mls/hr IV Q8HR [facility] Rx #:[id number] Vancomycin HCl 1.5 gm In 500 Sodium Chloride 0.9% 500 ml @ 250 mls/hr IV Q12H [facility] Rx#:[id number] Oral 800 125 Other: # Voids 3 3 # Bowel Movements 0 0 Weight Source Bedscale Bedscale Active Medications: Current Medications Acetaminophen (Tylenol) 650 mg PO Q4H PRN PRN Reason: Pain Or Fever above 101 Stop: 06/05/18 12:34 Acetaminophen/Hydrocodone Bitart ([place] 5mg/325mg) 1 tab PO Q4H PRN PRN Reason: Pain (Severe) Stop: 06/05/18 12:34 Al Hydrox/Mg Hydrox/Simethicone (Maalox) 30 ml PO Q6H PRN PRN Reason: Dyspepsia Stop: 06/05/18 12:34 Albuterol Sulfate (Albuterol 2.5mg/3ml Neb Ud) 2.5 mg HHN Q2HRT PRN PRN Reason: Shortness of Breath or Wheeze Stop: 06/05/18 12:33 Guaifenesin (Robitussin) 200 mg PO Q4HR PRN PRN Reason: Cough or Congestion Stop: 06/05/18 12:34 Haloperidol Decanoate (Haldol Dec) 50 mg IM [id number] [facility] Stop: 06/05/18 12:44 Piperacillin Sod/Tazobactam (Sod 4.5 gm/ Sodium Chloride) 100 mls @ 100 mls/hr IV Q8HR [facility] Stop: 06/05/18 12:59 Last Infusion: 04/08/18 05:50 Dose: Infused Vancomycin HCl 1.5 gm/ Sodium (Chloride) 500 mls @ 250 mls/hr IV Q12H [facility] Stop: 06/06/18 20:59 Last Admin: 04/08/18 10:06 Dose: 250 mls/hr Ipratropium [place] (Atrovent Neb 0.5mg/2.5ml) 0.5 mg IH Q2HRT PRN PRN Reason: Shortness of Breath or Wheeze Stop: 06/05/18 12:33 Lorazepam (Ativan) 1 mg PO Q6H PRN; Protocol PRN Reason: Anxiety Stop: 06/05/18 12:32 Miscellaneous (Vancomycin Iv Per Pharmacy) 1 ea [facility] DAILY [facility] Stop: 06/05/18 12:44 Olanzapine (Zyprexa) 15 mg PO BID [facility]; Protocol Stop: 06/05/18 16:59 Last Admin: 04/08/18 08:55 Dose: 15 mg Ondansetron HCl (Zofran) 4 mg IV Q8H PRN PRN Reason: Nausea / Vomiting Stop: 06/05/18 12:34 General: demented, appears older HEENT: NC/AT, PERRLA, EOMI, thinning hair Neck: Supple, No JVD, No thyromegaly Lungs: congested Cardiovascular: RRR, Normal S1, Normal S2 Abdomen: soft, non-tender, non-distended, positive bowel sound Extremities: excoriation, other (redness back) Neurological: no change - Procedures Procedures: Procedures Procedure Code Date DRAINAGE OF BACK SKIN, EXTERNAL APPROACH, DIAGNOSTIC [id number] 04/06/18 EXCISION OF BACK SUBCU/FASCIA, OPEN APPROACH [id number] 04/06/18 Internal Medicine Assmt/Plan - Assessment Assessment: ASSESSMENT: Left posterior abscess, acute cellulitis, leukocytosis, hyponatremia, hypokalemia, microcytic anemia, hypertension, psychosis, chronic neck pain. - Plan Plan: PLAN: The patient to be admitted to the telemetry unit. We will get surgical consultation. We will get follow up labs. We will treat the patient with IV Zosyn and vancomycin. We will send wound for cultures and urine for culture as well. IV fluids for hydration. We will continue to monitor this patient.
[2018-04-08] MEDS ORDERED: D5-0.9%NS 1,000 ML IV SCH (13:00)
--- NOTE | 2018-04-08 18:52 | Progress Notes ---
DATE: 04/08/2018 SUBJECTIVE: The patient was seen in ICU, status post surgery. Remains passively cooperative. Still guarded, paranoid. States she is waiting for her son. The patient is still demanding to be called Dr. Dubois. ASSESSMENT: The patient is still paranoid, anxious, but she is not agitated at this time. We will continue current plan. Continue medication management. Continue supportive measures, monitor closely. Continue current dose of Zyprexa. JOB# [id number]
[2018-04-09] MEDS: Vancomycin HCl 1.5 GM in Sodium Chloride 0.9% 500 ML IV SCH (08:28)
[2018-04-09 11:08] LABS: FOLIC ACID 13.1 ng/mL (>3.0)
--- NOTE | 2018-04-09 13:56 | Discharge Summary ---
DATE OF DISCHARGE: 04/09/2018 DISCHARGE DIAGNOSES: Left posterior abscess, acute cellulitis, leukocytosis, hyponatremia, hypokalemia, microcytic anemia, hypertension, psychosis, chronic neck pain. HISTORY OF PRESENT ILLNESS: This is a 62-year-old female who is well known to me from [facility]. For 1 week, the patient has been having left superior lesion. A week ago, it started off as a pimple. The patient was treated with Keflex 500 mg. Despite of receiving Keflex, the patient's wound got worse. For this reason, the patient was sent out to [facility] to be evaluated. PHYSICAL EXAMINATION: GENERAL: Elderly female, awake with some confusion. No apparent distress. VITAL SIGNS: Stable. HEAD: Normocephalic, atraumatic. NECK: Supple. No mass. LUNGS: Clear bilaterally. HEART: Regular rate and rhythm. ABDOMEN: Soft, nontender. SKIN: Left posterior site noted with some redness. HOSPITAL COURSE: During the hospitalization, the patient was admitted to the Telemetry Unit. The patient was treated with IV antibiotics of Zosyn. Wound culture was done and grew MRSA. Initially, the patient's white count upon admission was 20.4. The patient had a surgical consultation done with Dr. Triana. On 04/07/2017, the patient had an incision and drainage of the left upper back abscess. The patient tolerated the procedure well. Due to the need of continuation of antibiotics, it was then decided for the patient to be transferred to [facility]. CONDITION UPON DISCHARGE: Fair. DISPOSITION: [facility]. [facility]# [id number]
--- NOTE | 2018-04-09 19:27 | Progress Notes ---
DATE: 04/09/2018 SURGICAL PROGRESS NOTE TIME: 11:44 a.m. OBJECTIVE: VITAL SIGNS: The patient is afebrile. Vital signs are otherwise stable. BACK: Wound is clean and dry. Dressing change today with wound care team nurse. CHEST: Clear to auscultation bilaterally. HEART: Regular rate. ABDOMEN: Soft, nontender, nondistended. LABORATORY DATA: Yesterday, white blood cell count 14, H and H is 9 and 28.6, platelet count 299. Chem-7 was fairly unremarkable. The patient remains on Zosyn antibiotic and vancomycin. IMPRESSION/PLAN: Continue local wound care. Dressing changes on a daily basis. Reportedly, plans to transfer the patient to long-term acute care. If it is one of the facilities that I go to, I will try to follow up the patient there. Daily dressing changes with wet to dry gauze. Continue IV antibiotics. We will follow up with the wound culture results, reveals Staph aureus MRSA isolated. Gram stain from 04/07 at 01:00: Many white blood cells, no epithelial cells, many gram-positive cocci. This isolated presumed to be methicillin-resistant based on PBP2a test. Cultures are in progress. JOB# [id number]
--- NOTE | 2018-04-09 23:13 | Progress Notes ---
DATE: 04/09/2018 SUBJECTIVE: The patient was seen, remains superficial, disorganized, still irritable, still delusional chronically, asking staff to call Dr. Dubois, but she is passively cooperative. The patient has no suicidal or homicidal thoughts. Her sleep and appetite are fair. ASSESSMENT AND PLAN: We will continue Zyprexa at current dose. The patient is also on Haldol Decanoate 100 mg IM every 4 weeks. [facility]# [id number]
== END 2018-04-09 19:50 | DRG 854 ==
LOC: ER 10:17 → TELE 12:16 → ICU 04-07 19:13 → TELE 04-08 18:40
PROVIDERS: ADMIT Internal Medicine; ATTEND Internal Medicine
PROC: 0JB70ZZ Excision of Back Subcutaneous Tissue and Fascia, Open Approach (ICD-10-PCS; principal; 2018-04-07)
DX: A41.9 Sepsis, unspecified organism (principal); E87.1 Hypo-osmolality and hyponatremia; E44.0 Moderate protein-calorie malnutrition; L02.212 Cutaneous abscess of back [any part, except buttock and flank]; L03.221 Cellulitis of neck; E87.6 Hypokalemia; D64.9 Anemia, unspecified; I10 Essential (primary) hypertension; F29 Unspecified psychosis not due to a substance or known physiological condition; F22 Delusional disorders; F17.210 Nicotine dependence, cigarettes, uncomplicated; G89.29 Other chronic pain; D50.9 Iron deficiency anemia, unspecified; Z98.51 Tubal ligation status; Z88.5 Allergy status to narcotic agent; Z68.23 Body mass index [BMI] 23.0-23.9, adult; Z88.8 Allergy status to other drugs, medicaments and biological substances
CPT/HCPCS: 36415-UA; 71045-TC; 80048-TC; 80053-TC; 80202-TC; 81001-TC; 82140-TC; 82607-90; 82746-90; 82948-90; 83605; 83735-TC; 83880-TC; 84443-TC; 85007-TC; 85025-TC; 85610-TC; 85730-TC; 87070-90; 87075-90; 87205-90; 93005; J1631; J2543; J2704; J3010; J3370; J3475; J7030; J7040; J7042; V2790; Z7610